=== PATIENT | female | born 1950 | race Caucasian/White ===

== ENCOUNTER 2023-01-29 15:03 | Emergency (ER) | payer MEDICARE, SELFPAY ==
[2023-01-29 15:11] VITALS: BP 134/84; PULSE 67; RESP 16; TEMP 36.7; O2SAT 96; BMI 31.2
--- NOTE | 2023-01-29 15:22 | CRLHL7_ITS ---
For Patients: As a result of the Cures Act, medical imaging exams and procedure reports are released immediately into your electronic medical record. You may view this report before your referring provider. If you have questions, please contact your health care provider. INDICATION: Status post fall with right rib pain. COMPARISON: None available. TECHNIQUE: The right ribs were examined with AP along with AP inferior spot and oblique inferior spot views along with a PA view of the chest for a total of 3 views. FINDINGS: The technologist has indicated the area of pain in the anterior inferior right lower chest, corresponding to the anterior 9th rib. There is no sign of any fracture or osseous destruction in this region to correspond to the clinical symptoms. There is no sign of abnormality of the ribs elsewhere, with no sign of fracture or destructive lesion. There is no sign of pneumothorax. The lungs are clear and the heart and mediastinum are normal in appearance. IMPRESSION: Normal right ribs and PA chest. Dictated by Jamari Freeman MD @ 01/29/2023 4:43:07 PM (Electronically Signed)
--- NOTE | 2023-01-29 17:06 | ED.GENADULT ---
HPI - General Adult General Chief complaint: Rib Pain Stated complaint: fell, pain right ribcage area Time Seen by Provider: 01/29/23 16:25 History of Present Illness HPI narrative: This 72-year-old female comes in with right lower anterior rib pain. She states that she fell a couple days ago and thinks that she landed on her right arm that caused injury to her right ribs. She did not hit her head or have loss of consciousness. She felt rather well initially but over these past couple days now has worsening pain especially when taking a deep breath or coughing. She also has some pain with certain movements and positions typical of a rib injury. She does not report any shortness of breath. Related Data Home Medications Medication Instructions Recorded Confirmed amlodipine PO 03/21/22 03/21/22 atorvastatin PO 03/21/22 03/21/22 dulaglutide [Trulicity] subcut 03/21/22 03/21/22 glyburide PO 03/21/22 03/21/22 metformin PO 03/21/22 03/21/22 cephalexin 500 mg capsule 500 mg PO 3XD 01/29/23 01/29/23 diclofenac sodium 1 % topical gel 2 g topical QID 01/29/23 01/29/23 dulaglutide 3 mg/0.5 mL 3 mg subcut 01/29/23 subcutaneous pen injector (Trulicity) glimepiride 4 mg tablet mg PO 01/29/23 hydrochlorothiazide 50 mg tablet 50 mg PO DAILY 01/29/23 01/29/23 levetiracetam 1,000 mg tablet 1,000 mg PO BID 01/29/23 01/29/23 levothyroxine 100 mcg tablet 100 mcg PO QAM 01/29/23 01/29/23 lisinopril 40 mg tablet 40 mg PO DAILY 01/29/23 01/29/23 metformin 500 mg tablet,extended 2,000 mg PO DAILY 01/29/23 01/29/23 release 24 hr Previous Rx's Medication Instructions Recorded ketorolac 10 mg tablet 10 mg PO Q8H 5 days #15 tabs 01/29/23 Allergies Allergy/AdvReac Type Severity Reaction Status Date / Time niacin AdvReac Mild Rash Verified 01/29/23 15:19 clindamycin AdvReac Unknown Verified 01/29/23 15:19 piroxicam AdvReac Unknown Verified 01/29/23 15:19 penicillin G AdvReac Hives Verified 01/29/23 15:19 nuts Allergy Severe swelling Uncoded 03/21/22 15:40 shellfish Allergy Severe swelling Uncoded 03/21/22 15:40 seafood Allergy Intermediate blood Uncoded 03/21/22 15:40 blisters Review of Systems Status of ROS: Reports: 10 or more systems reviewed and unremarkable except as noted in History and below Narrative: Constitutional: No fevers, no weight gain or loss. Eyes: No discharge. No vision changes. HENT: No congestion, no sore throat, no ear pain. Cardiovascular: No chest pain, no palpitations. Respiratory: No shortness of breath, no wheezes, no cough. Right anterior rib pain. Gastrointestinal: No abdominal pain, no vomiting, no diarrhea. Genitourinary: No dysuria, no hematuria. Musculoskeletal: Normal range of motion. Skin: No rashes, no pruritis. Neurological: No dizziness, weakness, sensory change, speech change. Endo/Heme/Allergies: No bruising or bleeding. No polydipsia. Pysch: no suicidality, no anxiety, no insomnia. All other systems reviewed and are negative. PFSH PFS Social History Smoking Status: Never smoker Exam Narrative: Exam Narrative: Constitutional: Well-developed, well-nourished, no acute distress. HEENT: Normocephalic, atraumatic. Neck: Normal range of motion. Nontender. Supple. Heart: Intact distal pulses. Lungs: No wheezes, rhonchi, or rales. Chest: Distinct pain in the right anterior lower ribs just below her right breast is reproduced when taking a deep breath and when palpating in this area. Abdomen: Nontender. Back: Normal range of motion. Extremities: Normal range of motion. No injury. Skin: Intact. No rash. Warm. No erythema or pallor. Neurologic: No altered sensation. No weakness. Alert and oriented. Psychiatric: No suicidality. No anxiety or depression. No insomnia. Nursing notes and vitals signs are reviewed. Const: Vital Signs, click to edit/add: Vital Signs - 24 hr 01/29/23 15:11 Temperature 98.1 F Pulse Rate [Pulse Oximeter] 67 Respiratory Rate 16 Blood Pressure [Le ft Upper Arm] 134/84 Pulse Oximetry 96 Oxygen Delivery Me thod Room Air Course Vital Signs Vital signs: Initial Vital Signs Temperature 98.1 F 01/29/23 15:11 Temperature Source Temporal Artery Scan 01/29/23 15:11 Pulse Rate 67 01/29/23 15:11 Pulse Rhythm Regular 01/29/23 15:11 Pulse Strength 3+ Normal 01/29/23 15:11 Respiratory Rate 16 01/29/23 15:11 Blood Pressure 134/84 01/29/23 15:11 Blood Pressure Mean 100 01/29/23 15:11 Blood Pressure Position Sitting 01/29/23 15:11 Pulse Oximetry 96 01/29/23 15:11 Oxygen Delivery Method Room Air 01/29/23 15:11 Vital Signs Temperature 98.1 F 01/29/23 15:11 Pulse Rate 67 01/29/23 15:11 Respiratory Rate 16 01/29/23 15:11 Blood Pressure 134/84 01/29/23 15:11 Pulse Oximetry 96 01/29/23 15:11 Oxygen Delivery Method Room Air 01/29/23 15:11 Temperature 98.1 F 01/29/23 15:11 Pulse Rate 67 01/29/23 15:11 Respiratory Rate 16 01/29/23 15:11 Blood Pressure 134/84 01/29/23 15:11 Pulse Oximetry 96 01/29/23 15:11 Oxygen Delivery Method Room Air 01/29/23 15:11 Medical Decision Making MDM Narrative Medical decision making narrative: This patient fell injuring her right anterior lower ribs. This occurred a couple days ago in our rib pain is worsening. Chest x-ray shows no sign of fracture or injury to her lungs. The patient did receive a rib belt which brought some relief to her symptoms. I also did provide a prescription for Toradol. Imaging Data Chest x-ray: Radiologist's impression: No acute findings. No rib fracture or pulmonary disease. Discharge Plan Discharge Clinical Impression: Rib injury Patient Disposition: Home, Self-Care Condition: Unchanged Additional Instructions: Wear rib belt as needed. Activity as tolerated. Use medication as needed and directed. Follow up with MD return if worsening. Prescriptions: New ketorolac 10 mg tablet 10 mg PO Q8H 5 Days Qty: 15 0RF No Action dulaglutide [Trulicity] subcut amlodipine PO glyburide PO metformin PO atorvastatin PO hydrochlorothiazide 50 mg tablet 50 mg PO DAILY levothyroxine 100 mcg tablet 100 mcg PO QAM cephalexin 500 mg capsule 500 mg PO 3XD glimepiride 4 mg tablet PO lisinopril 40 mg tablet 40 mg PO DAILY metformin 500 mg tablet extended release 24 hr 2,000 mg PO DAILY levetiracetam 1,000 mg tablet 1,000 mg PO BID diclofenac sodium 1 % gel 2 g topical QID Trulicity 3 mg/0.5 mL pen injector 3 mg subcut Follow Up/Referrals: Miles Deshpande MD [Primary Care Provider] - Stand Alone Forms: [facility] Info Instructions
== END 2023-01-29 17:24 | disposition home or self-care (01) ==
LOC: ED 17:16
PROVIDERS: Emergency Provider Emergency Medicine Emergency Medical Services; PCP Family Medicine
DX: S29.8XXA Other specified injuries of thorax, initial encounter (principal); W19.XXXA Unspecified fall, initial encounter
CPT/HCPCS: 71101; 99283; 99284

== ENCOUNTER 2023-12-03 00:39 | Outpatient (CLI) | payer MEDICARE, SELFPAY ==
--- OUTSIDE RECORDS SUMMARY | 2023-12-04 17:07 | XMS_ITS | Clinical Summary ---
Author Organization [facility] Address [place], [place] [address] Care Team Providers Care Protohistorian Name Role Phone Miles Deshpande MD Primary [...] Description 11/20/2023 1:00 PM CDT Orders Only [facility] [address] [place] [address] [place], [place] Lab 11/19/2023 2:55 PM CDT Office Visit [facility] [address] [facility] [address] Miles Deshpande MD Diabetes (3 month follow up); Follow Up (Ongoing joint pain) 11/19/2023 Travel 09/14/2023 Refill [facility] [address] [facility] [address] Miles Deshpande MD Refill Request (Glimepiride, Metformin) from Last 3 Months Immunizations Name Administration Dates Next Due Amb Influenza, Inactivated A IIV4 (Age 65+ Years) Preserv Free 04/02/2020 COVID-19 Vaccine Spikevax (M oderna 50mcg/0.5mL) 12YO+ 5530-9999 Formula PF 04/04/2023 COVID-19 vaccine (Bethany-J& J) PF, MDV 08/31/2020 COVID-19 vaccine (Moderna 100mcg/0.5mL) PF, MDV 10/22/2021,04/24/2021 COVID-19 vaccine (Pfizer-Bio NTech 30mcg/0.3mL) 12YO+ BIVALENT PF, MDV 11/11/2022 DTaP 10/13/2011 Influenza Virus, Unspecified 03/12/2009 Influenza, High-dose Inactivated 03/13/2017,1007/2015,03/26/2015 Influenza, High-dose Quadriv alent Inactivated 03/31/2022,03/27/2021 Influenza, [...] st Contact Info) Description 05/27/2024 10:40 AM ROCK CUTTER Ancillary Procedure [facility] [address] [place] [address] 05/31/2024 1:00 PM ROCK CUTTER Orders Only [facility] [address] [place] [address] [place] 05/31/2024 1:15 PM ROCK CUTTER Office Visit [facility] [address] [place] [address] Miles Deshpande MD [address] [place] [address] Health Maintenance Due Date Last Done Comments [...] 02/11/2024 02/10/2023, 04/23/2021, 06/08/2020 (Completed outside of [facility] [address] [facility]), Additional history exists Influenza for age 65+ [...] Post-menopausal ANTI HCV Routine 07/10/2017 4:23 PM ROCK CUTTER Need for hepatitis C screening test from Last 3 Months or Most Recently Relevant to Health Maintenance Results * URINE ALBUMIN TO CREATININE RATIO, RANDOM (11/20/2023 12:58 PM CDT) ALB RAND URINE <12.0 mg/L 11/21/2023 3:58 AM CDT [facility] CREATININE,URINE 0.88 g/L 11/21/19 3:58 AM CDT [facility] ALBUMIN TO CREATININE RATIO,RAND UR 11/21/2023 3:58 AM CDT [facility] Comment:Urine Albumin below measurement range, unable to calculate. Urine URINE SPECIMEN / Unknown Non-Blood / Unknown 11/20/2023 12:58 PM CDT 11/20/2023 12:58 PM CDT Narrative [facility] - 11/21/2023 3:58 AM CDT If Albumin to Creatinine Ratio is elevated, consider the following: ? Elevations seen with incipient nephropathy associated ?? with diabetes mellitus or hypertension. Stress, exercise,hematuria, ?? and urinary tract infection may also produce elevated results. If clinically indicated, confirm with ?24 Hour Albumin to Creatinine Ratio. ?? Miles Deshpande MD URINE [facility] [address] [place] [address], * TSH WITH REFLEX (11/19/2023 2:16 PM CDT) TSH 2.28 0.27 - 4.20 uIU/mL 11/19/2023 11:29 PM CDT [facility] Blood BLOOD SPECIMEN / Unknown Venipuncture / Unknown 11/19/2023 2:16 PM CDT 11/19/2023 2:17 PM CDT Narrative [facility] - 11/19/2023 11:29 PM CDT In Adults, TSH values between 5.00 and 10.00 uIU/ml do not necessarily indicate the presence of Hypothyroidism. Correlation with clinical findings such as presence of goiter and/or Thyroperoxidase (TPO) Antibody may be helpful. For more information please refer to NAUN 2004; 291: 228-238. Miles Deshpande MD CHEMISTRY Performing Organization Address City/[facility]/ZIP Co de Phone Number [facility] [address] [place] [id number], [place] * LIPID PANEL W REFLEX MEASURED LDL (11/19/2023 2:16 PM CDT) CHOLESTEROL,TOTAL 102 100 - 199 mg/dL 11/19/2023 11:29 PM CDT [facility] Comment: Cholesterol, Total Reference Ranges Desirable <200 mg/dL Borderline 200-239 mg/dL High >=240 mg/dL TRIGLYCERIDES 99 <150 mg/dL 11/19/2023 11:29 PM CDT [facility] HDL CHOLESTEROL 49 >40 mg/dL 11:29 PM CDT [facility] NON-HDL CHOLESTEROL 53 <145 mg/dl 11/19/2023 11:29 PM CDT [facility] CHOL/HDL RATIO 2.08 <4.50 11/19/2023 11:29 PM CDT [facility] LDL CHOLESTEROL 33 <=130 mg/dL 11/19/2023 11:29 PM CDT [facility] VLDL CHOLESTEROL 20 <=30 mg/dL 11/19/2023 11:29 PM CDT [facility] PROVIDER ORDERED STATUS RANDOM 11/19/2023 11:29 PM CDT [facility] Blood BLOOD SPECIMEN / Unknown Venipuncture / Unknown 11/19/2023 2:16 PM CDT 11/19/2023 2:17 PM CDT Miles Deshpande MD CHEMISTRY Performing Organization Address [facility]/ZIP Co de Phone Number [facility] [address] [address], [place] * (ABNORMAL) HEMOGLOBIN A1C MONITORING (POCT) (11/19/2023 2:16 PM CDT) [facility] HEMOGLOBIN A1C MONITORING (POCT) 7.5(H) <=6.4 % 11/19/2023 2:26 PM CDT [facility] Blood BLOOD SPECIMEN / Unknown Venipuncture / Unknown 11/19/2023 2:16 PM CDT 11/19/2023 2:17 PM CDT Narrative [facility] - 11/19/2023 2:26 PM CDT ? [...] Anemias, Splenectomy ? Miles Deshpande MD CHEMISTRY [facility] [address] [place] [address], * HEPATIC FUNCTION PANEL (11/19/2023 2:16 PM CDT) [facility] ALBUMIN 4.5 4.0 - 4.9 g/dL 11/19/2023 11:29 PM CDT [facility] PROTEIN,TOTAL 7.8 6.0 - 8.0 g/dL 11/19/2023 11:29 PM CDT [facility] BILIRUBIN,TOTAL 0.7 0.0 - 1.2 mg/dL 11/19/2023 11:29 PM CDT [facility] BILIRUBIN,DIRECT 0.2 0.0 - 0.3 mg/dL 11/19/2023 11:29 PM CDT [facility] BILIRUBIN,INDIRE CT 0.5 0.2 - 0.8 mg/dL 11/19/2023 11:29 PM CDT [facility] ALK PHOSPHATASE 70 35 - 104 IU/L 11/19/2023 11:29 PM CDT [facility] ALT (SGPT) 17 10 - 35 IU/L 11/19/2023 11:29 PM CDT [facility] AST (SGOT) 22 10 - 35 IU/L 11/19/2023 11:29 PM CDT [facility] Blood BLOOD SPECIMEN / Unknown Venipuncture / Unknown 11/19/2023 2:16 PM CDT 11/19/2023 2:17 PM CDT Miles Deshpande MD CHEMISTRY [facility] [address] [place] [address], * (ABNORMAL) BASIC METABOLIC PANEL (11/19/2023 2:16 PM CDT) SODIUM 139 136 - 145 mmol/L 11/19/2023 11:29 PM CDT [facility] POTASSIUM 4.3 3.5 - 5.1 mmol/L 11/19/2023 11:29 PM CDT [facility] CHLORIDE 100 98 - 107 mmol/L 11/19/2023 11:29 PM CDT [facility] CO2,TOTAL 26 22 - 29 mmol/L 11/19/2023 11:29 PM T [facility] ANION GAP 13 5 - 18 11/19/2023 11:29 PM CDT [facility] GLUCOSE 144(H) 70 - 99 mg/dL 11/19/2023 11:29 PM CDT [facility] CALCIUM 10.2 8.8 - 10.2 mg/dL 11/19/2023 11:29 PM CDT [facility] BUN 31(H) 8 - 23 mg/dL 11/19/2023 11:29 PM T [facility] CREATININE 1.11(H) 0.50 - 0.90 mg/dL 11/19/2023 11:29 PM CDT [facility] BUN/CREAT RATIO 28(H) 10 - 20 11:29 PM CDT [facility] eGFR 53(L) >90 mL/min/1.7 3m2 11/19/2023 11:29 PM CDT [facility] Comment:As of 2021, eG [...] 2:17 PM CDT Miles Deshpande MD CHEMISTRY [facility] [address] [place] [address], * XR MAMMO SHIVANI BILAT SCREEN (02/24/2023 [...] care provider. XR MAMMO SHIVANI BILAT SCREEN [[id number]] CLINICAL HISTORY: ??This is an asymptomatic 72 y.o. patient. INDICATION FOR EXAM: Mammogram Screening. TECHNIQUE: CC & MLO views were obtained. ??This study was evaluated with the assistance of Computer-Aided Detection. Breast Tomosynthesis was used in interpretation. COMPARISON FILM: Yes 12/30/21 [facility] 11/05/20 [facility] FINDINGS: ??The breasts have scattered areas of fibroglandular density. There are no dominant masses, suspicious micro calcifications or areas of architectural distortion. Miles Deshpande MD MAMMO * OCCULT BLOOD IFOBT STOOL (02/10/2023 11:49 AM CDT) STOOL BLOOD ,IFOBT Negative Negative 02/16/2023 12:31 PM CDT [facility] Stool STOOL SPECIMEN / Unknown Non-Blood / Unknown 02/10/2023 11:49 AM CDT 02/16/2023 11:49 AM CDT Miles Deshpande MD LABORATORY Performing Organization Address City/State/[facility] Co de Phone Number [facility] [address] [place] [address], * (ABNORMAL) XR DXA BONE DENSITY 2 [...] recommended in 3-5 years. Nicolasa Betancourt PA-C [facility] 11/06/2020 Narrative 11/06/2020 3:29 PM CDT XR DXA Bone Mineral Density (BMD) EXAM LOCATION: [address] [address] PATIENT NAME: Gracia Wyatt DATE OF : [...] two scanners are made by the same bundle tier. PROCEDURE: Dual-energy x-ray absorptiometry performed with routine [...] Miles Deshpande MD DEXA * ANTI HCV [[id number]] (07/10/2017 4:23 PM ROCK CUTTER) HEPATITIS C ANTIBODY Non-Reacti ve Non-Reacti ve 07/10/2017 10:34 PM ROCK CUTTER [facility] Blood BLOOD SPECIMEN / Unknown Venipuncture / Unknown 07/10/2017 4:23 PM ROCK CUTTER 07/10/2017 4:23 PM ROCK CUTTER Narrative [facility] - 07/10/2017 10:34 PM ROCK CUTTER Antibodies to HCV not detected; does not exclude the possibility of exposure to HCV. Miles Deshpande MD SEND OUTS [facility] [address] [place] [address], from Last 3 Months or Most Recently Relevant to Health Maintenance Care Teams Protohistorian Relationship Specialty Start Date End Date Miles Deshpande MD [address] [place] [address] PCP - General Family Practice 05/18/17
== END 2023-12-03 00:40 | disposition home or self-care (01) ==
LOC: AMB 12-04 17:05
PROVIDERS: PCP Family Medicine; Visit Provider Emergency Medicine
DX: R11.10 Vomiting, unspecified (principal); R53.1 Weakness; R42 Dizziness and giddiness
CPT/HCPCS: A0425; A0427

== ENCOUNTER 2023-12-03 01:18 | Emergency (ER) | payer MEDICARE, SELFPAY ==
[2023-12-03 01:25] VITALS: BP 125/60; PULSE 62; RESP 16; TEMP 36.7; O2SAT 97
[2023-12-03 01:41] VITALS: O2SAT 95
--- NOTE | 2023-12-03 01:41 | CRLHL7_ITS ---
For Patients: As a result of the Cures Act, medical imaging exams and procedure reports are released immediately into your electronic medical record. You may view this report before your referring provider. If you have questions, please contact your health care provider. INDICATION: VOMITTING, VERTIGO, LT NECK PAIN TECHNIQUE: Head CT without contrast. COMPARISON: None. FINDINGS: Left occipital craniotomy with underlying left cerebellar and occipital encephalomalacia. Mild nonspecific low attenuation white matter changes consistent with chronic microvascular disease. No sign of mass effect, hemorrhage, or midline shift. No midline shift. The visualized paranasal sinuses and mastoid air cells demonstrate no acute or significant findings. The visualized orbits are grossly unremarkable. No skull fractures. IMPRESSION: 1. No evidence of acute intracranial abnormality on this unenhanced CT. 2. Left occipital craniotomy with underlying left cerebellar and occipital encephalomalacia. 3. Mild nonspecific low attenuation white matter changes consistent with chronic microvascular disease. Please note that all CT scans at this facility use dose modulation, iterative reconstruction, and/or weight-based dosing when appropriate to reduce radiation dose to as low as reasonably achievable. Dictated by Boni Browning MD @ 12/03/2023 4:20:54 AM (Electronically Signed)
--- NOTE | 2023-12-03 01:41 | CRLHL7_ITS ---
For Patients: As a result of the Century Cures Act, medical imaging exams and procedure reports are released immediately into your electronic medical record. You may view this report before your referring provider. If you have questions, please contact your health care provider. CLINICAL HISTORY: Vomiting; vertigo and left neck pain. TECHNIQUE: Standard helical CT image acquisition through the head following the administration of intravenous contrast was performed. 3D and MIP reconstructions were performed at a separate workstation and permanently archived. COMPARISON: None available. FINDINGS: No intracranial proximal large vessel occlusion or flow-limiting luminal stenosis. No evidence of cerebral aneurysm. No findings to suggest an arterial-venous shunting lesion. IMPRESSION: No intracranial proximal large vessel occlusion, flow-limiting luminal stenosis, or cerebral aneurysm. Please note that all CT scans at this facility use dose modulation, iterative reconstruction, and/or weight-based dosing when appropriate to reduce radiation dose to as low as reasonably achievable. Dictated by Shon Marquez MD @ 12/03/2023 2:35:54 PM (Electronically Signed)
--- NOTE | 2023-12-03 01:41 | CRLHL7_ITS ---
For Patients: As a result of the Century Cures Act, medical imaging exams and procedure reports are released immediately into your electronic medical record. You may view this report before your referring provider. If you have questions, please contact your health care provider. CLINICAL HISTORY: Vomiting; vertigo and left neck pain. TECHNIQUE: Standard helical CT image acquisition through the neck was performed after intravenous contrast bolus enhancement. 3D and MIP reconstructions were performed at a separate workstation and permanently archived. COMPARISON: None available. FINDINGS: The origins of the great vessels from the aortic arch are patent. The common carotid arteries are patent. No significant luminal stenoses of the proximal ICAs by NASCET criteria. The more distal cervical segments of the ICAs are patent. The origins and cervical segments of the vertebral arteries are patent. IMPRESSION: Patent cervical arterial vasculature without hemodynamically significant luminal stenosis. Please note that all CT scans at this facility use dose modulation, iterative reconstruction, and/or weight-based dosing when appropriate to reduce radiation dose to as low as reasonably achievable. Dictated by Shon Marquez MD @ 12/03/2023 2:34:12 PM (Electronically Signed)
--- OUTSIDE RECORDS SUMMARY | 2023-12-03 01:49 | XMS_ITS | Clinical Summary ---
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 0 8 Active cholecalciferol (VITAMIN D-3) 2,000 unit capsule Take 1 capsule by mouth once daily. 0 8 Active multivitamin (MVI) tablet Take 1 tablet by mouth once daily. 0 8 Active medication order composer Biotin 400 mcg, once daily 0 8 Active medication order composer Flaxseed gel 1200 mg daily 0 8 Active blood-glucose meterIndications:Con trolled type 2 diabetes mellitus without complication, without long-term current use of insulin (HC) Dispense meter, test strips, lancets covered by pt ins. E11.9 NIDDM type II - Test 1 time/day 1 Device 9 Active lutein-zeaxanthin (Ocuvite Lutein 25) 25-5 mg cap Take 1 Capsule by mouth once daily. 0 2 Active melatonin 10 mg tab Take 1 Tablet (10 mg) by mouth at bedtime if needed (sleep). 0 2 Active lysine (L-Lysine) 500 mg tab Take 1 Tablet (500 mg) by mouth 2 times daily with meals. For three days. Uses for itching flare ups 0 2 Active lancetsIndications:C ontrolled type 2 diabetes mellitus with complication, without long-term current use of insulin (HC) Test 1 times per day. 100 Each 3 2 Active levETIRAcetam (KEPPRA) 1,000 mg tabletIndications:Se izure (HC) TAKE ONE TABLET (1000MG) BY MOUTH 2 TIMES DAILY 180 Tablet 2 Active diclofenac topical (Voltaren) 1 % gelIndications:Arthr itis of carpometacarpal (CMC) joint of left thumb Apply 2 g topically to affected area(s) four times daily. 200 g 3 Active blood sugar diagnostic (Contour Next Test Strips) stripIndications:Con trolled type 2 diabetes mellitus with complication, without long-term current use of insulin (HC) TEST 1 TIME DAILY 100 Each 3 3 Active amLODIPine (NORVASC) 5 mg tabletIndications:Es sential hypertension Take 1 Tablet (5 mg) by mouth once daily. 90 Tablet 3 4 Active atorvastatin (LIPITOR) 20 mg tabletIndications:Hy perlipidemia, unspecified hyperlipidemia type Take 1 Tablet (20 mg) by mouth once daily. 90 Tablet 3 4 Active dulaglutide (Trulicity) 3 mg/0.5 mL subcutaneous penIndications:Contr olled type 2 diabetes mellitus with complication, without long-term current use of insulin (HC) Inject 3 mg subcutaneous once weekly. 6 mL 1 4 Active glimepiride (AMARYL) 4 mg tabletIndications:Co ntrolled type 2 diabetes mellitus with complication, without long-term current use of insulin (HC) Take 2 Tablets (8 mg) by mouth once daily with a meal. 180 Tablet 1 4 Active hydroCHLOROthiazide 50 mg tabletIndications:Es sential hypertension Take 1 Tablet (50 mg) by mouth once daily. 90 Tablet 3 4 Active levothyroxine (SYNTHROID) 100 mcg tabletIndications:Hy pothyroidism (acquired) Take 1 Tablet (100 mcg) by mouth before breakfast. 90 Tablet 3 4 Active lisinopriL (PRINIVIL; ZESTRIL) 40 mg tabletIndications:Es sential hypertension Take 1 Tablet (40 mg) by mouth once daily. 90 Tablet 3 4 Active metFORMIN (GLUCOPHAGE XR) 500 mg Extended-Release tabletIndications:Co ntrolled type 2 diabetes mellitus with complication, without long-term current use of insulin (HC) Take 4 Tablets (2,000 mg) by mouth once daily. 360 Tablet 1 4 Active pioglitazone (ACTOS) 30 mg tabletIndications:Co ntrolled type 2 diabetes mellitus with complication, without long-term current use of insulin (HC) Take 1 Tablet (30 mg) by mouth once daily. 90 Tablet 1 4 Active amLODIPine (NORVASC) 5 mg tabletIndications:Es sential hypertension Take 1 Tablet (5 mg) by mouth once daily. 90 Tablet 3 3 11/19/19 24 Discontinu ed(Reorder (E-cancel not sent)) atorvastatin (LIPITOR) 20 mg tabletIndications:Hy perlipidemia, unspecified hyperlipidemia type Take 1 Tablet (20 mg) by mouth once daily. 90 Tablet 3 3 11/19/19 24 Discontinu ed(Reorder (E-cancel not sent)) hydroCHLOROthiazide 50 mg tabletIndications:Es sential hypertension Take 1 Tablet (50 mg) by mouth once daily. 90 Tablet 3 3 11/19/19 24 Discontinu ed(Reorder (E-cancel not sent)) levothyroxine (SYNTHROID) 100 mcg tabletIndications:Hy pothyroidism (acquired) Take 1 Tablet (100 mcg) by mouth before breakfast. 90 Tablet 3 3 11/19/19 24 Discontinu ed(Reorder (E-cancel not sent)) lisinopriL (PRINIVIL; ZESTRIL) 40 mg tabletIndications:Es sential hypertension Take 1 Tablet (40 mg) by mouth once daily. 90 Tablet 3 3 11/19/19 24 Discontinu ed(Reorder (E-cancel not sent)) pioglitazone (ACTOS) 15 mg tabletIndications:Co ntrolled type 2 diabetes mellitus with complication, without long-term current use of insulin (HC) One oral daily for two weeks, then two daily. 180 Tablet 1 4 11/19/19 24 Discontinu ed(Reorder (E-cancel not sent)) dulaglutide (Trulicity) 3 mg/0.5 mL subcutaneous penIndications:Contr olled type 2 diabetes mellitus with complication, without long-term current use of insulin (HC) INJECT 3 MG SUBCUTANEOUS ONCE WEEKLY. 6 mL 4 11/19/19 24 Discontinu ed(Reorder (E-cancel not sent)) glimepiride (AMARYL) 4 mg tabletIndications:Co ntrolled type 2 diabetes mellitus with complication, without long-term current use of insulin (HC) TAKE 2 TABLETS (8 MG) BY MOUTH ONCE DAILY WITH A MEAL. 180 Tablet 4 11/19/19 24 Discontinu ed(Reorder (E-cancel not sent)) metFORMIN (GLUCOPHAGE XR) 500 mg Extended-Release tabletIndications:Co ntrolled type 2 diabetes mellitus with complication, without long-term current use of insulin (HC) TAKE 4 TABLETS (2,000 MG) BY MOUTH ONCE DAILY. 360 Tablet 4 11/19/19 24 Discontinu ed(Reorder (E-cancel not sent)) Active Problems Problem Noted Date Diagnosed Date Arthritis of carpometacarpal (CMC) joint of left thumb 06/27/2022 Meningioma 11/08/2021 Bilateral lower extremity edema 11/17/2019 Ischemic stroke after crani for meningioma 201307/16/2017 Osteopenia 07/16/2017 Hypothyroidism (acquired) 07/10/2017 Controlled type 2 diabetes m ellitus with complication, without long-term current use of insulin 07/10/2017 Essential hypertension 07/10/2017 Hyperlipidemia 07/10/2017 obesity 07/10/2017 Seizure after crani for meningioma 201307/10/19 18 Resolved Problems Problem Noted Date Diagnosed Date Resolved Date Controlled type 2 diabetes with neuropathy 08/17/2023 11/19/2023 Encounters Date Type Department Care Team Description 11/20/2023 1:00 PM CDT Orders Only [facility] [address] [place] [address] [place], [place] Lab 11/19/2023 2:55 PM CDT Office Visit [facility] [address] [facility] [place] [address] Miles Deshpande MD Diabetes (3 month follow up); Follow Up (Ongoing joint pain) 11/19/2023 Travel 09/14/2023 Refill [facility] [address] [facility] [place] [address] Miles Deshpande MD Refill Request (Glimepiride, Metformin) 09/02/2023 Refill [facility] [address] [place] [address] Miles Deshpande MD Refill Request (Trulicity) from Last 3 Months Immunizations Name Administration Dates Next Due Amb Influenza, Inactivated A IIV4 (Age 65+ Years) Preserv Free 04/02/2020 COVID-19 Vaccine Spikevax (M oderna 50mcg/0.5mL) 12YO+ [id number] Formula PF 04/04/2023 COVID-19 vaccine (Bethany-J& J) PF, MDV 08/31/2020 COVID-19 vaccine (Moderna 100mcg/0.5mL) PF, MDV 10/22/2021,04/24/2021 COVID-19 vaccine (Pfizer-Bio NTech 30mcg/0.3mL) 12YO+ BIVALENT PF, MDV 11/11/2022 DTaP 10/13/2011 Influenza Virus, Unspecified 03/12/2009 Influenza, High-dose Inactivated 03/13/2017,10/0 07/2015,03/26/2015 Influenza, High-dose Quadriv alent Inactivated 03/31/2022,03/27/2021 Influenza, IIV3 (Age >=3 years) 04/25/20 14,03/30/2013,04/01/2012,2009,06/02/2008,04/23/2007,03/26/2006 Influenza, IIV4 03/13/2017 Influenza, Inactivated AIIV4 (Age 65+ Years) Preserv Free 04/04/2023 Influenza, Inactivated IIV3 (Age 65+ Years) Preserv Free 04/06/2019,04/19/2018 Pneumococcal Poly,23-Valent (Pneumovax) 05/24/2018 Pneumococcal conj 13-Valent (Prevnar 13) 03/26/2015,05/30/2014 Tdap 04/19/2018 Zoster (Shingrix-RZV, recombinant) 01/13/2019, Zoster (Zostavax-ZVL, live) 04/01/2012 Family History Medical History Relation Name Comments Diabetes Father Heart Disease Father Heart attack Father Cancer-breast Maternal Aunt x2 Cancer-ovarian Mother Diabetes Mother Relation Name Status Comments Father Maternal Aunt Mother Social History Tobacco Use Types Packs/Day Years Used Date Smoking Tobacco: Never Smokeless Tobacco: Never Tobacco Cessation:Counseling Given: No Alcohol Use Standard Drinks/Week Comments No 0 (1 standard drink = 0.6 oz pur e alcohol) PHQ-2 Answer Date Recorded PHQ-2 TOTAL SCORE 1 11/11/2022 Social Connections Answer Date Recorded Frequency of Communication with Friends and Fami ly 0 02/12/2023 Financial Resource Strain Answer Date R ecorded Difficulty of Paying Living Expenses 3 02/12/2023 Difficulty of Paying Living Expenses Not on file 02/12/2023 Food Insecurity Answer Date Recorded Worried About Running Out of Food in the Last Ye ar 1 02/12/2023 Transportation Needs Answer Date Record ed Lack of Transportation (Medical) 1 02/12/2023 Housing Stability Answer Date Recorded Unable to Pay for Housing in the Last Year 1 02/12/2023 Sex and Gender Information Value Date Recorded Sex Assigned at Not on file Gender Identity Not on file Sexual Orientation Not on file Obstetrics History Last Filed Vital Signs Vital Sign Reading Time Taken Comments Blood Pressure 119/75 11/19/2023 2:23 PM CDT Pulse 61 11/19/2023 2:23 PM CDT Temperature 36.9 ??C (98.4 ??F) 11/17/2019 8:56 AM CD T Respiratory Rate - - Oxygen Saturation 97% 11/19/2023 2:23 PM CDT Inhaled Oxygen Concentration - - Weight 96 kg (211 lb 9.6 oz) 11/19/2023 2:23 PM CDT Height 170.7 cm (5' 7.21) 11/11/2022 10:25 AM C DT Body Mass Index 32.94 11/11/2022 10:25 AM CDT Plan of Treatment Upcoming Encounters Date Type Department Care Team (Late st Contact Info) Description 05/27/2024 10:40 AM SURVEY CAD TECHNICIAN Ancillary Procedure [facility] [place] [address] [address] 05/31/2024 1:00 PM SURVEY CAD TECHNICIAN Orders Only [facility] [address] [place] [address] [place], [place] 05/31/2024 1:15 PM SURVEY CAD TECHNICIAN Office Visit [facility] [address] [place] [address] Miles Deshpande MD [address] [place] [address] Health Maintenance Due Date Last Done Comments COVID-19 vaccine series ( season) 2023 04/04/2023, 11/11/2022, 03/10/2022, Additional history exists BMI (ht and wt on same day) for age 18+ 11/12/2023 11/11/2022, 06/27/2022, 05/30/2022, Additional history exists Depression screening for age 12+ 11/12/2023 11/11/2022, 05/30/2022, 11/01/2020, Additional history exists Medicare Wellness for age 65+ 11/12/2023, 11/08/2021, 11/01/2020, Additional history exists Fecal testing non-DNA (FIT,FOBT,iFOBT) for age 45-75 02/11/2024 02/10/2023, 04/23/2021, 06/08/2020 (Completed outside of [facility]), Additional history exists Influenza for age 65+ 02/21/2024 04/04/2023 , 03/31/2022, 03/27/2021, Additional history exists Mammogram for age 45-75 02/25/2024 02/25/20, 12/30/2021, 11/05/2020, Additional history exists Tetanus booster 04/19/2028 04/19/2018 Lipids for age 45-75 11/18/2028 11/19/2023, 11/06/2022, 11/06/2021, Additional history exists Hepatitis C screening for ag e 18-79 Completed 07/10/2017 Tdap Completed 04/19/2018 Pneumococcal series for age 65+ Completed 05/24/2018, 03/26/2015, 05/30/2014 Zoster (shingles) series for age 50+ Completed 01/13/2019, 09/11/2018, 04/01/2012 DEXA/DXA scan for age 65+ Completed 11/05/2020, Procedures Procedure Name Priority Date/Time Associated Diagnosis Comments URINE ALBUMIN TO CREATININE RATIO, RANDOM Routine 11/20/2023 12:58 PM CDT Controlled type 2 diabetes mellitus with complication, without long-term current use of insulin (HC) HEPATIC FUNCTION PANEL Routine 11/19/2023 2:16 PM CDT Controlled type 2 diabetes mellitus with complication, without long-term current use of insulin (HC) HEMOGLOBIN A1C Routine 11/19/2023 2:16 PM CDT Controlled type 2 diabetes mellitus with complication, without long-term current use of insulin (HC) TSH WITH REFLEX Routine 11/19/2023 2:16 PM CDT Hypothyroidism (acquired) BASIC METABOLIC PANEL Routine 11/19/2023 2:16 PM CDT Controlled type 2 diabetes mellitus with complication, without long-term current use of insulin (HC) LIPID PANEL W REFLEX MEASURED LDL Routine 11/19/2023 2:16 PM CDT Controlled type 2 diabetes mellitus with complication, without long-term current use of insulin (HC) XR MAMMO SHIVANI BILAT SCREEN Routine 02/24/2023 1:44 PM CDT Visit for screening mammogram OCCULT BLOOD IFOBT STOOL Routine 02/10/2023 11:49 AM CDT Screening for colorectal cancer XR DXA BONE DENSITY 2 SITES AXIAL Routine 11/05/2020 11:00 AM CDT Post-menopausal ANTI HCV Routine 07/10/2017 4:23 PM SURVEY CAD TECHNICIAN Need for hepatitis C screening test from Last 3 Months or Most Recently Relevant to Health Maintenance Results * URINE ALBUMIN TO CREATININE RATIO, RANDOM (11/20/2023 12:58 PM CDT) ALB RAND URINE <12.0 mg/L 11/21/2023 3:58 AM CDT [facility] CREATININE,URINE 0.88 g/L 11/21/19 3:58 AM CDT [facility] ALBUMIN TO CREATININE RATIO,RAND UR 11/21/2023 3:58 AM CDT [facility] Comment:Urine Albumin below measurement range, unable to calculate. Urine URINE SPECIMEN / Unknown Non-Blood / Unknown 11/20/2023 12:58 PM CDT 11/20/2023 12:58 PM CDT Narrative [facility] - 11/21/2023 3:58 AM CDT If Albumin to Creatinine Ratio is elevated, consider the following: ? Elevations seen with incipient nephropathy associated ?? with diabetes mellitus or hypertension. Stress, exercise,hematuria, ?? and urinary tract infection may also produce elevated results. If clinically indicated, confirm with ?24 Hour Albumin to Creatinine Ratio. ?? Miles Deshpande MD URINE [facility] [address] [place] [address], * TSH WITH REFLEX (11/19/2023 2:16 PM CDT) TSH 2.28 0.27 - 4.20 uIU/mL 11/19/2023 11:29 PM CDT [facility] Blood BLOOD SPECIMEN / Unknown Venipuncture / Unknown 11/19/2023 2:16 PM CDT 11/19/2023 2:17 PM CDT Narrative [facility] - 11/19/2023 11:29 PM CDT In Adults, TSH values between 5.00 and 10.00 uIU/ml do not necessarily indicate the presence of Hypothyroidism. Correlation with clinical findings such as presence of goiter and/or Thyroperoxidase (TPO) Antibody may be helpful. For more information please refer to NAUN 2004; 291: 228-238. Miles Deshpande MD CHEMISTRY Performing Organization Address City/[facility]/ZIP Co de Phone Number [facility] [address] [place] [address], * LIPID PANEL W REFLEX MEASURED LDL (11/19/2023 2:16 PM CDT) [facility] CHOLESTEROL,TOTAL 102 100 - 199 mg/dL 11/19/2023 11:29 PM CDT [facility] Comment: Cholesterol, Total Reference Ranges Desirable <200 mg/dL Borderline 200-239 mg/dL High >=240 mg/dL TRIGLYCERIDES 99 <150 mg/dL 11/19/2023 11:29 PM CDT [facility] HDL CHOLESTEROL 49 >40 mg/dL 11:29 PM CDT [facility] NON-HDL CHOLESTEROL 53 <145 mg/dl 11/19/2023 11:29 PM CDT [facility] CHOL/HDL RATIO 2.08 <4.50 11/19/2023 11:29 PM CDT [facility] LDL CHOLESTEROL 33 <=130 mg/dL 11/19/2023 11:29 PM CDT [facility] VLDL CHOLESTEROL 20 <=30 mg/dL 11/19/2023 11:29 PM CDT [facility] PROVIDER ORDERED STATUS RANDOM 11/19/2023 11:29 PM CDT [facility] Blood BLOOD SPECIMEN / Unknown Venipuncture / Unknown 11/19/2023 2:16 PM CDT 11/19/2023 2:17 PM CDT Miles Deshpande MD CHEMISTRY [facility] [address] [place] [address], * (ABNORMAL) HEMOGLOBIN A1C MONITORING (POCT) (11/19/2023 2:16 PM CDT) [facility] HEMOGLOBIN A1C MONITORING (POCT) 7.5(H) <=6.4 % 11/19/2023 2:26 PM CDT [facility] Blood BLOOD SPECIMEN / Unknown Venipuncture / Unknown 11/19/2023 2:16 PM CDT 11/19/2023 2:17 PM CDT Narrative [facility] - 11/19/2023 2:26 PM CDT ? (<=6.9%) ? Indicates good control ? (7.0% to 7.9%) ? Indicates fair control ? (>=8.0%) ? Indicates poor control ?? NOTE: ??These thresholds are guidelines and ?individual targets may vary. Falsely low levels may be seen with: Recent Transfusion, Recent Significant Blood Loss, Hemolytic Diseases, or Falsely elevated levels may be seen with: Untreated Anemias, Splenectomy ? Miles Deshpande MD CHEMISTRY [facility] [address] [place] [address], [place] [phone] * HEPATIC FUNCTION PANEL (11/19/2023 2:16 PM CDT) [facility] ALBUMIN 4.5 4.0 - 4.9 g/dL 11/19/2023 11:29 PM CDT [facility] PROTEIN,TOTAL 7.8 6.0 - 8.0 g/dL 11/19/2023 11:29 PM CDT [facility] BILIRUBIN,TOTAL 0.7 0.0 - 1.2 mg/dL 11/19/2023 11:29 PM CDT [facility] BILIRUBIN,DIRECT 0.2 0.0 - 0.3 mg/dL 11/19/2023 11:29 PM CDT [facility] BILIRUBIN,INDIRE CT 0.5 0.2 - 0.8 mg/dL 11/19/2023 11:29 PM CDT [facility] ALK PHOSPHATASE 70 35 - 104 IU/L 11/19/2023 11:29 PM CDT [facility] ALT (SGPT) 17 10 - 35 IU/L 11/19/2023 11:29 PM CDT [facility] AST (SGOT) 22 10 - 35 IU/L 11/19/2023 11:29 PM CDT [facility] Blood BLOOD SPECIMEN / Unknown Venipuncture / Unknown 11/19/2023 2:16 PM CDT 11/19/2023 2:17 PM CDT Miles Deshpande MD CHEMISTRY [facility] [address] [place] [address], * (ABNORMAL) BASIC METABOLIC PANEL (11/19/2023 2:16 PM CDT) SODIUM 139 136 - 145 mmol/L 11/19/2023 11:29 PM CDT [facility] POTASSIUM 4.3 3.5 - 5.1 mmol/L 11/19/2023 11:29 PM CDT [facility] CHLORIDE 100 98 - 107 mmol/L 11/19/2023 11:29 PM CDT [facility] CO2,TOTAL 26 22 - 29 mmol/L 11/19/2023 11:29 PM CDT [facility] ANION GAP 13 5 - 18 11/19/2023 11:29 PM CDT [facility] GLUCOSE 144(H) 70 - 99 mg/dL 11/19/2023 11:29 PM CDT [facility] CALCIUM 10.2 8.8 - 10.2 mg/dL 11/19/2023 11:29 PM CDT [facility] BUN 31(H) 8 - 23 mg/dL 11/19/2023 11:29 PM CDT [facility] CREATININE 1.11(H) 0.50 - 0.90 mg/dL 11/19/2023 11:29 PM CDT [facility] BUN/CREAT RATIO 28(H) 10 - 20 11:29 PM CDT [facility] eGFR 53(L) >90 mL/min/1.7 3m2 11/19/2023 11:29 PM CDT [facility] Comment:As of 2021, eG FR is calculated by the CKD-EPI creatinine equation without race adjustment. ??eGFR can be influenced by muscle mass, exercise, and diet. ??The reported eGFR is an estimation only and is only applicable if the renal function is stable. Blood BLOOD SPECIMEN / Unknown Venipuncture / Unknown 11/19/2023 2:16 PM CDT 11/19/2023 2:17 PM CDT Miles Deshpande MD [facility] [address] [place] [address], * XR MAMMO SHIVANI BILAT SCREEN (02/24/2023 1:44 PM CDT) Anatomical Region Laterality Modality BREASTS, Breast Left, Breast Right Bilateral Mammography Impressions 02/24/2023 3:47 PM CDT ??There is no radiographic evidence for malignancy. ??Recommend annual mammograms. MAMMOGRAM ASSESSMENT: ??ACR 1 Negative PATIENTS: You will also receive a letter with your examination results in an easy to read format. ??If you have questions about your results, please contact your referring provider. Narrative 02/24/2023 3:47 PM CDT For Patients: As a result of the 21st Century Cures Act, medical imaging exams and procedure reports are released immediately into your electronic medical record. You may view this report before your referring provider. If you have questions, please contact your health care provider. XR MAMMO SHIVANI BILAT SCREEN [[id number]] CLINICAL HISTORY: ??This is an asymptomatic 72 y.o. patient. INDICATION FOR EXAM: Mammogram Screening. TECHNIQUE: CC & MLO views were obtained. ??This study was evaluated with the assistance of Computer-Aided Detection. Breast Tomosynthesis was used in interpretation. COMPARISON FILM: Yes 12/30/21 [facility] 11/05/20 [facility] FINDINGS: ??The breasts have scattered areas of fibroglandular density. There are no dominant masses, suspicious micro calcifications or areas of architectural distortion. Miles Deshpande MD MAMMO * OCCULT BLOOD IFOBT STOOL (02/10/2023 11:49 AM CDT) STOOL BLOOD ,IFOBT Negative Negative 02/16/2023 12:31 PM CDT [facility] Stool STOOL SPECIMEN / Unknown Non-Blood / Unknown 02/10/2023 11:49 AM CDT 02/16/2023 11:49 AM CDT Miles Deshpande MD LABORATORY [facility] [address] [place] [address], * (ABNORMAL) XR DXA BONE DENSITY 2 SITES AXIAL (11/05/2020 11:00 AM CDT) Anatomical Region Laterality Modality Spine, HIPS, HIPL, HIPR Other Impressions 11/06/2020 3:29 PM CDT Osteopenia. RECOMMENDATIONS: The National Osteoporosis Foundation recommends pharmacologic treatment for patients with T-scores of -2.5 or less, patients with prior history of fragility fractures, or patients with 10-year probability of greater than 3% at hips or greater than 20% of suffering major osteoporotic fractures. Recommend continued optimization of calcium and vitamin D intake through dietary means and/or supplementation and regular exercise. Repeat scan recommended in 3-5 years. Nicolasa Betancourt PA-C [facility] 11/06/2020 Narrative 11/06/2020 3:29 PM CDT XR DXA Bone Mineral Density (BMD) EXAM [facility] [address] [facility] [address] PATIENT NAME: Gracia Wyatt DATE OF : 1950 EXAM DATE: 11/05/2020 REQUESTING PROVIDER: Miles Deshpande MD GENDER AT : female HEIGHT: 5' 7.24 (11/01/2020) WEIGHT: ??218 lb 12.8 oz (11/01/2020) MENOPAUSAL STATUS: Postmenopausal RACE/ETHNICITY: White RISK FACTORS: No Risk Factors CURRENT MEDICATION FOR BONE LOSS: NONE INDICATION: Follow-up of existing osteopenia COMPARISON DATE(S): 2017 DXA scans are compared to prior studies for a patient only when the two (or more) studies were performed on the same scanner. It is not possible to compare data generated on one scanner to data from another because there are not standards in DXA equipment. This applies even if the two scanners are made by the same tyre retreader. PROCEDURE: Dual-energy x-ray absorptiometry performed with routine technique. Reporting is completed in the form of a T-score. The T-score represents the standard deviation from peak bone mass based on young healthy adult. A Z-score is used for diagnosis in premenopausal women, and for men under the age of 50. FINDINGS: RESULT LUMBAR SPINE L1 - L4 BMD: 1.299 g/cm2 T-Score: + 0.8 Z-Score: + 1.4 Comparison to most recent scan ??in 2018: ??Decrease -1.2%. RESULT FEMORAL NECK Left Total Femoral Neck BMD: 0.833 g/cm2 T-Score: - 1.5 Z-Score: - 0.5 RESULT TOTAL HIP Bilateral Total Hip BMD: 0.861 g/cm2 T-Score: - 1.2 Z-Score: - 0.5 Comparison to most recent scan ??in 2018: ??Decrease -1.5%. ?? WHO criteria: Normal: T-score at or above -1 SD Osteopenia: T-score between -1.1 and -2.4 SD Osteoporosis: T-score at or below -2.5 SD FRAX RISK CALCULATION (USED FOR OSTEOPENIA ONLY): 10-year probability of major osteoporotic fracture: 9.4%. 10-year probability of hip fracture: 1.3%. Miles Deshpande MD DEXA * ANTI HCV [57005.2] (07/10/2017 4:23 PM SURVEY CAD TECHNICIAN) HEPATITIS C ANTIBODY Non-Reacti ve Non-Reacti ve 07/10/2017 10:34 PM SURVEY CAD TECHNICIAN [facility] Blood BLOOD SPECIMEN / Unknown Venipuncture / Unknown 07/10/2017 4:23 PM SURVEY CAD TECHNICIAN 07/10/2017 4:23 PM SURVEY CAD TECHNICIAN Narrative [facility] - 07/10/2017 10:34 PM SURVEY CAD TECHNICIAN Antibodies to HCV not detected; does not exclude the possibility of exposure to HCV. Miles Deshpande MD SEND OUTS [facility] [address] [place] [address], from Last 3 Months or Most Recently Relevant to Health Maintenance Care Teams Bass Viol Repairer Relationship Specialty Start Date End Date Miles Deshpande MD [address] [place] [address] PCP - General Family Practice 05/18/17
--- NOTE | 2023-12-03 01:53 | ED.GENADULT ---
HPI - General Adult General Date Seen: 12/03/23 Chief complaint: Nausea/Vomiting Stated complaint: vomiting neck pain, weakness Time Seen by Provider: 12/03/23 01:20 Source: patient, EMS and RN notes reviewed Mode of arrival: EMS Limitations: no limitations History of Present Illness HPI narrative: Patient is a 72-year-old woman with past medical history notable for benign brain mass status post resection, stroke, seizure disorder at the time of that surgery, not anticoagulated. She notes over the past couple of weeks she has had some brief episodes of what she calls ?lightheadedness, though when I clarify, she means dizziness or spinning. She has had vertigo in the past and so did not think a lot of this. She notes that she has been under significant stress and has not been sleeping very well due to her 's health issues. He had surgery on Thursday and she was at the hospital all day with him then. She says that she did get a good night's sleep on Thursday, felt okay yesterday, but tonight started to feel like her blood sugar might be low, checked it and it was 100. She thought she should probably get something to eat so she went upstairs and 8 something felt improved. She went to bed, and then says she became nauseated, dizzy, and broke out in a sweat. She denies any chest pain. She has had some pain in the posterior left neck and head which she says she tends to notice when she gets stressed or fatigued, this is where her brain surgery was per her report. She denies any dizziness right now, but still was vomiting. Received Zofran in the ambulance. Continues to deny chest pain or difficulty breathing, has no abdominal pain or back pain. No recent fevers or other illness aside from what is described above. She does not smoke or drink, lives at home with her . Her daughter is with her tonight. Related Data Home Medications ?Medication ?Instructions ?Recorded ?Confirmed amlodipine PO 03/21/22 03/21/22 atorvastatin PO 03/21/22 03/21/22 dulaglutide [Trulicity] subcut 03/21/22 03/21/22 glyburide PO 03/21/22 03/21/22 metformin PO 03/21/22 03/21/22 cephalexin 500 mg capsule 500 mg PO 3XD 01/29/23 01/29/23 diclofenac sodium 1 % topical gel 2 g topical QID 01/29/23 01/29/23 dulaglutide 3 mg/0.5 mL 3 mg subcut 01/29/23 subcutaneous [facility] glimepiride 4 mg tablet mg PO 01/29/23 hydrochlorothiazide 50 mg tablet 50 mg PO DAILY 01/29/23 01/29/23 levetiracetam 1,000 mg tablet 1,000 mg PO BID 01/29/23 01/29/23 levothyroxine 100 mcg tablet 100 mcg PO QAM 01/29/23 01/29/23 lisinopril 40 mg tablet 40 mg PO DAILY 01/29/23 01/29/23 metformin 500 mg tablet,extended 2,000 mg PO DAILY 01/29/23 01/29/23 release 24 hr Previous Rx's ?Medication ?Instructions ?Recorded ketorolac 10 mg tablet 10 mg PO Q8H 5 days #15 tabs 01/29/23 Allergies Allergy/AdvReac Type Severity Reaction Status Date / Time niacin AdvReac Mild Rash Verified 01/29/23 15:19 clindamycin AdvReac Unknown Verified 01/29/23 15:19 piroxicam AdvReac Unknown Verified 01/29/23 15:19 penicillin G AdvReac Hives Verified 01/29/23 15:19 nuts Allergy Severe swelling Uncoded 03/21/22 15:40 shellfish Allergy Severe swelling Uncoded 03/21/22 15:40 seafood Allergy Intermediate blood Uncoded 03/21/22 15:40 blisters Review of Systems Status of ROS: Reports: 10 or more systems reviewed and unremarkable except as noted in History and below [facility] Medical History Health care directive on file ?Z78.9 - Other specified health status (ICD-10) Social History Smoking Status: Never smoker Do you use any of these nicotine containing products: None Second hand tobacco smoke exposure: No How often do you have a drink containing alcohol: monthly or less How often do you have six or more drinks on one occasion: Never AUDIT-C Alcohol total score: 1 Non-prescribed substance use: denies use service: No Exam Narrative: Exam Narrative: Vital signs as noted above. In general, an alert, nontoxic woman. Head: Normocephalic, atraumatic. Eyes: Pupils are equal reactive. Extraocular movements are full. Conjunctivae are normal. No nystagmus. ENT: Mucous membranes are moist. Throat is normal. Tongue is midline. Neck: Supple without lymphadenopathy. Heart: Regular rate and rhythm. No murmur or rub. Lungs: Clear bilaterally. No increased work of breathing, crackles or wheezes. Abdomen: Soft and nontender. No organomegaly. Extremities: Well perfused. No edema. No calf tenderness. Pulses intact. Neurologic: Patient is alert and oriented to person and place. Speech is fluent. Face is symmetric. Moves all extremities equally. No ataxia. Affect: Normal. Skin: Warm and dry. Well perfused. Const: Vital Signs, click to edit/add: Vital Signs - 24 hr 12/03/23 01:25 12/03/23 01:41 12/03/23 02:41 Temperature 98.1 F Pulse Rate 69 Pulse Rate [Right Pulse Oximeter] 62 Respiratory Rate 16 Blood Pressure Blood Pressure [Le ft Upper Arm] 125/60 Pulse Oximetry 97 95 98 Oxygen Delivery Me thod Room Air 12/03/23 02:43 Temperature Pulse Rate 67 Pulse Rate [Right Pulse Oximeter] Respiratory Rate Blood Pressure 134/76 Blood Pressure [Le ft Upper Arm] Pulse Oximetry 98 Oxygen Delivery Me thod Documenting provider has reviewed patient's vital signs: yes Course Course ED Course: Diagnostic considerations are broad at this time and include intracranial hemorrhage or stroke, vertebral artery dissection, peripheral vertigo, acute coronary syndrome, aortic pathology, gastrointestinal causes such as gastritis, viral syndrome, bowel obstruction seems less likely in the absence of any history of bowel surgeries or abdominal pain, metabolic derangement. CT CT angiogram of the head and neck ordered along with EKG, which by my review shows sinus rhythm, ventricular rate of 60, first-degree AV block with a GA of [address] segments changes. Unremarkable T-waves. Imaging pending as are labs. Will try some Reglan, L of normal saline ordered. Patient's nausea and vomiting improved with Reglan, she has felt well at this time. No problems with balance or dizziness, other neurologic complaints. She has not had pain aside from the head and neck pain that she mentioned at the time for initial conversation. Again, this is not an uncommon symptom for her. I did do imaging of the head with CT and CT angiogram. These are read by Radiology as showing no acute findings, microvascular changes in the brain. No evidence of dissection or significant stenosis in the vasculature. Her labs are reassuring, white blood cell count is normal at 6 with a normal diff, hemoglobin is 12. D-dimer is normal corrected for age at 0.59, metabolic panel is normal with the exception of a BUN of 35 and a blood sugar which is elevated at 159. She does have a history of diabetes. Lactate is normal at 1.8, LFTs are normal and CRP is less than 0.5. Urinalysis is negative. Point of care troponin was 0.01. At this time she is feeling well, no evidence of an acute intracranial process and no findings on neurologic exam at any time to suggest stroke. She feels comfortable with discharge home and I think that is reasonable. Return any time for acute worsening. I prescribed some Zofran for home use if needed. Primary care follow-up in the next week for recheck. Vital Signs Vital signs: Initial Vital Signs Temperature 98.1 F 12/03/23 01:25 Temperature Source Temporal Artery Scan 12/03/23 01:25 Pulse Rate 62 12/03/23 01:25 Pulse Rhythm Regular 12/03/23 01:25 Respiratory Rate 16 12/03/23 01:25 Blood Pressure 125/60 12/03/23 01:25 Blood Pressure Mean 81 12/03/23 01:25 Pulse Oximetry 97 12/03/23 01:25 Oxygen Delivery Method Room Air 12/03/23 01:25 Vital Signs Temperature 98.1 F 12/03/23 01:25 Pulse Rate 62 12/03/23 01:25 Respiratory Rate 16 12/03/23 01:25 Blood Pressure 125/60 12/03/23 01:25 Pulse Oximetry 97 12/03/23 01:25 Oxygen Delivery Method Room Air 12/03/23 01:25 Temperature 98.1 F 12/03/23 01:25 Pulse Rate 67 12/03/23 02:43 Respiratory Rate 16 12/03/23 01:25 Blood Pressure 134/76 12/03/23 02:43 Pulse Oximetry 98 12/03/23 02:43 Oxygen Delivery Method Room Air 12/03/23 01:25 Medications Administered Medications: Discontinued Medications Generic Name Dose Route Start Last Admin Trade Name Freq PRN Reason Stop Dose Admin Sodium Chloride 1,000 mls @ 1,000 mls/hr 12/03/23 01:45 12/03/23 02:10 0.9 % Sodium Chloride 1000 Ml IV 12/03/23 02:44 1,000 mls/hr .Q1H SHRADDHA Administration Metoclopramide HCl 10 mg/ 102 mls @ 306 mls/hr 12/03/23 01:41 12/03/23 02:26 Sodium Chloride IVPB 12/03/23 01:42 Infused ONCE ONE Infusion Medical Decision Making Lab Data Labs: Lab Results 12/03/23 12/03/23 12/03/23 Range/Units 01:42 02:25 03:15 WBC 5.97 (4.50-11.00) K/uL RBC 4.10 (4.00-5.20) m/uL Hgb 12.2 (12.0-16.0) gm/dL Hct 37.6 (33.0-51.0) % MCV 92 (80-100) fL MCH 30 (26-34) pg MCHC 32 (32-36) gm/dL RDW Coeff of Rossi 13.7 (11.5-15.5) % Plt Count 227 (140-440) K/uL Neut % (Auto) 71.1 (42.0-72.0) % Lymph % (Auto) 20.1 (20-44) % [place] % (Auto) 7.2 (0.0-11.0) % Eos % (Auto) 1.2 (0.0-7.0) % Baso % (Auto) 0.2 (0.0-3.0) % Neut # (Auto) 4.25 (1.7-7.0) K/uL Lymph # (Auto) 1.20 (0.90-2.90) K/uL [place] # (Auto) 0.40 (0.00-0.90) K/UL Eos # (Auto) 0.07 (0.00-0.50) K/uL Baso # (Auto) 0.01 (0.00-0.30) K/uL Abs Immat Gran (auto) 0.01 (0.00-0.30) K/uL Imm/Tot Granulo (auto) 0.2 % D-Dimer Quant (PE/DVT) 0.59 H (0.00-0.50) ug/ml Sodium 139 (135-149) mmol/L Potassium 3.9 (3.6-5.1) mmol/L Chloride 106 (96-114) mmol/L Carbon Dioxide 26 (20-32) mmol/L Anion Gap 7 (7-15) mEq/L BUN 35 H (7-30) mg/dL Creatinine 1.0 (0.5-1.5) mg/dL Estimated GFR 59 ml/min Glucose 159 H (60-115) mg/dL Lactate 1.8 (0.5-1.9) mmol/L Calcium 9.1 (8.4-10.6) mg/dL Total Bilirubin 0.6 (0.1-1.5) mg/dL Direct Bilirubin 0.3 (0.0-0.5) mg/dL AST 23 (12-35) U/L ALT 18 (4-35) U/L Alkaline Phosphatase 66 (40-150) U/L C-Reactive Protein < 0.5 L (0.5-1.0) mg/dL Total Protein 7.6 (6.0-8.3) g/dL Albumin 4.3 (3.3-5.0) g/dL Urine Color Yellow (Yellow) Urine Appearance Clear (Clear) Urine pH 7.0 (5.0-8.5) Ur Specific Hydes 1.020 (1.000-1.030) Urine Protein Negative (Negative) Urine Glucose (UA) Negative (Negative) Urine Ketones Negative (Negative) Urine Blood Negative (Negative) Urine Nitrite Negative (Negative) Urine Bilirubin Negative (Negative) Urine Urobilinogen 0.2 (0.2-1.0) Ur Leukocyte Esterase Negative (Negative) Urine RBC 0-2 (0-2) Urine WBC 0-2 (0-5) Ur Squamous Epith Cells Few (None-Few) Amorphous Sediment Few A (None) Urine Bacteria Few A (None) POC Troponin I 0.01 (0.01-0.04) ng/ml Discharge Plan Discharge Clinical Impression: Vomiting Patient Disposition: Home, Self-Care Condition: Improved Instructions: Acute Nausea and Vomiting (DC) Additional Instructions: Zofran if needed. Clear liquids, advance as her stomach allows. Return any time for recurrent or worsening symptoms, see primary doctor in the next week for recheck. Prescriptions: No Action dulaglutide [Trulicity] subcut amlodipine PO glyburide PO metformin PO atorvastatin PO hydrochlorothiazide 50 mg tablet 50 mg PO DAILY levothyroxine 100 mcg tablet 100 mcg PO QAM cephalexin 500 mg capsule 500 mg PO 3XD glimepiride 4 mg tablet PO lisinopril 40 mg tablet 40 mg PO DAILY metformin 500 mg tablet extended release 24 hr 2,000 mg PO DAILY levetiracetam 1,000 mg tablet 1,000 mg PO BID diclofenac sodium 1 % gel 2 g topical QID Trulicity 3 mg/0.5 mL pen injector 3 mg subcut ketorolac 10 mg tablet 10 mg PO Q8H 5 Days Qty: 15 0RF Follow Up/Referrals: Miles Deshpande MD [Primary Care Provider] - Stand Alone Forms: MyHealth Info Instructions
[2023-12-03] MEDS: METOCLOPRAMIDE HCL 10 MG in 0.9 % SODIUM CHLORIDE 100 ml 100 ML 306 MG IVPB (02:06)
[2023-12-03] MEDS: 0.9 % SODIUM CHLORIDE 1000 ml 1,000 ML IV (02:10)
[2023-12-03 02:25] LABS: Troponin, Point-of-Care* 0.01 ng/ml (0.01-0.04)
[2023-12-03 02:31] LABS: Basophils Absolute Auto 0.01 K/uL (0.00-0.30); Basophils Percent Auto 0.2 % (0.0-3.0); Eosinophils Absolute Auto 0.07 K/uL (0.00-0.50); Eosinophils Percent Auto 1.2 % (0.0-7.0); Hematocrit 37.6 % (33.0-51.0); Hemoglobin* 12.2 gm/dL (12.0-16.0); Immature Granulocytes Abs Auto 0.01 K/uL (0.00-0.30); Immature Granulocytes Pct Auto 0.2 %; Lymphocytes Percent Auto 20.1 % (20-44); Mean Corpuscular HGB Conc 32 gm/dL (32-36); Mean Corpuscular Hemoglobin 30 pg (26-34); Mean Corpuscular Volume 92 fL (80-100); Monocytes Percent Auto 7.2 % (0.0-11.0); Neutrophils Absolute Auto 4.25 K/uL (1.7-7.0); Neutrophils Percent Auto 71.1 % (42.0-72.0); Platelet Count* 227 K/uL (140-440); RDW Coefficient of Variation % 13.7 % (11.5-15.5); White Blood Count* 5.97 K/uL (4.50-11.00)
[2023-12-03 02:33] LABS: Lactate Sepsis w/Reflex* 1.8 mmol/L (0.5-1.9); Slide Review Reflex No
[2023-12-03 02:41] VITALS: PULSE 69; O2SAT 98
[2023-12-03 02:43] VITALS: BP 134/76; PULSE 67; O2SAT 98
[2023-12-03 02:50] LABS: Albumin* 4.3 g/dL (3.3-5.0); Chloride* 106 mmol/L (96-114); Sodium* 139 mmol/L (135-149)
[2023-12-03 02:51] LABS: Potassium* 3.9 mmol/L (3.6-5.1)
[2023-12-03 02:52] LABS: Estimated Glomerular Filt Rate 59 ml/min
[2023-12-03 02:53] LABS: Alanine Aminotransferase* 18 U/L (4-35); Alkaline Phosphatase* 66 U/L (40-150); Anion Gap 7 mEq/L (7-15); Aspartate Amino Transferase* 23 U/L (12-35); Bilirubin Direct* 0.3 mg/dL (0.0-0.5); Bilirubin Total* 0.6 mg/dL (0.1-1.5); Blood Urea Nitrogen* 35 mg/dL (7-30); Carbon Dioxide* 26 mmol/L (20-32); Total Protein* 7.6 g/dL (6.0-8.3)
[2023-12-03 02:54] LABS: Calcium* 9.1 mg/dL (8.4-10.6); Glucose* 159 mg/dL (60-115)
[2023-12-03 02:59] LABS: C Reactive Protein* < 0.5 mg/dL (0.5-1.0)
[2023-12-03 03:02] LABS: D Dimer Quantitative* 0.59 ug/ml (0.00-0.50)
[2023-12-03 03:23] LABS: Appearance Urine Clear (Clear); Bilirubin Urine Negative (Negative); Blood Urine Negative (Negative); Color Urine Yellow (Yellow); Glucose Urine Negative (Negative); Ketones Urine Negative (Negative); Leukocyte Esterase Urine Negative (Negative); Nitrite Urine Negative (Negative); Protein Urine Negative (Negative); Urobilinogen Urine 0.2 (0.2-1.0)
[2023-12-03 03:34] LABS: Amorphous Sediment Urine Few; Bacteria Urine Few; RBC Urine 0-2 (0-2); Squamous Epithelial Cell Urine Few (None-Few); WBC Urine 0-2 (0-5)
== END 2023-12-03 04:57 | disposition home or self-care (01) ==
PROVIDERS: Emergency Provider Emergency Medicine; PCP Family Medicine
DX: R11.10 Vomiting, unspecified (principal); R82.90 Unspecified abnormal findings in urine
CPT/HCPCS: 36415; 70450; 70496; 70498; 80048; 80076; 81001; 83605; 84484; 85025; 85379; 86140; 87086; 93005; 94761; 99284; 99285; J2765; J7030; Q9967

== ENCOUNTER 2024-02-12 11:26 | Emergency (ER) | payer MEDICARE, SELFPAY ==
[2024-02-12 11:57] VITALS: BP 139/84; PULSE 69; RESP 28; TEMP 37; O2SAT 100; BMI 28.7
--- NOTE | 2024-02-12 13:58 | ED_ITS ---
HPI - General Adult General Chief complaint: Fall/Minor Trauma Stated complaint: fall, chin/back/arm Time Seen by Provider: 02/12/24 13:44 Source: patient Mode of arrival: ambulatory Limitations: no limitations History of Present Illness HPI narrative: Patient is a 73-year-old female coming in today with concerns of back pain after a fall. Patient states that she was at home today when she lost her footing and fell forward onto her hands and knees on to carpeted tayler at home. Patient states that she felt acute low back pain that radiated across the entire lower back and into the left buttocks. She was able to stand up. However she states that she was so uncomfortable that she drove herself to the emergency room. She states that her pain is much better, she denies any loss of bowel or bladder function. She states that she is able to ambulate without significant difficulty. She states that she did hit her chin on if he suffered sure of her chin, neck, upper back all feel fine. She has chronic wrist and ankle pain which is unchanged today. Related Data Home Medications ?Medication ?Instructions ?Recorded ?Confirmed amlodipine PO 03/21/22 03/21/22 atorvastatin PO 03/21/22 03/21/22 dulaglutide [Trulicity] subcut 03/21/22 03/21/22 glyburide PO 03/21/22 03/21/22 metformin PO 03/21/22 03/21/22 cephalexin 500 mg capsule 500 mg PO 3XD 01/29/23 01/29/23 diclofenac sodium 1 % topical gel 2 g topical QID 01/29/23 01/29/23 dulaglutide 3 mg/0.5 mL 3 mg subcut 01/29/23 subcutaneous pen injector (Trulicity) glimepiride 4 mg tablet mg PO 01/29/23 hydrochlorothiazide 50 mg tablet 50 mg PO DAILY 01/29/23 02/12/24 levetiracetam 1,000 mg tablet 1,000 mg PO BID 01/29/23 02/12/24 levothyroxine 100 mcg tablet 100 mcg PO QAM 01/29/23 02/12/24 lisinopril 40 mg tablet 40 mg PO DAILY 01/29/23 02/12/24 metformin 500 mg tablet,extended 2,000 mg PO DAILY 01/29/23 02/12/24 release 24 hr amlodipine 5 mg tablet 5 mg PO DAILY 02/12/24 02/12/24 pioglitazone 30 mg tablet 30 mg PO DAILY 02/12/24 02/12/24 Previous Rx's ?Medication ?Instructions ?Recorded ketorolac 10 mg tablet 10 mg PO Q8H 5 days #15 tabs 01/29/23 Allergies Allergy/AdvReac Type Severity Reaction Status Date / Time niacin AdvReac Mild Rash Verified 12/03/23 06:06 clindamycin AdvReac Unknown Verified 12/03/23 06:06 piroxicam AdvReac Unknown Verified 12/03/23 06:06 penicillin G AdvReac Hives Verified 12/03/23 06:06 nuts Allergy Severe swelling Uncoded 12/03/23 06:06 shellfish Allergy Severe swelling Uncoded 12/03/23 06:06 seafood Allergy Intermediate blood Uncoded 12/03/23 06:06 blisters Review of Systems Status of ROS: Reports: 10 or more systems reviewed and unremarkable except as noted in History and below [facility] Medical History Health care directive on file ?Z78.9 - Other specified health status (ICD-10) Social History Smoking Status: Never smoker Do you use any of these nicotine containing products: None Second hand tobacco smoke exposure: No How often do you have a drink containing alcohol: monthly or less How often do you have six or more drinks on one occasion: Never AUDIT-C Alcohol total score: 1 Non-prescribed substance use: denies use service: No Exam Narrative: Exam Narrative: The emergency department was very busy today, so patient was here for approximately 2.5 hours before she was seen. From the nursing note patient was hyperventilating when she arrived. By the time I saw her she was calm and in no distress. Her respiratory rate was 18. Well-nourished well-developed patient in no acute distress. Alert and oriented x3. Answers questions appropriately. Mood and affect are appropriate. Thoughts are goal oriented and rational. No tangential or magical thinking noted. Patient speaks in full sentences without needing to catch her breath. HEENT: Normocephalic . Pupils are equally round reactive to light. Extraocular muscles are intact. Conjunctivae are moist without any icterus noted. Moist mucous membranes. Patient has a very small abrasion on the lower right chin. No trauma noted to the inside of the mouth. Cardiovascular: Heart is regular rate and rhythm. Lungs: Clear to auscultation bilaterally. Patient takes deep breaths without any discomfort. Back: Normal appearance. She has no tenderness to palpation over the cervical, thoracic or lumbar spine. She has no tenderness to manipulation of the pelvis. She has a normal gait. There is no bruising noted. No skin changes. She has full range of motion at the neck including flexion, extension, sideways bending and rotation without pain. Const: Vital Signs, click to edit/add: Vital Signs - 24 hr 02/12/24 11:57 Temperature 98.6 F Pulse Rate [Pulse Oximeter] 69 Respiratory Rate 28 H Blood Pressure [Ri ght Upper Arm] 139/84 Pulse Oximetry 100 Oxygen Delivery Me thod Room Air Course Vital Signs Vital signs: Initial Vital Signs Temperature 98.6 F 02/12/24 11:57 Temperature Source Temporal Artery Scan 02/12/24 11:57 Pulse Rate 69 02/12/24 11:57 Respiratory Rate 28 H 02/12/24 11:57 Blood Pressure 139/84 02/12/24 11:57 Blood Pressure Mean 102 02/12/24 11:57 Pulse Oximetry 100 02/12/24 11:57 Oxygen Delivery Method Room Air 02/12/24 11:57 Vital Signs Temperature 98.6 F 02/12/24 11:57 Pulse Rate 69 02/12/24 11:57 Respiratory Rate 28 H 02/12/24 11:57 Blood Pressure 139/84 02/12/24 11:57 Pulse Oximetry 100 02/12/24 11:57 Oxygen Delivery Method Room Air 02/12/24 11:57 Temperature 98.6 F 02/12/24 11:57 Pulse Rate 69 02/12/24 11:57 Respiratory Rate 28 H 02/12/24 11:57 Blood Pressure 139/84 02/12/24 11:57 Pulse Oximetry 100 02/12/24 11:57 Oxygen Delivery Method Room Air 02/12/24 11:57 Medical Decision Making MDM Narrative Medical decision making narrative: 73-year-old female status post fall with resulting low back pain likely musculoskeletal in nature. Given the fact that the patient has no point tenderness anywhere on palpation of the spine or pelvis, and she walks without difficulty, I do not think that we need to be concerned about a fracture at this time. And since the patient has no headache, altered mental status, confusion and is not anticoagulated- I do not think that imaging of the head or neck is necessary. We discussed symptomatic treatment reasons for follow-up. Discharge Plan Discharge Clinical Impression: Fall, Low back pain, Abrasion of face Patient Disposition: Home, Self-Care Condition: Stable Additional Instructions: Okay to alternate ice and heat to low back as needed, do not apply either ice or heat directly to the skin. Recommend daily gentle stretching. Prescriptions: No Action dulaglutide [Trulicity] subcut amlodipine PO glyburide PO metformin PO atorvastatin PO hydrochlorothiazide 50 mg tablet 50 mg PO DAILY levothyroxine 100 mcg tablet 100 mcg PO QAM cephalexin 500 mg capsule 500 mg PO 3XD glimepiride 4 mg tablet PO lisinopril 40 mg tablet 40 mg PO DAILY metformin 500 mg tablet extended release 24 hr 2,000 mg PO DAILY levetiracetam 1,000 mg tablet 1,000 mg PO BID diclofenac sodium 1 % gel 2 g topical QID Trulicity 3 mg/0.5 mL pen injector 3 mg subcut ketorolac 10 mg tablet 10 mg PO Q8H 5 Days Qty: 15 0RF amlodipine 5 mg tablet 5 mg PO DAILY pioglitazone 30 mg tablet 30 mg PO DAILY Follow Up/Referrals: Miles Deshpande MD [Primary Care Provider] - Stand Alone Forms: TaskEasy Info Instructions
--- OUTSIDE RECORDS SUMMARY | 2024-02-12 14:07 | XMS_ITS | Clinical Summary ---
Author Organization [facility] Address [place], [place] [address] Care Team Providers Care Medical Van Driver Name Role Phone Miles Deshpande MD Primary [...] per day. 100 Each 3 2 Active diclofenac topical (Voltaren) 1 % gelIndications:Arthr itis of carpometacarpal (CMC) joint of left thumb Apply 2 g topically to affected area(s) four times daily. 200 g 3 Active amLODIPine (NORVASC) 5 mg tabletIndications:Es [...] once daily. 90 Tablet 1 4 Active blood sugar diagnostic (Contour Next Test Strips) stripIndications:Con trolled type 2 diabetes mellitus with complication, without long-term current use of insulin (HC) TEST 1 TIME DAILY 100 Each 3 4 Active levETIRAcetam (KEPPRA) 1,000 mg tabletIndications:Se izure (HC) Take 1 Tablet (1,000 mg) by mouth two times daily. 180 Tablet 4 Active levETIRAcetam (KEPPRA) 1,000 mg tabletIndications:Se izure (HC) TAKE ONE TABLET (1000MG) BY MOUTH 2 TIMES DAILY 180 Tablet 2 01/26/20 24 Discontinu ed(Reorder (E-cancel not sent)) Active [...] Encounters Date Type Department Care Team Description 12/22/2023 Refill [facility] [address] [place] [address] Miles Deshpande MD Refill Request (Contour Next Test Strips) 12/03/[address] [facility] Scanner 1 scan: (1-Ord) [facility], ANGIO NECK, 12/03/2023 12/03/[address] [facility] Scanner 1 scan: (1-Ord) [facility], HEAD/BRAIN WO CON, 12/03/2023 11/20/2023 1:00 PM CDT Orders Only [facility] [address] [place] [address] [place], [place] 11/19/2023 2:55 PM CDT Office Visit [facility] [address] [place] [address] Miles Deshpande MD Diabetes (3 month follow up); Follow Up (Ongoing joint pain) 11/19/2023 Travel from Last 3 Months Immunizations Name Administration Dates Next Due Amb Influenza, Inactivated A IIV4 (Age 65+ Years) Preserv Free 04/02/2020 COVID-19 Vaccine Spikevax (M oderna 50mcg/0.5mL) 12YO+ [id number] Formula PF 04/04/2023 COVID-19 vaccine (Bethany-J& J) PF, MDV 08/31/2020 COVID-19 vaccine (Moderna 100mcg/0.5mL) PF, MDV 10/22/2021,04/24/2021 COVID-19 vaccine (Pfizer-Bio NTech 30mcg/0.3mL) 12YO+ BIVALENT PF, MDV 11/11/2022 DTaP 10/13/2011 Influenza Virus, Unspecified 03/12/2009 Influenza, High-dose Inactivated 03/13/2017,100 07/2015,03/26/2015 Influenza, High-dose Quadriv alent Inactivated 03/31/2022,03/27/2021 [...] st Contact Info) Description 05/27/2024 10:40 AM RADIO REPAIR TEACHER Ancillary Procedure [facility] [address] [facility] [address] 05/31/2024 1:00 PM RADIO REPAIR TEACHER Orders Only [facility] [address] [place] [address] [place] 05/31/2024 1:15 PM RADIO REPAIR TEACHER Office Visit [facility] [address] [facility] [address] Miles Deshpande MD [address] [facility] [address] Health Maintenance Due Date Last Done Comments COVID-19 vaccine series (2022- season) 2023 04/04/2023, 11/11/2022, 03/10/2022, Additional history exists BMI (ht and wt on same day) for age 18+ 11/12/2023 11/11/2022, 06/27/2022, 05/30/2022, Additional history exists Depression screening for age 12+ 11/12/2023 11/11/2022, 05/30/2022, 11/01/2020, Additional history exists Medicare Wellness for age 65+ 11/12/2023, 11/08/2021, 11/01/2020, Additional history exists Fecal testing non-DNA (FIT,FOBT,iFOBT) for age 45-75 02/11/2024 02/10/2023, 04/23/2021, 06/08/2020 (Completed outside of [facility]), Additional history exists Influenza for age 65+ [...] Procedure Name Priority Date/Time Associated Diagnosis Comments SCAN-ANGIOGRAM 12/03/2023 12:00 AM CDT SCAN-CT INTERPRETATION 4 12:00 AM CDT URINE ALBUMIN TO CREATININE RATIO, RANDOM Routine 11/20/2023 12:58 PM CDT Controlled type 2 diabetes mellitus with complication, without long-term current use of insulin (HC) HEPATIC FUNCTION PANEL Routine 2:16 PM CDT Controlled type 2 diabetes [...] Post-menopausal ANTI HCV Routine 07/10/2017 4:23 PM RADIO REPAIR TEACHER Need for hepatitis C screening test from Last 3 Months or Most Recently Relevant to Health Maintenance Results * SCAN-ANGIOGRAM (12/03/2023 12:00 AM CDT) Anatomical Region Laterality Modality Other Scanner OTHER * SCAN-CT INTERPRETATION (12/03/2023 12:00 AM CDT) Anatomical Region Laterality Modality Other Scanner OTHER * URINE ALBUMIN TO CREATININE RATIO, RANDOM (11/20/2023 12:58 PM CDT) ALB RAND URINE <12.0 mg/L 11/21/2023 3:58 AM CDT [facility] CREATININE,URINE 0.88 g/L 11/21/19 24 3:58 AM CDT [facility] ALBUMIN TO CREATININE RATIO,RAND UR 11/21/2023 3:58 AM CDT [facility] Comment:Urine Albumin below measurement range, unable to calculate. Urine URINE SPECIMEN / Unknown Non-Blood / Unknown 11/20/2023 12:58 PM CDT 11/20/2023 12:58 PM CDT Narrative [facility] - 11/21/2023 3:58 AM CDT If Albumin to Creatinine Ratio is elevated, consider the following: ? Elevations seen with incipient nephropathy associated ?? with diabetes mellitus or hypertension. Stress, exercise,hematuria, ?? and urinary tract infection may also produce elevated results. If clinically indicated, confirm with ?24 Hour Albumin to Creatinine Ratio. ?? Miles Deshpande MD URINE [facility] [address] [place] [address], [place] * TSH WITH REFLEX (11/19/2023 2:16 PM CDT) TSH 2.28 0.27 - 4.20 uIU/mL 11/19/2023 11:29 PM CDT [facility] Blood BLOOD SPECIMEN / Unknown Venipuncture / Unknown 11/19/2023 2:16 PM CDT 11/19/2023 2:17 PM CDT [facility] - 11/19/2023 11:29 PM CDT In Adults, TSH values between 5.00 and 10.00 uIU/ml do not necessarily indicate the presence of Hypothyroidism. Correlation with clinical findings such as presence of goiter and/or Thyroperoxidase (TPO) Antibody may be helpful. For more information please refer to NAUN 2004; 291: 228-238. Miles Deshpande MD CHEMISTRY [facility] [address] [place] [address], * LIPID PANEL W REFLEX MEASURED LDL (11/19/2023 2:16 PM CDT) CHOLESTEROL,TOTAL 102 100 - 199 mg/dL 11/19/2023 11:29 PM CDT [facility] Comment: Cholesterol, Total Reference Ranges Desirable <200 mg/dL Borderline 200-239 mg/dL High >=240 mg/dL TRIGLYCERIDES 99 <150 mg/dL 11/19/2023 11:29 PM CDT [facility] HDL CHOLESTEROL 49 >40 mg/dL 11:29 PM CDT [facility] NON-HDL CHOLESTEROL 53 <145 mg/dl 11/19/2023 11:29 PM CDT [facility] CHOL/HDL RATIO 2.08 <4.50 11/19/2023 11:29 PM CDT [facility] LDL CHOLESTEROL 33 <=130 mg/dL 11/19/2023 11:29 PM CDT [facility] VLDL CHOLESTEROL 20 <=30 mg/dL 11/19/2023 11:29 PM CDT [facility] PROVIDER ORDERED STATUS RANDOM 11/19/2023 11:29 PM CDT [facility] Blood BLOOD SPECIMEN / Unknown Venipuncture / Unknown 11/19/2023 2:16 PM CDT 11/19/2023 2:17 PM CDT Miles Deshpande MD CHEMISTRY Performing Organization Address [facility] Co de Phone Number [facility] [address] [place] [id number], * (ABNORMAL) HEMOGLOBIN A1C MONITORING (POCT) (11/19/2023 2:16 PM CDT) HEMOGLOBIN A1C MONITORING (POCT) 7.5(H) <=6.4 % 11/19/2023 2:26 PM CDT [facility] Blood BLOOD SPECIMEN / Unknown Venipuncture / Unknown 11/19/2023 2:16 PM CDT 11/19/2023 2:17 PM CDT Narrative [facility] - 11/19/2023 2:26 PM CDT ? (<=6.9%) [...] Anemias, Splenectomy ? Miles Deshpande MD CHEMISTRY Performing Organization Address [facility] Co de Phone Number [facility] [address] [place] [address], [place] [phone] * HEPATIC FUNCTION PANEL (11/19/2023 2:16 PM CDT) ALBUMIN 4.5 4.0 - 4.9 g/dL 11/19/2023 11:29 PM CDT [facility] PROTEIN,TOTAL 7.8 6.0 - 8.0 g/dL 11/19/2023 11:29 PM CDT [facility] BILIRUBIN,TOTAL 0.7 0.0 - 1.2 mg/dL 11/19/2023 11:29 PM CDT [facility] BILIRUBIN,DIRECT 0.2 0.0 - 0.3 mg/dL 11/19/2023 11:29 PM CDT [facility] BILIRUBIN,INDIRE CT 0.5 0.2 - 0.8 mg/dL 11/19/2023 11:29 PM CDT [facility] ALK PHOSPHATASE 70 35 - 104 IU/L 11/19/2023 11:29 PM CDT [facility] ALT (SGPT) 17 10 - 35 IU/L 11/19/2023 11:29 PM CDT [facility] AST (SGOT) 22 10 - 35 IU/L 11/19/2023 11:29 PM CDT [facility] Blood BLOOD SPECIMEN / Unknown Venipuncture / Unknown 11/19/2023 2:16 PM CDT 11/19/2023 2:17 PM CDT Miles Deshpande MD CHEMISTRY [facility] [address] [place] [address], * (ABNORMAL) BASIC METABOLIC PANEL (11/19/2023 2:16 PM CDT) SODIUM 139 136 - 145 mmol/L 11/19/2023 11:29 PM CDT [facility] POTASSIUM 4.3 3.5 - 5.1 mmol/L 11/19/2023 11:29 PM CDT [facility] CHLORIDE 100 98 - 107 mmol/L 11/19/2023 11:29 PM CDT [facility] CO2,TOTAL 26 22 - 29 mmol/L 11/19/2023 11:29 PM CDT [facility] ANION GAP 13 5 - 18 11/19/2023 11:29 PM CDT [facility] GLUCOSE 144(H) 70 - 99 mg/dL 11/19/2023 11:29 PM CDT [facility] CALCIUM 10.2 8.8 - 10.2 mg/dL 11/19/2023 11:29 PM CDT [facility] BUN 31(H) 8 - 23 mg/dL 11/19/2023 11:29 PM CDT [facility] CREATININE 1.11(H) 0.50 - 0.90 mg/dL 11/19/2023 11:29 PM CDT [facility] BUN/CREAT RATIO 28(H) 10 - 20 11:29 PM CDT [facility] eGFR 53(L) >90 mL/min/1.7 3m2 11/19/2023 11:29 PM CDT [facility] Comment:As of 2021, eG FR [...] 2:17 PM CDT Miles Deshpande MD [facility]STRY [facility] [address] [place] [address], [place] * XR MAMMO SHIVANI BILAT SCREEN (02/24/2023 [...] For Patients: As a result of the Cures Act, medical imaging exams and procedure reports are released immediately into your electronic medical record. You may view this report before your referring provider. If you have questions, please contact your health care provider. XR MAMMO SHIVANI BILAT SCREEN [[id number]] CLINICAL HISTORY: ??This is an asymptomatic 72 y.o. patient. INDICATION FOR EXAM: Mammogram Screening. TECHNIQUE: CC & MLO views were obtained. ??This study was evaluated with the assistance of Computer-Aided Detection. Breast Tomosynthesis was used in interpretation. COMPARISON FILM: Yes 12/30/21 [facility] [employer] 11/05/20 [facility] FINDINGS: ??The breasts have scattered areas of fibroglandular density. There are no dominant masses, suspicious micro calcifications or areas of architectural distortion. Miles Deshpande MD MAMMO * OCCULT BLOOD IFOBT STOOL (02/10/2023 11:49 AM CDT) STOOL BLOOD ,IFOBT Negative Negative 02/16/2023 12:31 PM CDT [facility] Stool STOOL SPECIMEN / Unknown Non-Blood / Unknown 02/10/2023 11:49 AM CDT 02/16/2023 11:49 AM CDT Miles Deshpande MD LABORATORY [facility] [address] [place] [address], * (ABNORMAL) XR DXA BONE DENSITY 2 [...] recommended in 3-5 years. Nicolasa Betancourt PA-C [facility] 11/06/2020 Narrative 11/06/2020 3:29 PM CDT XR DXA Bone Mineral Density (BMD) EXAM LOCATION: [facility] [address] [facility] [address] PATIENT NAME: Gracia Wyatt DATE OF : 1950 EXAM DATE: 11/05/2020 REQUESTING PROVIDER: Miles Deshpande MD GENDER AT : female HEIGHT: 5' 7.24 (11/01/2020) WEIGHT: ??218 lb 12.8 oz (11/01/2020) MENOPAUSAL STATUS: Postmenopausal RACE/ETHNICITY: White RISK FACTORS: No Risk Factors CURRENT MEDICATION FOR BONE LOSS: NONE INDICATION: Follow-up of existing osteopenia COMPARISON DATE(S): 2018 DXA scans are compared to prior studies for a patient only when the two (or more) studies were performed on the same scanner. It is not possible to compare data generated on one scanner to data from another because there are not standards in DXA equipment. This applies even if the two scanners are made by the same unix systems administrator. PROCEDURE: Dual-energy x-ray absorptiometry performed with routine [...] Miles Deshpande MD DEXA * ANTI HCV [[id number]] (07/10/2017 4:23 PM RADIO REPAIR TEACHER) HEPATITIS C ANTIBODY Non-Reacti ve Non-Reacti ve 07/10/2017 10:34 PM RADIO REPAIR TEACHER [facility] Blood BLOOD SPECIMEN / Unknown Venipuncture / Unknown 07/10/2017 4:23 PM RADIO REPAIR TEACHER 07/10/2017 4:23 PM RADIO REPAIR TEACHER Narrative [facility] - 07/10/2017 10:34 PM RADIO REPAIR TEACHER Antibodies to HCV not detected; does not exclude the possibility of exposure to HCV. Miles Deshpande MD SEND OUTS [facility] [address] [place] [address], from Last 3 Months or Most Recently Relevant to Health Maintenance Care Teams Medical Van Driver Relationship Specialty Start Date End Date Miles Deshpande MD [address] [place] [address] PCP - General Family Practice 11/27/17
== END 2024-02-12 14:20 | disposition home or self-care (01) ==
LOC: ED 14:06
PROVIDERS: Emergency Provider Family Medicine; PCP Family Medicine
DX: M54.9 Dorsalgia, unspecified (principal); S00.81XA Abrasion of other part of head, initial encounter; W19.XXXA Unspecified fall, initial encounter
CPT/HCPCS: 99283

== ENCOUNTER 2024-09-14 10:45 | Outpatient (RCR) | payer MEDICARE, SELFPAY | END 2025-01-12 23:59 | disposition home or self-care (01) | PROVIDERS: PCP Family Medicine; Visit Provider Orthopaedic Surgery | DX: M18.11 Unilateral primary osteoarthritis of first carpometacarpal joint, right hand (principal); R60.9 Edema, unspecified; Z51.89 Encounter for other specified aftercare | CPT/HCPCS: 97035; 97110; 97140; 97165; 97530; 97535; X5282 ==

== ENCOUNTER 2025-02-05 18:06 | Outpatient (CLI) | payer MEDICARE, SELFPAY | END 2025-02-05 18:07 | disposition home or self-care (01) | LOC: AMB 02-06 15:25 | PROVIDERS: PCP Family Medicine; Visit Provider Emergency Medicine | DX: S89.92XA Unspecified injury of left lower leg, initial encounter (principal); W01.0XXA Fall on same level from slipping, tripping and stumbling without subsequent striking against object, initial encounter; Y92.009 Unspecified place in unspecified non-institutional (private) residence as the place of occurrence of the external cause | CPT/HCPCS: A0425; A0433 ==

== ENCOUNTER 2025-02-05 19:05 | Inpatient (IN) | payer MEDICARE, SELFPAY ==
[2025-02-05] VITALS (10 sets, daily range): BP systolic 115–152; BP diastolic 61–75; PULSE 72–86; RESP 20; TEMP 36.2–37.1; O2SAT 74–100; BMI 32.9; BMI 34.4
--- OUTSIDE RECORDS SUMMARY | 2025-02-05 19:09 | XMS_ITS | Clinical Summary ---
Author Organization [employer] [employer] Address [address] [place] [address] Care Team Providers Care Rotor Winder Name Role Phone Miles Deshpande MD Primary Care Provider Carrie Jorge PharmD Unavailable [phone] Allergies Active Allergy Reactions Criticality Noted Date Comments Clindamycin *Unknown 07/10/2017 Niacin Rash 07/10/2017 Peanut *Unknown 07/10/2017 Patient reports nut allergy Penicillin G Hives 07/10/2017 Piroxicam *Unknown 07/10/2017 Shellfish Derived Rash 07/10/2017 Medications cetirizine (ZYRTEC) 10 mg tablet Take 1 tablet by mouth once daily. 0 018 Active cholecalciferol (VITAMIN D-3) 2,000 unit capsule Take 1 capsule by mouth once daily. 0 018 Active lancetsIndication s:Controlled type 2 diabetes mellitus with complication, without long-term current use of insulin (HC) Test 1 times per day. 100 Each 3 022 Active levETIRAcetam (KEPPRA) 1,000 mg tabletIndications :Seizure (HC) Take 1 Tablet (1,000 mg) by mouth two times daily. 60 Tablet 024 Active diclofenac topical (VOLTAREN) 1 % gelIndications:Ri ght wrist pain Apply 2 g topically to affected area(s) four times daily. 100 g 3 024 Active amLODIPine 5 mg tabletIndications :Essential hypertension Take 1 Tablet (5 mg) by mouth once daily. 90 Tablet 3 Active atorvastatin 20 mg tabletIndications :Hyperlipidemia, unspecified hyperlipidemia type Take 1 Tablet (20 mg) by mouth once daily. 90 Tablet Active dulaglutide (Trulicity) 3 mg/0.5 mL subcutaneous penIndications:Co ntrolled type 2 diabetes mellitus with complication, without long-term current use of insulin (HC) Inject 3 mg subcutaneous once weekly. 2 mL 5 Active glimepiride 4 mg tabletIndications :Controlled type 2 diabetes mellitus with complication, without long-term current use of insulin (HC) Take 2 Tablets (8 mg) by mouth once daily with a meal. 180 Tablet Active hydroCHLOROthiazi de 50 mg tabletIndications :Essential hypertension Take 1 Tablet (50 mg) by mouth once daily. 90 Tablet Active levothyroxine 100 mcg tabletIndications :Hypothyroidism (acquired) Take 1 Tablet (100 mcg) by mouth before breakfast. 90 Tablet Active lisinopriL 40 mg tabletIndications :Essential hypertension Take 1 Tablet (40 mg) by mouth once daily. 90 Tablet Active metFORMIN 500 mg Extended-Release tabletIndications :Controlled type 2 diabetes mellitus with complication, without long-term current use of insulin (HC) Take 4 Tablets (2,000 mg) by mouth once daily. 360 Tablet Active pioglitazone 30 mg tabletIndications :Controlled type 2 diabetes mellitus with complication, without long-term current use of insulin (HC) Take 1 Tablet (30 mg) by mouth once daily. 90 Tablet Active medication order Paul ns:Health care maintenance Vitamin C 500 mg once daily Calcium 1200 mg once daily Magnesium 400 mg once daily Cinnamon 1000 mg once daily Biotin 500 mcg once daily B12 500 mcg once daily Lutein-zeaxanti n 20-3.5 mg once daily MVI (Centrum silver 50+ Women's) once daily Flaxseed 1200 mg once daily Nervala once daily for neuropathy L-lysine 500 mg as needed for itching Melatonin 10 mg as needed for sleep Active triamcinolone 0.1% TOPICAL 0.1 % lotion Apply 0.1 g topically to affected area(s) one time if needed (As needed). 025 Active blood sugar diagnostic (Contour Next Test Strips) stripIndications: Controlled type 2 diabetes mellitus with complication, without long-term current use of insulin (HC) USE TO TEST ONCE DAILY. 100 Each 3 025 Active blood sugar diagnostic (Contour Next Test Strips) stripIndications: Controlled type 2 diabetes mellitus with complication, without long-term current use of insulin (HC) TEST 1 TIME DAILY 100 Each 3 024 2024 Discontinued Active Problems Problem Noted Date Diagnosed Date Malignant melanoma upper back 07/2024. 11/01/2024 Arthritis of carpometacarpal (CMC) joint of left [...] Encounters Date Type Department Care Team Description 01/09/2025 Refill [facility] [address] [place] [address] Miles Deshpande MD Refill Request (Contour Next Test Strips) 2024 3:15 PM CDT Office Visit [facility] [address] [place] [address] Flip Ontiveros DPM Follow Up (Right foot calluses) 2024 Travel 11/29/2024 2:30 PM CDT Pharmacist Medication Management [facility] [address] [place] [address] Carrie Jorge PharmD Pharmacist Medication Management (CMR initial - insurance referral - in-clinic visit) 11/29/2024 Travel from Last 3 Months Immunizations Immunization Administration Dates Next Due Amb Influenza, Inactivated A IIV4 (Age 65+ Years) Preserv Free 04/02/2020 COVID-19 VACCINE SPIKEVAX (M ODERNA 50MCG/0.5ML) 12YO+ PFS 04/04/2023 COVID-19 vaccine (Bethany-J&J) PF, MDV COVID-19 vaccine (Moderna 100mcg/0.5mL) PF, MDV 10/22/2021,04/24/2021 COVID-19 vaccine (Pfizer-Bio NTech 30mcg/0.3mL) 12YO+ BIVALENT PF, MDV 11/11/2022 DTaP 10/13/2011 Influenza Virus, Unspecified 03/12/2009 Influenza, High-dose Inactivated 024,03/13/2017,03/23/2016,03/26 Influenza, High-dose Quadriv alent Inactivated 03/31/2022,03/27/2021 Influenza, IIV3 (Age >=3 years) 04/25/20 14,03/30/2013,04/01/2012,04/22,06/02/2008,04/23/2007,03/26/2006 Influenza, IIV4 03/13/2017 Influenza, Inactivated AIIV4 (Age 65+ Years) Preserv Free 04/04/2023 Influenza, Inactivated IIV3 (Age 65+ Years) Preserv Free 04/06/2019,04/19/2018 Pneumococcal Conj 20-valent (Prevnar 20) 05/31/2024 Pneumococcal Poly,23-Valent (Pneumovax) 05/24/2018 Pneumococcal conj 13-Valent (Prevnar 13) 03/26/2015,05/30/2014 RSV, Recombinant ADJ Reconst ituted (Arexvy 120MCG/0.5mL) 03/01/2024 Tdap 04/19/2018 Zoster (Shingrix-RZV, recombinant) 01/13/2019, Zoster [...] PHQ-2 Answer Date Recorded PHQ-2 TOTAL SCORE 2 11/01/2024 Social Connections Answer Date Recorded Do you often feel lonely or isolated from those around you? 0 05/31/2024 Financial Resource Strain Answer Date R ecorded Difficulty of Paying Living Expenses 3 05/31/2024 Difficulty of Paying Living Expenses Not on file 05/31/2024 Food Insecurity Answer Date Recorded Do you worry your food will run out before you are able to buy more? 1 05/31/2024 Transportation Needs Answer Date Record ed Does lack of transportation keep you from medica l appointments? 1 05/31/2024 Does lack of transportation keep you from work, meetings or getting things that you need? 1 05/31/2024 Housing Stability Answer Date Recorded What is your housing situation today? 1 05/31/2024 Utilities Answer Date Recorded Do you have trouble paying f or utilities (for example, heat, electricity, water, phone)? 1 05/31/2024 Comments No Sex and Gender Information Value Date Recorded Sex Assigned at Not on file Legal Sex Female 11:00 AM HEALTH SCIENCE SPECIALIST Gender Identity Not on file Sexual Orientation Not on file Obstetrics History Last Filed Vital Signs Vital Sign Reading Time Taken Comments Blood Pressure 127/77 2024 3:18 PM CDT Pulse 62 2024 3:18 PM CDT Temperature 36.9 C (98.4 F) 11/17/2019 8:56 AM CDT Respiratory Rate - - Oxygen Saturation 99% 2024 3:18 PM CDT Inhaled Oxygen Concentration - - Weight 93.9 kg (207 lb) 2024 3:18 PM CDT Height 167.6 cm (5' 6) 11/01/2024 1:10 PM CDT Body Mass Index 33.41 11/01/2024 1:10 PM CDT Plan of Treatment Health Maintenance Due Date Last Done Comments COVID-19 vaccine series ( season) 2024 03/01/2024, 04/04/2023, 11/11/2022, Additional history exists Influenza Vaccine (#1) 2025 4, 04/04/2023, 04/02/2020, Additional history exists Fecal testing non-DNA (FIT,FOBT,iFOBT) for age 45-75 10/20/2025 10/20/2024, 02/10/2023, 04/23/2021, Additional history exists BMI (ht and wt on same day) for age 18+ 11/01/2025 11/01/2024, 11/11/2022, 06/27/2022, Additional history exists Depression screening for age 12+ 11/01/2025 11/01/2024, 11/11/2022, 05/30/2022, Additional history exists Medicare Wellness for age 65+ 11/02/2025 11/01/2024, 11/11/2022, 11/08/2021, Additional history exists Tetanus booster 04/19/2028 04/19/2018 Lipids for age 45-75 10/27/2029 10/27/2024, 11/19/2023, 11/06/2022, Additional history exists Hepatitis C screening for age 18-79 Completed 07/10/2017 Zoster (shingles) series for age 50+ Completed 01/13/2019, 09/11/2018, 04/01/2012 DEXA/DXA scan for age 65+ Completed 11/05/2020, RSV vaccine for adults or Completed 03/01/2024 Pneumococcal series for age 50+ Completed 05/31/2024, 05/24/2018, 03/26/2015, Additional history exists Hepatitis B series for 19+ Aged Out N o longer eligible based on patient's age to complete this topic Procedures Procedure Name Priority Date/Time Associated Diagnosis Comments LIPID PANEL W REFLEX MEASURED LDL Routine 10/27/2024 11:37 AM CDT Controlled type 2 diabetes mellitus with complication, without long-term current use of insulin (HC) OCCULT BLOOD IFOBT STOOL Routine 10/20/2024 3:58 PM CDT Screening for colorectal cancer XR DXA BONE DENSITY 2 SITES AXIAL Routine 11/05/2020 11:00 AM CDT Post-menopausal ANTI HCV Routine 07/10/2017 4:23 PM HEALTH SCIENCE SPECIALIST Need for hepatitis C screening test from Last 3 Months or Most Recently Relevant to Health Maintenance Results * (ABNORMAL) LIPID PANEL W REFLEX MEASURED LDL (10/27/2024 11:37 AM CDT) CHOLESTEROL, TOTAL 89 <200 mg/dL [facility] HDL CHOLESTEROL 43(L) > OR = 50 mg/dL [facility] TRIGLYCERIDES 71 <150 mg/dL [facility] LDL-CHOLESTEROL 31 mg/dL (calc) [facility] Comment: Reference range: <100 Desirable range <100 mg/dL for primary prevention; <70 mg/dL for patients with CHD or diabetic patients with > or = 2 CHD risk factors. LDL-C is now calculated using the Kevin calculation, which is a validated novel method providing better accuracy than the Friedewald equation in the estimation of LDL-C. Willian SS et al. NAUN. 2013;310(19): 2571-9025 (http://education.MOD Systems/faq/YEA684) CHOL/HDLC RATIO 2.1 <5.0 (calc) [facility] NON HDL CHOLESTEROL 46 <130 mg/dL (calc) [facility] Comment: For patients with diabetes plus 1 major ASCVD risk factor, treating to a non-HDL-C goal of <100 mg/dL (LDL-C of <70 mg/dL) is considered a therapeutic option. Blood BLOOD SPECIMEN / Unknown 10/27/2024 11:37 AM CDT 10/27/2024 11:37 AM CDT us Miles Deshpande MD CHEMISTRY Final Result [facility] [address] [place] [address], [facility] [address] [place] [address] * OCCULT BLOOD IFOBT STOOL (10/20/2024 3:58 PM CDT) STOOL BLOOD ,IFOBT Negative Negative 10/28/2024 7:51 PM CDT [facility] Stool STOOL SPECIMEN / Unknown Non-Blood / Unknown 10/20/2024 3:58 PM CDT 10/28/2024 3:58 PM CDT Miles Deshpande MD LABORATORY Final Result [facility] [address] [place] [address], * (ABNORMAL) XR DXA BONE DENSITY 2 [...] recommended in 3-5 years. Nicolasa Betancourt PA-C [facility] 11/06/2020 Narrative 11/06/2020 3:29 PM CDT XR DXA Bone Mineral Density (BMD) EXAM LOCATION: [address] [address] PATIENT NAME: Gracia Wyatt DATE OF : 1950 EXAM DATE: 11/05/2020 REQUESTING PROVIDER: Miles Deshpande MD GENDER AT : female HEIGHT: 5' 7.24 (11/01/2020) WEIGHT: 218 lb 12.8 oz (11/01/2020) MENOPAUSAL STATUS: Postmenopausal [...] two scanners are made by the same dental service technician. PROCEDURE: Dual-energy x-ray absorptiometry performed with routine [...] + 1.4 Comparison to most recent scan in 2018: Decrease -1.2%. RESULT FEMORAL NECK Left Total Femoral Neck BMD: 0.833 g/cm2 T-Score: - 1.5 Z-Score: - 0.5 RESULT TOTAL HIP Bilateral Total Hip BMD: 0.861 g/cm2 T-Score: - 1.2 Z-Score: - 0.5 Comparison to most recent scan in 2018: Decrease -1.5%. WHO criteria: Normal: T-score at or above -1 SD Osteopenia: T-score between -1.1 and -2.4 SD Osteoporosis: T-score at or below -2.5 SD FRAX RISK CALCULATION (USED FOR OSTEOPENIA ONLY): 10-year probability of major osteoporotic fracture: 9.4%. 10-year probability of hip fracture: 1.3%. Miles Deshpande MD DEXA Final Result * ANTI HCV [81128.2] (07/10/2017 4:23 PM HEALTH SCIENCE SPECIALIST) HEPATITIS C ANTIBODY Non-Reacti ve Non-Reacti ve 07/10/2017 10:34 PM HEALTH SCIENCE SPECIALIST [facility] Blood BLOOD SPECIMEN / Unknown Venipuncture / Unknown 07/10/2017 4:23 PM HEALTH SCIENCE SPECIALIST 07/10/2017 4:23 PM HEALTH SCIENCE SPECIALIST Narrative [facility] - 07/10/2017 10:34 PM HEALTH SCIENCE SPECIALIST Antibodies to HCV not detected; does not exclude the possibility of exposure to HCV. us Miles Deshpande MD SEND OUTS Final Result [facility] [address] [place] [address], [place] from Last 3 Months or Most Recently Relevant to Health Maintenance Insurance [employer]AGE MR Care Teams Rotor Winder Relationship Specialty Start Date End Date Miles Deshpande MD [address] [place] [address] PCP - General Family Practice 05/18/17 Carrie Jorge, [address] [place] [address] Pharmacist Medication Management Pharmacology 11/29/24 11/30/27
--- NOTE | 2025-02-05 19:15 | CRLHL7_ITS ---
For Patients: As a result of the Cures Act, medical imaging exams and procedure reports are released immediately into your electronic medical record. You may view this report before your referring provider. If you have questions, please contact your health care provider. INDICATION: Fall, injury today, knee pain, crepitus TECHNIQUE: Knee radiograph 2 views left COMPARISON: None FINDINGS: Bone: No acute fractures or aggressive bone lesions are identified. Moderate diffuse osteopenia is noted. Joint: Mild osteoarthritis noted in the medial, lateral, and patellofemoral compartments. No significant knee effusion is seen. Soft tissue: Unremarkable. No radiopaque foreign bodies are seen. IMPRESSION: 1. No acute osseous injuries or abnormalities are noted. Dictated by: Chester Rice MD @ 02/05/2025 20:24:28 (Electronically Signed)
--- NOTE | 2025-02-05 19:16 | CRLHL7_ITS ---
For Patients: As a result of the Century Cures Act, medical imaging exams and procedure reports are released immediately into your electronic medical record. You may view this report before your referring provider. If you have questions, please contact your health care provider. INDICATION: Fall, injury today, ankle pain TECHNIQUE: Ankle radiograph 3 views right COMPARISON: None FINDINGS: Bone: There is a 3.5 mm ossific density along the medial hindfoot. Pes planus is suspected and can be confirmed by weightbearing views. There is a small plantar calcaneal spur and a small posterosuperior enthesophyte present. Moderate diffuse osteopenia is present. Joint: The ankle mortise joint and the visualized hindfoot joints are unremarkable in appearance. No significant ankle effusion is seen. Soft tissue: Diffuse swelling and subcutaneous edema is noted. No radiopaque foreign bodies are seen. IMPRESSION: 1. There is a 3.5 mm ossific density along the medial hindfoot. Correlation with physical exam for focal tenderness in this region is recommended to exclude an avulsion fracture fragment. Dictated by Chester Rice MD @ 02/05/2025 8:26:10 PM Dictated by: Chester Rice MD @ 02/05/2025 20:26:13 (Electronically Signed)
--- NOTE | 2025-02-05 19:16 | CRLHL7_ITS ---
For Patients: As a result of the Century Cures Act, medical imaging exams and procedure reports are released immediately into your electronic medical record. You may view this report before your referring provider. If you have questions, please contact your health care provider. INDICATION: Fall, injury today, ankle pain TECHNIQUE: Ankle radiograph 3 views left COMPARISON: None FINDINGS: Bone: No acute fractures or aggressive bone lesions are identified. There is a small plantar calcaneal spur and a moderate posterosuperior enthesophyte present. Joint: The ankle mortise joint and the visualized hindfoot joints are unremarkable in appearance. No significant ankle effusion is seen. Soft tissue: Swelling and diffuse subcutaneous edema is present. No radiopaque foreign bodies are seen. IMPRESSION: 1. No acute osseous injuries or abnormalities are noted. Dictated by Chester Rice MD @ 02/05/2025 8:24:59 PM Dictated by: Chester Rice MD @ 02/05/2025 20:25:03 (Electronically Signed)
--- NOTE | 2025-02-05 19:17 | CRLHL7_ITS ---
For Patients: As a result of the 21st Century Cures Act, medical imaging exams and procedure reports are released immediately into your electronic medical record. You may view this report before your referring provider. If you have questions, please contact your health care provider. INDICATION: fall, rib, back, pelvic, L hip pain. TECHNIQUE: CT chest, abdomen and pelvis acquired with 100 cc of Omnipaque 350 IV contrast. COMPARISON: None. FINDINGS: CHEST: Cardiovascular structures: Heart size is normal. Thoracic aorta and main pulmonary artery are normal in caliber. Mediastinum and lily: No mass or adenopathy. Lungs and pleura: Lungs and pleural spaces are clear. No suspicious nodules, infiltrates, or effusions. Chest wall and axilla: No mass or adenopathy. Bones: Mild chronic-appearing T12 compression fracture. ABDOMEN AND PELVIS: Liver: 1.7 cm macroscopic fat-containing mass within the inferior right hepatic lobe, likely a angiomyolipoma. No sign of acute injury. Gallbladder and bile ducts: Unremarkable. Pancreas: Unremarkable. Spleen: Calcified granuloma. No sign of acute injury. Adrenal glands: Unremarkable. Kidneys: Heterogeneous 5.1 x 5.5 x 4.6 cm soft tissue mass within the right kidney. No hydronephrosis or stone identified. GI tract: Small hiatal hernia. Few scattered colonic diverticula. No pericolonic inflammation. No bowel obstruction. No evidence for appendicitis. Vascular structures: Normal caliber abdominal aorta with mild atherosclerotic calcification. Mesenteric arteries are patent. Lymph nodes: Unremarkable. Miscellaneous: Unremarkable. No free air or significant free fluid. Pelvic Organs: Unremarkable. Bones: Acute, nondisplaced, mildly impacted left femoral neck fracture. Multilevel degenerative changes of the spine. IMPRESSION: 1. Acute, nondisplaced mildly impacted left femoral neck fracture. 2. 5.5 cm heterogeneous soft tissue mass within the right kidney, suspicious for renal cell carcinoma. 3. 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 3. No acute findings within the chest. Please note that all CT scans at this facility use dose modulation, iterative reconstruction, and/or weight-based dosing when appropriate to reduce radiation dose to as low as reasonably achievable. Dictated by Aaron eLe MD @ 02/05/2025 8:59:47 PM (Electronically Signed)
[2025-02-05] MEDS: ONDANSETRON 2 MG/ML inj 4 MG IVP (19:25)
[2025-02-05 19:39] LABS: Hematocrit 32.2 % (33.0-51.0); Hemoglobin* 10.6 gm/dL (12.0-16.0); Immature Granulocytes Abs Auto 0.02 K/uL (0.00-0.30); Immature Granulocytes Pct Auto 0.3 %; Lymphocytes Absolute Auto 1.57 K/uL (0.90-2.90); Mean Corpuscular HGB Conc 33 gm/dL (32-36); Mean Corpuscular Hemoglobin 30 pg (26-34); Mean Corpuscular Volume 91 fL (80-100); RDW Coefficient of Variation % 13.9 % (11.5-15.5); Red Blood Count 3.54 m/uL (4.00-5.20); White Blood Count* 6.51 K/uL (4.50-11.00)
[2025-02-05 19:40] LABS: Slide Review Reflex No
[2025-02-05 19:41] LABS: Creatinine, Point-of-Care* 1.3 mg/dl (0.6-1.3)
[2025-02-05 19:56] LABS: Chloride* 105 mmol/L (96-114); Potassium* 3.8 mmol/L (3.6-5.1); Sodium* 137 mmol/L (135-149)
[2025-02-05 19:58] LABS: INR 0.98 (0.91-1.10); Prothrombin Time 13.8 Seconds
[2025-02-05 19:59] LABS: Anion Gap 8 mEq/L (7-15); Blood Urea Nitrogen* 40 mg/dL (7-30); Calcium* 9.5 mg/dL (8.4-10.6); Carbon Dioxide* 24 mmol/L (20-32); Creatinine* 1.1 mg/dL (0.5-1.5); Est. Creatinine Clearance* 41.37; Estimated Glomerular Filt Rate 52 ml/min; Glucose* 136 mg/dL (60-115)
[2025-02-05] MEDS: 0.9 % SODIUM CHLORIDE 500 ML 500 ML IV (20:08)
[2025-02-05] MEDS: METOCLOPRAMIDE HCL 5 MG/ML INJ 10 MG IVP (20:08)
--- NOTE | 2025-02-05 20:23 | ED.GENADULT ---
HPI - General Adult General Date Seen: 02/05/25 Chief complaint: Fall/Minor Trauma Stated complaint: Fall Time Seen by Provider: 02/05/25 19:08 History of Present Illness HPI narrative: 74-year-old female brought to the ER today from her home by EMS for evaluation of injuries after a ground level fall. History from the patient is that she was busy helping her today who I saw has suffered from a stroke and requires a lot of care. She was in the kitchen today and had brought up his dirty dishes after lunch and was getting out some moles from the kitchen. She describes turning in the kitchen and then feeling her left knee twist and then falling to the floor. She fell to the floor and landed somewhat on her right side and does have pain in her right ankle. However she has fairly severe pain in her left knee, less severe pain in her left hip, and some pain in her left ankle. She is pretty confident she did not hit her head. She does not have a headache. She denies any neck pain. No injury to her arms other than perhaps mild pain in her left wrist. She does have trouble with chronic low back pain dating back to a fall last January. Her chronic back pain is flaring up today. No new back pain. No numbness or weakness in her legs. EMS reports that she was in exquisite pain at home. They administered a total of to 150 mg of fentanyl and 2 mg of Versed for pain control. They did a wrap and pillow padding on her low left knee because it was painful. They were concerned for possible knee fracture because they were feeling crepitus with any movement of her left knee. They report she did not hit her head. She is not in C-spine precautions. Related Data Home Medications ?Medication ?Instructions ?Recorded ?Confirmed amlodipine PO 03/21/22 03/21/22 atorvastatin PO 03/21/22 03/21/22 dulaglutide [Trulicity] subcut 03/21/22 03/21/22 glyburide PO 03/21/22 03/21/22 metformin PO 03/21/22 03/21/22 cephalexin 500 mg capsule 500 mg PO 3XD 01/29/23 01/29/23 diclofenac sodium 1 % topical gel 2 g topical QID 01/29/23 01/29/23 dulaglutide 3 mg/0.5 mL 3 mg subcut 01/29/23 subcutaneous pen injector (Trulicity) glimepiride 4 mg tablet mg PO 01/29/23 hydrochlorothiazide 50 mg tablet 50 mg PO DAILY 01/29/23 02/12/24 levetiracetam 1,000 mg tablet 1,000 mg PO BID 01/29/23 02/12/24 levothyroxine 100 mcg tablet 100 mcg PO QAM 01/29/23 02/12/24 lisinopril 40 mg tablet 40 mg PO DAILY 01/29/23 02/12/24 metformin 500 mg tablet,extended 2,000 mg PO DAILY 01/29/23 02/12/24 release 24 hr amlodipine 5 mg tablet 5 mg PO DAILY 02/12/24 02/12/24 pioglitazone 30 mg tablet 30 mg PO DAILY 02/12/24 02/12/24 Previous Rx's ?Medication ?Instructions ?Recorded ketorolac 10 mg tablet 10 mg PO Q8H 5 days #15 tabs 01/29/23 Allergies Allergy/AdvReac Type Severity Reaction Status Date / Time niacin AdvReac Mild Rash Verified 12/03/23 06:06 clindamycin AdvReac Unknown Verified 12/03/23 06:06 piroxicam AdvReac Unknown Verified 12/03/23 06:06 penicillin G AdvReac Hives Verified 12/03/23 06:06 nuts Allergy Severe swelling Uncoded 12/03/23 06:06 shellfish Allergy Severe swelling Uncoded 12/03/23 06:06 seafood Allergy Intermediate blood Uncoded 12/03/23 06:06 blisters PFSH PFSH Medical History Health care directive on file ?Z78.9 - Other specified health status (ICD-10) Social History Smoking Status: Never smoker Do you use any of these nicotine containing products: None Second hand tobacco smoke exposure: No How often do you have a drink containing alcohol: monthly or less How often do you have six or more drinks on one occasion: Never AUDIT-C Alcohol total score: 1 Non-prescribed substance use: denies use service: No Exam Narrative: Exam Narrative: Primary Survey: A- patent. Speaking clearly. Phonation normal. No stridor. B- breathing easily. Lung sounds clear and equal. Oxygen saturation normal on room air C- no active bleeding. Blood pressure stable. Symmetric pulses and cap refill in 4 extremities. D- alert and oriented x3. GCS 15. No focal deficits. Nauseous shortly after arrival and had a nonbloody emesis. Constitutional: Appears well-developed and well-nourished. Alert. Conversant. Non toxic. HENT: Head: Atraumatic. No depressed skull fracture, Raccoon Eyes, Saini's sign. Face normal. Nose: Nose normal. Mouth/Throat: Oral mucosa is clear and moist. no trismus. Pharynx normal. Tonsils symmetric. No tonsillar enlargement, erythema, or exudate. Eyes: Conjunctivae normal. EOM normal. Pupils equal, round, and reactive to light. No scleral icterus. Neck: Normal range of motion. Neck supple. No tracheal deviation present. No posterior midline tenderness. Cardiovascular: Normal rate, regular rhythm. No gallop. No friction rub. No murmur heard. Symmetric DP artery pulses Pulmonary/Chest: Effort normal. No stridor. No respiratory distress. No wheezes. No rales. No rhonchi . No tenderness. Abdominal: Soft. Bowel sounds normal. No distension. No mass. No tenderness. No rebound. No guarding. Musculoskeletal: No tenderness over this C or T-spine. She does have tenderness across the posterior lumbar spine including the midline. No definite step-off. Pelvis is stable. She does have left anterior superior iliac spine and left groin tenderness. No crepitus in the pelvis. RUE: Normal range of motion. No tenderness. No deformity LUE: Normal range of motion. No tenderness. No deformity. Mild tenderness without deformity or crepitus in her left wrist. normal range of motion in her left wrist She is lying in the right lateral decubitus position because she is having too much pain in her left leg in particular her left knee and left hip to move flat onto the bed. RLE: Normal range of motion. No edema. No hip, femur, knee, or tibia tenderness. No deformity tenderness over the lateral malleolus. LLE: Range of motion testing is limited by pain in her left leg. Pain seems to be predominantly in the lateral left knee but also some pain in the hip and pelvis. No femoral shaft tenderness or deformity. She does have marked tenderness on the lateral left knee including the distal femur, proximal fibula, and anterolateral tibia. No definite bruising. EMS reported crepitus. I am only able to move her knee a few degrees from from full extension to about 20? of flexion. No obvious crepitus during that short range of motion. Ligamentous exam limited by pain. She does have mild tenderness over the proximal fibula. Proximal tibia nontender. Mild tenderness over the lateral malleolus. Neurological: Alert and oriented to person, place, and time. Normal strength. CN II-VII intact. No sensory deficit. GCS eye subscore is 4. GCS verbal subscore is 5. GCS motor subscore is 6. Normal coordination Skin: Skin is warm and dry. No rash noted. No pallor. Normal capillary refill. Psychiatric: Normal mood. Polite. Uncomfortable and nauseous. Const: Vital Signs, click to edit/add: Vital Signs - 24 hr 02/05/25 19:23 02/05/25 20:10 02/05/25 20:16 Temperature 97.2 F L Pulse Rate [Left P ulse Oximeter] 72 Respiratory Rate 20 Blood Pressure [Le ft Upper Arm] 116/73 Pulse Oximetry 98 74 L 100 Oxygen Delivery Me thod Room Air Room Air Nasal Cannula Oxygen Flow Rate 4 Course Course ED Course: Recheck-having more nausea. Zofran ordered. Recheck-still nauseous. Reglan ordered. Recheck now developing hypoxia likely from the opiates and benzos given for her. Placed on oxygen. Recheck-from imaging. I reviewed her x-rays and CTs. I am concerned about a left femoral neck fracture. X-rays of her knee showed no obvious fracture. X-rays of her ankle show no obvious fractures. Laboratory workup shows normal CBC safe for anemia with hemoglobin at 10.6. This is down by about 2 g compared to her baseline from summer 2023. No recent baselines for comparison. Metabolic profile showed elevated BUN and creatinine of 1.1. Likely due to pre renal. INR is normal at 0.98. She denies any recent black or bloody stools. Recheck-repeat exam. Much more comfortable now. Daughter at bedside. I am able to review at her left leg. She is moving her ankle normally on both the left and right leg. No tenderness over the lower leg or tibia or fibula. Minimal tenderness over the knee. Range of motion the knee is limited but she says really when she tries to range her knee the pain localizes all to her left hip. She does have left hip tenderness. This would correlate with CT demonstrated left femoral neck fracture Discussed with on-call orthopedic PA, Gurpreet riley. He requests that we get dedicated plain film AP and lateral so the patient's left hip. He will call back after this images are done. Discussed with my partner Dr. Reyes at 9:00 p.m.. He will follow-up for conversation with the orthopedic PA and help determine ultimate disposition. I have confirmed with greenhouse manager that we do have an open medical bed for this patient. We anticipate she will require admission for pain control and orthopedic evaluation of a impacted left femoral neck fracture. Please see Dr. Patino' note for full details. Vital Signs Vital signs: Initial Vital Signs Temperature 97.2 F L 02/05/25 19:23 Temperature Source Temporal Artery Scan 02/05/25 19:23 Pulse Rate 72 02/05/25 19:23 Respiratory Rate 20 02/05/25 19:23 Blood Pressure 116/73 02/05/25 19:23 Blood Pressure Mean 87 02/05/25 19:23 Blood Pressure Position Right Lateral 02/05/25 19:23 Pulse Oximetry 98 02/05/25 19:23 Oxygen Delivery Method Room Air 02/05/25 19:23 Vital Signs Temperature 97.2 F L 02/05/25 19:23 Pulse Rate 72 02/05/25 19:23 Respiratory Rate 20 02/05/25 19:23 Blood Pressure 116/73 02/05/25 19:23 Pulse Oximetry 98 02/05/25 19:23 Oxygen Delivery Method Room Air 02/05/25 19:23 Temperature 97.2 F L 02/05/25 19:23 Pulse Rate 72 02/05/25 19:23 Respiratory Rate 20 02/05/25 19:23 Blood Pressure 116/73 02/05/25 19:23 Pulse Oximetry 100 02/05/25 20:16 Oxygen Delivery Method Nasal Cannula 02/05/25 20:16 Oxygen Flow Rate 4 02/05/25 20:16 Medications Administered Medications: Discontinued Medications Generic Name Dose Route Start Last Admin Trade Name Freq PRN Reason Stop Dose Admin Sodium Chloride 500 mls @ 500 mls/hr 02/05/25 19:27 02/05/25 20:08 0.9 % Sodium Chloride 500 Ml IV 02/05/25 20:26 500 mls/hr .Q1H SHRADDHA Administration Metoclopramide HCl 10 mg 02/05/25 19:59 02/05/25 20:08 Metoclopramide Hcl 5 Mg/Ml Inj IVP 02/05/25 20:00 10 mg ONCE ONE Administration Ondansetron HCl 4 mg 02/05/25 19:15 02/05/25 19:25 Ondansetron 2 Mg/Ml Inj IVP 02/05/25 19:16 4 mg ONCE ONE Administration Medical Decision Making Lab Data Labs: Lab Results 02/05/25 02/05/25 Range/Units 19:34 19:39 WBC 6.51 (4.50-11.00) K/uL RBC 3.54 L (4.00-5.20) m/uL Hgb 10.6 L (12.0-16.0) gm/dL Hct 32.2 L (33.0-51.0) % MCV 91 (80-100) fL MCH 30 (26-34) pg MCHC 33 (32-36) gm/dL RDW Coeff of Rossi 13.9 (11.5-15.5) % Plt Count 234 (140-440) K/uL Neut % (Auto) 67.2 (42.0-72.0) % Lymph % (Auto) 24.1 (20-44) % [place] % (Auto) 6.5 (0.0-11.0) % Eos % (Auto) 1.7 (0.0-7.0) % Baso % (Auto) 0.2 (0.0-3.0) % Neut # (Auto) 4.38 (1.7-7.0) K/uL Lymph # (Auto) 1.57 (0.90-2.90) K/uL [place] # (Auto) 0.40 (0.00-0.90) K/UL Eos # (Auto) 0.11 (0.00-0.50) K/uL Baso # (Auto) 0.01 (0.00-0.30) K/uL Abs Immat Gran (auto) 0.02 (0.00-0.30) K/uL Imm/Tot Granulo (auto) 0.3 % INR 0.98 (0.91-1.10) Sodium 137 (135-149) mmol/L Potassium 3.8 (3.6-5.1) mmol/L Chloride 105 (96-114) mmol/L Carbon Dioxide 24 (20-32) mmol/L Anion Gap 8 (7-15) mEq/L BUN 40 H (7-30) mg/dL Creatinine 1.1 (0.5-1.5) mg/dL Estimated Creat Clear 41.37 Estimated GFR 52 ml/min Glucose 136 H (60-115) mg/dL Calcium 9.5 (8.4-10.6) mg/dL POC Creatinine 1.3 (0.6-1.3) mg/dl Imaging Data XR knee left: Attestation: I have reviewed the pertinent imaging results. My impression: No acute fracture Radiologist's impression: IMPRESSION: 1. No acute osseous injuries or abnormalities are noted. XR ankle right: Attestation: I have reviewed the pertinent imaging results. My impression: No acute fracture Radiologist's impression: IMPRESSION: 1. There is a 3.5 mm ossific density along the medial hindfoot. Correlation with physical exam for focal tenderness in this region is recommended to exclude an avulsion fracture fragment. XR ankle left: Attestation: I have reviewed the pertinent imaging results. My impression: No acute fracture Radiologist's impression: IMPRESSION: 1. No acute osseous injuries or abnormalities are noted. CT scan - pelvis: My impression: Probable left femoral neck fracture Discharge Plan Discharge Clinical Impression: Closed fracture of neck of left femur Prescriptions: No Action dulaglutide [Trulicity] subcut amlodipine PO glyburide PO metformin PO atorvastatin PO hydrochlorothiazide 50 mg tablet 50 mg PO DAILY levothyroxine 100 mcg tablet 100 mcg PO QAM cephalexin 500 mg capsule 500 mg PO 3XD glimepiride 4 mg tablet PO lisinopril 40 mg tablet 40 mg PO DAILY metformin 500 mg tablet extended release 24 hr 2,000 mg PO DAILY levetiracetam 1,000 mg tablet 1,000 mg PO BID diclofenac sodium 1 % gel 2 g topical QID Trulicity 3 mg/0.5 mL pen injector 3 mg subcut ketorolac 10 mg tablet 10 mg PO Q8H 5 Days Qty: 15 0RF amlodipine 5 mg tablet 5 mg PO DAILY pioglitazone 30 mg tablet 30 mg PO DAILY Follow Up/Referrals: Miles Deshpande MD [Primary Care Provider, Family Practice]
--- NOTE | 2025-02-05 20:54 | CRLHL7_ITS ---
For Patients: As a result of the Cures Act, medical imaging exams and procedure reports are released immediately into your electronic medical record. You may view this report before your referring provider. If you have questions, please contact your health care provider. Indication: Fall, left hip fracture Technique: Frontal view of the pelvis and two views of the left hip Comparison: Same day CT Findings/Impression: Acute, minimally displaced fracture through the left femoral neck. Dictated by Naren Raygoza MD @ 02/05/2025 9:31:55 PM (Electronically Signed)
[2025-02-06] VITALS (27 sets, daily range): BP systolic 97–149; BP diastolic 46–72; PULSE 63–78; RESP 11–20; TEMP 35.7–37.3; O2SAT 90–99
--- NOTE | 2025-02-06 00:11 | PM.IMHP1 ---
Assessment and Plan Assessment and plan (1) Closed fracture of neck of left femur: Problem comment: - Ortho is aware and is planning surgery in the morning. NPO until then. Hydromorphone or oxycodone prn pain. - Imaging, EKG, labs reviewed. No further w/u needed prior to surgery. Continue Keppra and levothyroxine. Hold antihypertensives. - Will need PT and OT post op to also address stability and strengthening of ankles. Status: Acute (2) Right ankle injury: Problem comment: 02/05/25 XR R ankle There is a 3.5 mm ossific density along the medial hindfoot. Correlation with physical exam for focal tenderness in this region is recommended to exclude an avulsion fracture fragment. Not painful at present. Ask ortho to address this as well. Status: Acute (3) Type 2 diabetes mellitus: Problem comment: 10/27/24 HgbA1C 6.6% - Restart pioglitazone tomorrow night. Continue Trulicity (due Thursday). Hold metformin and glimipiride until after surgery. Use ISS for now. Status: Chronic (4) Renal mass: Problem comment: 02/05/25 CT abd/pelvis: 5.5 cm heterogeneous soft tissue mass within the right kidney, suspicious for renal cell carcinoma. Will need outpatient imaging and f/u. Discussed with patient and her daughter. Status: Acute (5) Seizure: Problem comment: after crani for meningioma 2013 Continue Keppra Status: Chronic (6) Essential hypertension: Problem comment: Hold antihypertensive medication until after surgery Status: Chronic (7) Hypothyroidism (acquired): Problem comment: Continue levothyroxine Status: Chronic Total Time Spent Total Time Spent: Time spent: Today I spent 75 minutes seeing the patient, discussing the patient with ER staff, reviewing Expanse and EPIC notes/diagnostics, discussing the care plan with our care team that includes social work, PT/OT, pharmacy, RT, halfway and documenting my impressions and plan in the medical record. Hospitalist- H&P: HPI History of Present Illness Time Seen by Provider: 00:11 Date Seen: 02/06/25 Chief complaint: Fall Narrative: Gracia Wyatt is a 74 year old female with a history of surgery for meningioma, seizure, stroke, malignant melanoma, hypertension, hypothyroidism, hyperlipidemia, and type 2 diabetes mellitus who cares for her with dementia in their home. She was plugging in a phone and then reach behind her to fruit picker some dirty dishes when she felt her left ankle give out and twist and fell to the ground. She denies hitting her head or losing consciousness. On the ground her right leg was trapped under her left leg and her left leg hurt and she was unable to get up. She screamed for help and eventually her came to the bottom of the stairs. She had a meningioma in 2013 for which she had surgery and then had a seizure and stroke as complications of that surgery. She has not had any seizures or stroke since then. She remains on Keppra. She denies any focal numbness, weakness, or tingling. She and her daughter note that when she is tired she still has some speech difficulty with word finding and some weakness of her left side, which were the original symptoms of her stroke. She has arthritis for which she took Tylenol today. She notes the hydromorphone that she got in the emergency room worked well for her pain, but it is just starting to wear off. She did feel nauseous with that, but ondansetron and metoclopramide worked for that. She has chronic edema of her lower extremities which gets worse in the hot summer or if she eats something salty. She notes that both of her legs feel swollen and tight today. Review of Systems Status of ROS: Reports: 10 or more systems reviewed and unremarkable except as noted in History and below Medical Decision Making Medical Decision Making Code Status: Full code Has patient completed a Health Care Directive: No During This Stay, Who Would You Like To Make Decisions For You In The Event You Are Unable To Make Them For Yourself?: All three childrenShirlene is listed as contact [facility] Medical History Encounter for FIT (fecal immunochemical test) screening ?Z12.11 - Encounter for screening for malignant neoplasm of colon (ICD-10) Malignant melanoma ?C43.9 - Malignant melanoma of skin, unspecified (ICD-10) Bilateral lower extremity edema ?R60.0 - Localized edema (ICD-10) Osteopenia ?M85.80 - Other specified disorders of bone density and structure, unspecified site (ICD-10) Ischemic stroke ?I63.9 - Cerebral infarction, unspecified (ICD-10) Obesity ?E66.9 - Obesity, unspecified (ICD-10) Meningioma ?D32.9 - Benign neoplasm of meninges, unspecified (ICD-10) Seizure ?R56.9 - Unspecified convulsions (ICD-10) Essential hypertension ?I10 - Essential (primary) hypertension (ICD-10) Hyperlipidemia ?E78.5 - Hyperlipidemia, unspecified (ICD-10) Type 2 diabetes mellitus ?E11.9 - Type 2 diabetes mellitus without complications (ICD-10) Hypothyroidism (acquired) ?E03.9 - Hypothyroidism, unspecified (ICD-10) Health care directive on file ?Z78.9 - Other specified health status (ICD-10) Surgical History (Updated 02/06/25 @ 00:15 by Keli Whitehead MD) H/O brain surgery ?Z98.890 - Other specified postprocedural states (ICD-10) Family History (Updated 02/06/25 @ 00:16 by Keli Whitehead MD) Mother Ovarian cancer Diabetes Aunt Breast cancer Father Myocardial infarction Diabetes Social History (Updated 02/06/25 @ 01:14 by Keli Whitehead MD) Narrative: Lives independently with her , whom she cares for - he has dementia. They are currently living on the lower level, but are planning on moving to the upper level to be all on one level and not have to do the stairs. What is your current living situation?: I presently have a place to live Problems where you live: no known problems Problems where you live details: N/A In the past 12 months, utilities in danger of being shut off: no In past 12 months, lack of transportation kept you from medical appts, meetings, work, or getting things needed for daily living: no In the past 12 mos, have been you worried that your food would run out before you had money to buy more?: never true In the past 12 mos, the food you bought just didn't last and you didn't have money to buy more?: never true Smoking Status: Never smoker Do you use any of these nicotine containing products: None Second hand tobacco smoke exposure: No How often do you have a drink containing alcohol: monthly or less How often do you have six or more drinks on one occasion: Never AUDIT-C Alcohol total score: 1 Non-prescribed substance use: denies use How often does anyone, including family, friends and others, physically hurt you: never How often does anyone, including family, friends and others, insult or talk down to you: never How often does anyone, including family, friends and others, threaten you with harm: never How often does anyone, including family, friends and others, scream or curse at you: never service: No Meds Home Medications and Allergies Home Medications ?Medication ?Instructions ?Recorded ?Confirmed ?Type amlodipine PO 03/21/22 03/21/22 History atorvastatin 20 mg PO HS 03/21/22 02/06/25 History dulaglutide [Trulicity] subcut 03/21/22 03/21/22 History glyburide PO 03/21/22 03/21/22 History metformin PO 03/21/22 03/21/22 History diclofenac sodium 1 % topical gel 2 g topical QID PRN 01/29/23 02/06/25 History dulaglutide 3 mg/0.5 mL 3 mg subcut Q7D 01/29/23 02/06/25 History subcutaneous pen injector (Trulicity) glimepiride 4 mg tablet 8 mg PO DAILY 01/29/23 02/06/25 History hydrochlorothiazide 50 mg tablet 50 mg PO DAILY 01/29/23 02/06/25 History levetiracetam 1,000 mg tablet 1,000 mg PO BID 01/29/23 02/06/25 History levothyroxine 100 mcg tablet 100 mcg PO QAM 01/29/23 02/06/25 History lisinopril 40 mg tablet 40 mg PO DAILY 01/29/23 02/06/25 History metformin 500 mg tablet,extended 2,000 mg PO DAILY 01/29/23 02/06/25 History release 24 hr amlodipine 5 mg tablet 5 mg PO DAILY 02/12/24 02/06/25 History pioglitazone 30 mg tablet 30 mg PO HS 02/12/24 02/06/25 History cetirizine 10 mg tablet 10 mg PO DAILY PRN 02/06/25 02/06/25 History Allergies Allergy/AdvReac Type Severity Reaction Status Date / Time niacin AdvReac Mild Rash Verified 12/03/23 06:06 clindamycin AdvReac Unknown Verified 12/03/23 06:06 piroxicam AdvReac Unknown Verified 12/03/23 06:06 penicillin G AdvReac Hives Verified 12/03/23 06:06 nuts Allergy Severe swelling Uncoded 12/03/23 06:06 shellfish Allergy Severe swelling Uncoded 12/03/23 06:06 seafood Allergy Intermediate blood Uncoded 12/03/23 06:06 blisters Exam Narrative: Exam Narrative: General: No acute distress. Awake alert oriented x3. HEENT: Normocephalic atraumatic, pupils equally round and reactive to light and accommodation. Oropharynx clear. Mucous membranes are moist. No cervical lymphadenopathy, thyromegaly or carotid bruits. No JVD. Cardiovascular: Regular rate and rhythm. No murmurs, gallops, or rubs. Chest: No increased work of breathing. Clear to auscultation bilaterally. No crackles or wheezes. Abdomen: Bowel sounds present. Soft, nondistended, nontender. No hepatosplenomegaly or masses. Extremities: No ecchymosis. Left leg is shortened and externally rotated. 1+ pitting edema bilaterally at the ankles, no cyanosis or clubbing. Skin: No jaundice, no pallor, no rashes on visible skin. Neuro: Grossly intact. No focal deficits. Const: Vital Signs, click to edit/add: Vital Signs - 24 hr 02/05/25 19:23 02/05/25 20:10 02/05/25 20:16 Temperature 97.2 F L Pulse Rate Pulse Rate [Left P ulse Oximeter] 72 Pulse Rate [Right Pulse Oximeter] Respiratory Rate 20 Blood Pressure Blood Pressure [Le ft Arm] Blood Pressure [Le ft Upper Arm] 116/73 Pulse Oximetry 98 74 L 100 Oxygen Delivery Ny thod Room Air Room Air Nasal Cannula Oxygen Flow Rate 4 02/05/25 22:03 02/05/25 22:05 02/05/25 22:06 Temperature Pulse Rate 78 Pulse Rate [Left P ulse Oximeter] Pulse Rate [Right Pulse Oximeter] Respiratory Rate Blood Pressure 122/61 Blood Pressure [Le ft Arm] Blood Pressure [Le ft Upper Arm] Pulse Oximetry 98 96 98 Oxygen Delivery Me thod Room Air Oxygen Flow Rate 02/05/25 22:06 02/05/25 22:15 02/05/25 22:30 Temperature Pulse Rate 78 75 82 Pulse Rate [Left P ulse Oximeter] Pulse Rate [Right Pulse Oximeter] Respiratory Rate Blood Pressure Blood Pressure [Le ft Arm] Blood Pressure [Le ft Upper Arm] Pulse Oximetry 96 98 97 Oxygen Delivery Me thod Oxygen Flow Rate 02/05/25 22:31 02/05/25 23:52 Temperature 98.8 F Pulse Rate 86 Pulse Rate [Left P ulse Oximeter] Pulse Rate [Right Pulse Oximeter] 75 Respiratory Rate 20 Blood Pressure 115/75 Blood Pressure [Le ft Arm] 152/75 H Blood Pressure [Le ft Upper Arm] Pulse Oximetry 95 99 Oxygen Delivery Me thod Room Air Oxygen Flow Rate Hospitalist - H&P: Result Labs Labs: Short CBC 02/05/25 Range/Units 19:34 WBC 6.51 (4.50-11.00) K/uL Hgb 10.6 L (12.0-16.0) gm/dL Hct 32.2 L (33.0-51.0) % Plt Count 234 (140-440) K/uL BMP 02/05/25 19:34 Sodium 137 Potassium 3.8 Chloride 105 Carbon Dioxide 24 BUN 40 H Creatinine 1.1 Glucose 136 H Calcium 9.5 02/05/2025 EKG: Sinus rhythm with first-degree AV block, 74 beats per minute, left axis deviation, nonspecific ST abnormality. EKG is similar to 1 done 12/03/2023. Ordering Physician: Aaron Ybarra M.D. Date of Service: 02/05/25 Procedure(s): XR knee LT 2V Accession Number(s): [id number] cc: Miles Deshpande M.D.; Aaron Ybarra M.D.~ For Patients: As a result of the Cures Act, medical imaging exams and procedure reports are released immediately into your electronic medical record. You may view this report before your referring provider. If you have questions, please contact your health care provider. INDICATION: Fall, injury today, knee pain, crepitus TECHNIQUE: Knee radiograph 2 views left COMPARISON: None FINDINGS: Bone: No acute fractures or aggressive bone lesions are identified. Moderate diffuse osteopenia is noted. Joint: Mild osteoarthritis noted in the medial, lateral, and patellofemoral compartments. No significant knee effusion is seen. Soft tissue: Unremarkable. No radiopaque foreign bodies are seen. IMPRESSION: 1. No acute osseous injuries or abnormalities are noted. Dictated by: Chester Rice MD @ 02/05/2025 20:24:28 (Electronically Signed) Ordering Physician: Aaron Ybarra M.D. Date of Service: 02/05/25 Procedure(s): XR ankle LT min 3V Accession Number(s): [id number] cc: Miles Deshpande M.D.; Aaron Ybarra M.D.~ For Patients: As a result of the Cures Act, medical imaging exams and procedure reports are released immediately into your electronic medical record. You may view this report before your referring provider. If you have questions, please contact your health care provider. INDICATION: Fall, injury today, ankle pain TECHNIQUE: Ankle radiograph 3 views left COMPARISON: None FINDINGS: Bone: No acute fractures or aggressive bone lesions are identified. There is a small plantar calcaneal spur and a moderate posterosuperior enthesophyte present. Joint: The ankle mortise joint and the visualized hindfoot joints are unremarkable in appearance. No significant ankle effusion is seen. Soft tissue: Swelling and diffuse subcutaneous edema is present. No radiopaque foreign bodies are seen. IMPRESSION: 1. No acute osseous injuries or abnormalities are noted. Dictated by Chester Rice MD @ 02/05/2025 8:24:59 PM Dictated by: Chester Rice MD @ 02/05/2025 20:25:03 (Electronically Signed) Ordering Physician: Aaron Ybarra M.D. Date of Service: 02/05/25 Procedure(s): XR ankle RT min 3V Accession Number(s): [id number] cc: Miles Deshpande M.D.; Aaron Ybarra M.D.~ For Patients: As a result of the Cures Act, medical imaging exams and procedure reports are released immediately into your electronic medical record. You may view this report before your referring provider. If you have questions, please contact your health care provider. INDICATION: Fall, injury today, ankle pain TECHNIQUE: Ankle radiograph 3 views right COMPARISON: None FINDINGS: Bone: There is a 3.5 mm ossific density along the medial hindfoot. Pes planus is suspected and can be confirmed by weightbearing views. There is a small plantar calcaneal spur and a small posterosuperior enthesophyte present. Moderate diffuse osteopenia is present. Joint: The ankle mortise joint and the visualized hindfoot joints are unremarkable in appearance. No significant ankle effusion is seen. Soft tissue: Diffuse swelling and subcutaneous edema is noted. No radiopaque foreign bodies are seen. IMPRESSION: 1. There is a 3.5 mm ossific density along the medial hindfoot. Correlation with physical exam for focal tenderness in this region is recommended to exclude an avulsion fracture fragment. Dictated by Chester Rice MD @ 02/05/2025 8:26:10 PM Dictated by: Chester Rice MD @ 02/05/2025 20:26:13 (Electronically Signed) Ordering Physician: Aaron Ybarra M.D. Date of Service: 02/05/25 Procedure(s): CT chest abdomen pelv w con Accession Number(s): [id number] cc: Miles Deshpande M.D.; Aaron Ybarra M.D.~ For Patients: As a result of the Cures Act, medical imaging exams and procedure reports are released immediately into your electronic medical record. You may view this report before your referring provider. If you have questions, please contact your health care provider. INDICATION: fall, rib, back, pelvic, L hip pain. TECHNIQUE: CT chest, abdomen and pelvis acquired with 100 cc of Omnipaque 350 IV contrast. COMPARISON: None. FINDINGS: CHEST: Cardiovascular structures: Heart size is normal. Thoracic aorta and main pulmonary artery are normal in caliber. Mediastinum and lily: No mass or adenopathy. Lungs and pleura: Lungs and pleural spaces are clear. No suspicious nodules, infiltrates, or effusions. Chest wall and axilla: No mass or adenopathy. Bones: Mild chronic-appearing T12 compression fracture. ABDOMEN AND PELVIS: Liver: 1.7 cm macroscopic fat-containing mass within the inferior right hepatic lobe, likely a angiomyolipoma. No sign of acute injury. Gallbladder and bile ducts: Unremarkable. Pancreas: Unremarkable. Spleen: Calcified granuloma. No sign of acute injury. Adrenal glands: Unremarkable. Kidneys: Heterogeneous 5.1 x 5.5 x 4.6 cm soft tissue mass within the right kidney. No hydronephrosis or stone identified. GI tract: Small hiatal hernia. Few scattered colonic diverticula. No pericolonic inflammation. No bowel obstruction. No evidence for appendicitis. Vascular structures: Normal caliber abdominal aorta with mild atherosclerotic calcification. Mesenteric arteries are patent. Lymph nodes: Unremarkable. Miscellaneous: Unremarkable. No free air or significant free fluid. Pelvic Organs: Unremarkable. Bones: Acute, nondisplaced, mildly impacted left femoral neck fracture. Multilevel degenerative changes of the spine. IMPRESSION: 1. Acute, nondisplaced mildly impacted left femoral neck fracture. 2. 5.5 cm heterogeneous soft tissue mass within the right kidney, suspicious for renal cell carcinoma. 3. 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 3. No acute findings within the chest. Please note that all CT scans at this facility use dose modulation, iterative reconstruction, and/or weight-based dosing when appropriate to reduce radiation dose to as low as reasonably achievable. Dictated by Aaron Lee MD @ 02/05/2025 8:59:47 PM (Electronically Signed) Ordering Physician: Aaron Ybarra M.D. Date of Service: 02/05/25 Procedure(s): XR hip LT min 2V Accession Number(s): [id number] cc: Miles Deshpande M.D.; Aaron Ybarra M.D.~ For Patients: As a result of the Cures Act, medical imaging exams and procedure reports are released immediately into your electronic medical record. You may view this report before your referring provider. If you have questions, please contact your health care provider. Indication: Fall, left hip fracture Technique: Frontal view of the pelvis and two views of the left hip Comparison: Same day CT Findings/Impression: Acute, minimally displaced fracture through the left femoral neck. Dictated by Naren Raygoza MD @ 02/05/2025 9:31:55 PM (Electronically Signed)
[2025-02-06] MEDS: LACTATED RINGERS 1000 ML 1,000 ML 100 ML IV ×2 (01:13→11:24)
--- NOTE | 2025-02-06 04:13 | PC.NURSE ---
Shift note: Patient is alert and oriented. Brought to the floor from ED after sustained hip fracture from a fall. She arrived to the floor at 2330 on stretcher accompanied by her daughter. She rates pain at 6/10 on arrival but mentioned that the pain medication given at the ED has been helpful. No physical injury noted. Systolic Bp was elevated on arrival, a repeat at 0215 was within normal. Lungs sounds clear, no SOB noted. Blood sugar monitored on arrival was 152. At 0300, O2 desaturated to 86%. This is prominent when patient was sleeping. Continuous Pulse monitoring set up and oxygen 1L set up. She denied SOB and chest pain at the time. 1X Deluded was given upon request for pain level of 8/10. Patient confirmed having good sleep. NPO maintained for surgical consult this morning.
[2025-02-06] MEDS: OMEPRAZOLE 20 MG CAPSULE DR PO (06:33)
--- NOTE | 2025-02-06 09:03 | P.ORCN_ITS ---
History of Present Illness HPI Date Seen: 02/06/25 Consult date: 02/06/25 Chief complaint: Fall Narrative: Gracia is a pleasant 74 year old female with numerous comorbidities (surgery for meningioma with subsequent postop seizure & stroke now managed on Keppra; julianne gnant melanoma; hypertension; hypothyroidism; hyperlipidemia; and type 2 diabetes mellitus) who was plugging in a phone and then reach behind her to cone picker some dirty dishes when she felt her left ankle give out and twist and fell to the ground. She denies hitting her head or losing consciousness. On the ground her right leg was trapped under her left leg and her left leg hurt and she was unable to get up. She normally cares for her due to his dementia in their home. She was able to get his attention. They presented [facility] 02/05/2025 via EMS. X-rays were obtained along with CT scan. Ultimately, she was found have a left femoral neck fracture. She was admitted to the hospitalist team and Orthopedics was consulted for management of this fracture. She has chronic edema of her lower extremities which gets worse in the hot summer or if she eats something salty. She notes that both of her legs feel swollen and tight today. [facility] Medical History Encounter for FIT (fecal immunochemical test) screening ?Z12.11 - Encounter for screening for malignant neoplasm of colon (ICD-10) Malignant melanoma ?C43.9 - Malignant melanoma of skin, unspecified (ICD-10) Bilateral lower extremity edema ?R60.0 - Localized edema (ICD-10) Osteopenia ?M85.80 - Other specified disorders of bone density and structure, unspecified site (ICD-10) Ischemic stroke ?I63.9 - Cerebral infarction, unspecified (ICD-10) Obesity ?E66.9 - Obesity, unspecified (ICD-10) Meningioma ?D32.9 - Benign neoplasm of meninges, unspecified (ICD-10) Seizure ?R56.9 - Unspecified convulsions (ICD-10) Essential hypertension ?I10 - Essential (primary) hypertension (ICD-10) Hyperlipidemia ?E78.5 - Hyperlipidemia, unspecified (ICD-10) Type 2 diabetes mellitus ?E11.9 - Type 2 diabetes mellitus without complications (ICD-10) Hypothyroidism (acquired) ?E03.9 - Hypothyroidism, unspecified (ICD-10) Health care directive on file ?Z78.9 - Other specified health status (ICD-10) Surgical History H/O brain surgery ?Z98.890 - Other specified postprocedural states (ICD-10) Family History Mother Ovarian cancer Diabetes Aunt Breast cancer Father Myocardial infarction Diabetes Social History Narrative: Lives independently with her , whom she cares for - he has dementia. They are currently living on the lower level, but are planning on moving to the upper level to be all on one level and not have to do the stairs. What is your current living situation?: I presently have a place to live Problems where you live: no known problems Problems where you live details: N/A In the past 12 months, utilities in danger of being shut off: no In past 12 months, lack of transportation kept you from medical appts, meetings, work, or getting things needed for daily living: no In the past 12 mos, have been you worried that your food would run out before you had money to buy more?: never true In the past 12 mos, the food you bought just didn't last and you didn't have money to buy more?: never true Smoking Status: Never smoker Do you use any of these nicotine containing products: None Second hand tobacco smoke exposure: No How often do you have a drink containing alcohol: monthly or less How often do you have six or more drinks on one occasion: Never AUDIT-C Alcohol total score: 1 Non-prescribed substance use: denies use How often does anyone, including family, friends and others, physically hurt you : never How often does anyone, including family, friends and others, insult or talk down to you: never How often does anyone, including family, friends and others, threaten you with harm: never How often does anyone, including family, friends and others, scream or curse at you: never service: No Meds Home Medications and Allergies Home Medications ?Medication ?Instructions ?Recorded ?Confirmed ?Type atorvastatin 20 mg PO HS 03/21/22 5 History diclofenac sodium 1 % topical gel 2 g topical QID PRN 01/29/23 02/06/25 History dulaglutide 3 mg/0.5 mL 3 mg subcut Q7D 01/29/23 History subcutaneous pen injector (Trulicity) glimepiride 4 mg tablet 8 mg PO DAILY 01/29/2302/06 History hydrochlorothiazide 50 mg tablet 50 mg PO DAILY 02/06/25 History levetiracetam 1,000 mg tablet 1,000 mg PO BID 01/29/23 02/06/25 History levothyroxine 100 mcg tablet 100 mcg PO QAM 01/29/23 0 02/06/25 History lisinopril 40 mg tablet 40 mg PO DAILY 01/29/2301/20 History metformin 500 mg tablet,extended 2,000 mg PO DAILY 04/1302/06/25 History release 24 hr amlodipine 5 mg tablet 5 mg PO DAILY 02/12/2402/06 History pioglitazone 30 mg tablet 30 mg PO HS 02/12/24 5 History atorvastatin 20 mg tablet 20 mg PO DAILY 02/06/2501/20 History cetirizine 10 mg tablet 10 mg PO DAILY PRN 02/06/25 02/06/25 History Allergies Allergy/AdvReac Type Severity Reaction Status Date / Time niacin AdvReac Mild Rash Verified 12/03/23 06:06 clindamycin AdvReac Unknown Verified 12/03/23 06:06 piroxicam AdvReac Unknown Verified 12/03/23 06:06 penicillin G AdvReac Hives Verified 12/03/23 06:06 nuts Allergy Severe swelling Uncoded 12/03/23 06:06 shellfish Allergy Severe swelling Uncoded 12/03/23 06:06 seafood Allergy Intermediate blood Uncoded 12/03/23 06:06 blisters Ortho Exam Narrative Exam Narrative: Alert and orient x3. Provides the history. Cooperative with the exam. Lying supine in hospital bed. Left hip exam shows no erythema, induration, or other cutaneous changes. No lacerations or abrasions or ecchymosis. Tender to palpation around the left hip. Left hip is painful with any hip or knee range of motion. Neurologic intact in superficial and deep peroneal as well as plantar distribution to sensory light touch and motor function. 2+ DP and PT pulse. Left wrist also shows tenderness to palpation over the distal radius dorsally and along the radial styloid. This is more tender than the radiocarpal articulation. Mild swelling about the wrist. No ecchymosis. Neurologic intact left upper extremity all 5 dermatomes and myotomes. Const Vital Signs, click to edit/add: Vital Signs - 24 hr 02/05/25 19:23 02/05/25 20:10 02/05/25 20:16 Temperature 97.2 F L Pulse Rate Pulse Rate [Left Pulse Oximeter] 72 Pulse Rate [Right Pulse Oximeter] Respiratory Rate 20 Blood Pressure Blood Pressure [Left Arm] Blood Pressure [Left Upper Arm] 116/73 Pulse Oximetry 98 74 L 100 Oxygen Delivery Method Room Air Room Air Nasal Cannula Oxygen Flow Rate 4 02/05/25 22:03 02/05/25 22:05 02/05/25 22:06 Temperature Pulse Rate 78 Pulse Rate [Left Pulse Oximeter] Pulse Rate [Right Pulse Oximeter] Respiratory Rate Blood Pressure 122/61 Blood Pressure [Left Arm] Blood Pressure [Left Upper Arm] Pulse Oximetry 98 96 98 Oxygen Delivery Method Room Air Oxygen Flow Rate 02/05/25 22:06 02/05/25 22:15 02/05/25 22:30 Temperature Pulse Rate 78 75 82 Pulse Rate [Left Pulse Oximeter] Pulse Rate [Right Pulse Oximeter] Respiratory Rate Blood Pressure Blood Pressure [Left Arm] Blood Pressure [Left Upper Arm] Pulse Oximetry 96 98 97 Oxygen Delivery Method Oxygen Flow Rate 02/05/25 22:31 02/05/25 23:52 02/06/25 00:19 Temperature 98.8 F Pulse Rate 86 Pulse Rate [Left Pulse Oximeter] Pulse Rate [Right Pulse Oximeter] 75 Respiratory Rate 20 20 Blood Pressure 115/75 Blood Pressure [Left Arm] 152/75 H Blood Pressure [Left Upper Arm] Pulse Oximetry 95 99 99 Oxygen Delivery Method Room Air Room Air Oxygen Flow Rate 02/06/25 01:05 02/06/25 02:37 02/06/25 07:00 Temperature 97.7 F Pulse Rate Pulse Rate [Left Pulse Oximeter] Pulse Rate [Right Pulse Oximeter] 75 Respiratory Rate 20 20 Blood Pressure Blood Pressure [Left Arm] 134/66 Blood Pressure [Left Upper Arm] Pulse Oximetry 93 93 96 Oxygen Delivery Method Room Air Nasal Cannula Oxygen Flow Rate 1 02/06/25 07:45 Temperature 99.1 F Pulse Rate Pulse Rate [Left Pulse Oximeter] Pulse Rate [Right Pulse Oximeter] 77 Respiratory Rate 20 Blood Pressure Blood Pressure [Left Arm] 141/72 H Blood Pressure [Left Upper Arm] Pulse Oximetry 96 Oxygen Delivery Method Nasal Cannula Oxygen Flow Rate 1 Results Labs Labs: Laboratory Results - last 48 hr 02/05/25 02/05/25 19:34 19:39 WBC 6.51 RBC 3.54 L Hgb 10.6 L Hct 32.2 L MCV 91 MCH 30 MCHC 33 RDW Coeff of Rossi 13.9 Plt Count 234 Neut % (Auto) 67.2 Lymph % (Auto) 24.1 [place] % (Auto) 6.5 Eos % (Auto) 1.7 Baso % (Auto) 0.2 Neut # (Auto) 4.38 Lymph # (Auto) 1.57 [place] # (Auto) 0.40 Eos # (Auto) 0.11 Baso # (Auto) 0.01 Abs Immat Gran (auto) 0.02 Imm/Tot Granulo (auto) 0.3 INR 0.98 Sodium 137 Potassium 3.8 Chloride 105 Carbon Dioxide 24 Anion Gap 8 BUN 40 H Creatinine 1.1 Estimated Creat Clear 41.37 Estimated GFR 52 Glucose 136 H Calcium 9.5 POC Creatinine 1.3 Diagnostic results Additional Comments: CT scan of the chest abdomen and pelvis from [facility] dated 02/05/2025 was ordered by a different provider and reviewed by me. From an orthopedic standpoint this demonstrates an acute, nondisplaced mildly valgus impacted femoral neck fracture on the left side. Incidentally, multilevel thoracolumbar spondylosis seen with osteophyte formation, subchondral/endplate sclerosis, and disc height narrowing. This is most notable at L5-S1 and L3-4. There is also a compression fracture seen of T12 that appears chronic. 3 radiographic views of the right ankle from [facility] dated 02/05/2025 were ordered by different provider and reviewed by me. This shows no clear acute fractures or avulsions. A generalized valgus ankle position is noted. Soft tissue swelling is seen with the lateral ankle in particular. 3.5 mm ossific density along the medial hindfoot. 3 radiographic views of the left ankle from [facility] dated 02/05/2025 were ordered by a different provider and reviewed by me. This demonstrates no acute fractures or avulsions or other osseous injuries. 2 radiographic views of the left knee from 02/05/2025 [facility] images were ordered by different provider and reviewed by me. This shows no acute fractures or avulsions. Moderate patellofemoral osteoarthrosis incidentally not ed. Difficult to assess tibial femoral joint space narrowing is these are nonweightbearing views. Assessment and Plan Assessment and plan (1) Closed fracture of neck of left femur: Problem comment: - Ortho is aware and is planning surgery in the morning. NPO until then. Hydromorphone or oxycodone prn pain. - Imaging, EKG, labs reviewed. No further w/u needed prior to surgery. Continue Keppra and levothyroxine. Hold antihypertensives. - Will need PT and OT post op to also address stability and strengthening of ankles. Status: Acute Total time spent: Total time spent is greater than 50% in coordination of care (as documented) at patient's floor/unit and/or counseling patient: (2) Right ankle injury: Problem comment: 02/05/25 XR R ankle There is a 3.5 mm ossific density along the medial hindfoot. Correlation with physical exam for focal tenderness in this region is recommended to exclude an avulsion fracture fragment. Not painful at present. Ask ortho to address this as well. Status: Acute Total time spent: Total time spent is greater than 50% in coordination of care (as documented) at patient's floor/unit and/or counseling patient: (3) Type 2 diabetes mellitus: Problem comment: 10/27/24 HgbA1C 6.6% - Restart pioglitazone tomorrow night. Continue Trulicity (due Thursday). Hold metformin and glimipiride until after surgery. Use ISS for now. Status: Chronic Total time spent: Total time spent is greater than 50% in coordination of care (as documented) at patient's floor/unit and/or counseling patient: (4) Renal mass: Problem comment: 02/05/25 CT abd/pelvis: 5.5 cm heterogeneous soft tissue mass within the right kidney, suspicious for renal cell carcinoma. Will need outpatient imaging and f/u. Discussed with patient and her daughter. Status: Acute Total time spent: Total time spent is greater than 50% in coordination of care (as documented) at patient's floor/unit and/or counseling patient: (5) Seizure: Problem comment: after crani for meningioma 2014 Continue Keppra Status: Chronic Total time spent: Total time spent is greater than 50% in coordination of care (as documented) at patient's floor/unit and/or counseling patient: (6) Essential hypertension: Problem comment: Hold antihypertensive medication until after surgery Status: Chronic Total time spent: Total time spent is greater than 50% in coordination of care (as documented) at patient's floor/unit and/or counseling patient: (7) Hypothyroidism (acquired): Problem comment: Continue levothyroxine Status: Chronic Total time spent: Total time spent is greater than 50% in coordination of care (as documented) at patient's floor/unit and/or counseling patient: Plan It was helpful to speak with Gracia and correlate her clinical picture with her imaging findings. The CT scan of the pelvis is very helpful to better detail the extent of the fracture. The fracture indeed is a complete femoral neck fracture but essentially a valgus impacted type of fracture. The medial calcar is still well positioned/well aligned and I think, therefore, reasonable to stabilize the fracture via ORIF rather than doing a bipolar hemiarthroplasty. However, I did talk with her about both surgical options as it is possible in the bed transfer state that the fracture could displace. I described the pros and cons of the both surgical options as well as the nonoperative route option. However, as she previously was a community ambulator I do think surgery is indicated and prudent. After hearing the pros and cons/risks and benefits including local risks (e.g. Infection, wound healing issues, fracture malunion, limb length inequality, femoral head avascular necrosis development, need for future procedure) as well as systemic risks (e.g. VTE, IL, stroke), she states understanding and indeed would like to proceed with surgery. She is NPO. We will plan for surgery today on 02/06/2025. Following the surgery, I would anticipate she would be able to weight bear as tolerated. Walker ambulation assistance. She may benefit from rehab facility transition, but we will see how she is progressing via physical therapy postop. I have been able speak with the hospitalist team and anesthesia team regarding the care of Gracia.
--- NOTE | 2025-02-06 09:28 | PM.IMPN1 ---
Assessment and Plan Assessment and plan (1) Closed fracture of neck of left femur: Problem comment: - Dr Zurita of Orthopedic surgery consulted; plan for surgical repair today - no history of previous surgical or anesthetic complications - Imaging, EKG, labs reviewed on admission. No further w/u needed prior to surgery - postoperative Hgb and therapies Status: Acute (2) Right ankle injury: Problem comment: - 02/05/25 XR R ankle There is a 3.5 mm ossific density along the medial hindfoot. Correlation with physical exam for focal tenderness in this region is recommended to exclude an avulsion fracture fragment, Ortho to address as patient not currently symptomatic Status: Acute (3) Injury of left hand: Problem comment: - mild edema L hand, mild discomfort with ROM, Ortho following Status: Acute (4) Renal mass: Problem comment: - 02/05/25 CT abd/pelvis: 5.5 cm heterogeneous soft tissue mass within the right kidney, suspicious for renal cell carcinoma. - Will need outpatient imaging and f/u. Discussed with patient and her daughter on admission Status: Acute (5) Normocytic anemia: Problem comment: - Hgb 10.6 on 02/05/25; last Hgb was 12/13 and wnl, no recent CBC in [facility] - no melena or GERD, has never had a colonoscopy but previous FOBT negative - source unclear; possibly related to fracture, continue to follow Hgb during stay Status: Acute (6) Type 2 diabetes mellitus: Problem comment: - 10/27/24 HgbA1C 6.6% - Restart pioglitazone tomorrow night. Continue Trulicity (due Thursday). Hold metformin and glimipiride until after surgery. Use ISS for now. Status: Chronic (7) Seizure: Problem comment: - after meningioma resection in 2013 - continue Keppra Status: Chronic (8) Essential hypertension: Problem comment: - holding BP meds, will restart postop when BP appropriate Status: Chronic (9) Hypothyroidism (acquired): Problem comment: Continue levothyroxine Status: Chronic Plan - per above (Surgery today, postoperative lab monitoring, therapies) Subjective Date Seen: 02/06/25 Interval history: Gracia was admitted to the hospital last night after a ground level mechanical fall at home; in the emergency room was diagnosed with and left femoral neck fracture. She is having surgical intervention with Orthopedic surgery today (Dr. Zurita). No previous history of anesthetic or surgical complications; reassuring EKG in the emergency room. Incidentally noted to have a renal mass on admission imaging; this was discussed with patient and daughter on admission and she will have outpatient follow-up with PCP (Dr. Deshpande). Also noted to have mild normocytic anemia, will follow hemoglobin. BG 103-152 Gracia has no concerns for hospitalist team this morning. Exam Narrative: Exam Narrative: GEN: Alert and oriented, laying comfortably in bed and answering questions appropriately HEENT: EOMIs bilaterally, no scleral icterus CV: RRR, No concerning murmurs R: LCTA bilaterally without concerning wheezing Ext: Mild edema of left hand with out bruising. Mild discomfort with flexion and extension at wrist, able to move all fingers Skin: No concerning skin lesions or rashes on exposed skin Neuro: No focal deficits on limited exam, no resting tremor Psych: Appropriate Const: Vital Signs, click to edit/add: Vital Signs - 24 hr 02/05/25 19:23 02/05/25 20:10 02/05/25 20:16 Temperature 97.2 F L Pulse Rate Pulse Rate [Left P ulse Oximeter] 72 Pulse Rate [Right Pulse Oximeter] Respiratory Rate 20 Blood Pressure Blood Pressure [Le ft Arm] Blood Pressure [Le ft Upper Arm] 116/73 Pulse Oximetry 98 74 L 100 Oxygen Delivery Me thod Room Air Room Air Nasal Cannula Oxygen Flow Rate 4 02/05/25 22:03 02/05/25 22:05 02/05/25 22:06 Temperature Pulse Rate 78 Pulse Rate [Left P ulse Oximeter] Pulse Rate [Right Pulse Oximeter] Respiratory Rate Blood Pressure 122/61 Blood Pressure [Le ft Arm] Blood Pressure [Le ft Upper Arm] Pulse Oximetry 98 96 98 Oxygen Delivery Me thod Room Air Oxygen Flow Rate 02/05/25 22:06 02/05/25 22:15 02/05/25 22:30 Temperature Pulse Rate 78 75 82 Pulse Rate [Left P ulse Oximeter] Pulse Rate [Right Pulse Oximeter] Respiratory Rate Blood Pressure Blood Pressure [Le ft Arm] Blood Pressure [Le ft Upper Arm] Pulse Oximetry 96 98 97 Oxygen Delivery Me thod Oxygen Flow Rate 02/05/25 22:31 02/05/25 23:52 02/06/25 00:19 Temperature 98.8 F Pulse Rate 86 Pulse Rate [Left P ulse Oximeter] Pulse Rate [Right Pulse Oximeter] 75 Respiratory Rate 20 20 Blood Pressure 115/75 Blood Pressure [Le ft Arm] 152/75 H Blood Pressure [Le ft Upper Arm] Pulse Oximetry 95 99 99 Oxygen Delivery Me thod Room Air Room Air Oxygen Flow Rate 02/06/25 01:05 02/06/25 02:37 02/06/25 07:00 Temperature 97.7 F Pulse Rate Pulse Rate [Left P ulse Oximeter] Pulse Rate [Right Pulse Oximeter] 75 Respiratory Rate 20 20 Blood Pressure Blood Pressure [Le ft Arm] 134/66 Blood Pressure [Le ft Upper Arm] Pulse Oximetry 93 93 96 Oxygen Delivery Me thod Room Air Nasal Cannula Oxygen Flow Rate 1 02/06/25 07:45 Temperature 99.1 F Pulse Rate Pulse Rate [Left P ulse Oximeter] Pulse Rate [Right Pulse Oximeter] 77 Respiratory Rate 20 Blood Pressure Blood Pressure [Le ft Arm] 141/72 H Blood Pressure [Le ft Upper Arm] Pulse Oximetry 96 Oxygen Delivery Me thod Nasal Cannula Oxygen Flow Rate 1 Labs Labs: Laboratory Results - last 24 hr 02/05/25 02/05/25 19:34 19:39 WBC 6.51 RBC 3.54 L Hgb 10.6 L Hct 32.2 L MCV 91 MCH 30 MCHC 33 RDW Coeff of [place] 13.9 Plt Count 234 Neut % (Auto) 67.2 Lymph % (Auto) 24.1 [place] % (Auto) 6.5 Eos % (Auto) 1.7 Baso % (Auto) 0.2 Neut # (Auto) 4.38 Lymph # (Auto) 1.57 [place] # (Auto) 0.40 Eos # (Auto) 0.11 Baso # (Auto) 0.01 Abs Immat Gran (auto) 0.02 Imm/Tot Granulo (auto) 0.3 INR 0.98 Sodium 137 Potassium 3.8 Chloride 105 Carbon Dioxide 24 Anion Gap 8 BUN 40 H Creatinine 1.1 Estimated Creat Clear 41.37 Estimated GFR 52 Glucose 136 H Calcium 9.5 POC Creatinine 1.3
--- NOTE | 2025-02-06 10:00 | CRLHL7_ITS ---
For Patients: As a result of the Cures Act, medical imaging exams and procedure reports are released immediately into your electronic medical record. You may view this report before your referring provider. If you have questions, please contact your health care provider. INDICATION: Left hip intra op ORIF. TECHNIQUE: Two spot images of the left hip. 32.1 seconds fluoro time. FINDINGS: ORIF of left femoral neck fracture. Dictated by Marv Cali MD @ 02/08/2025 8:10:12 AM (Electronically Signed)
[2025-02-06] MEDS: TRANEXAMIC ACID 100 MG/ML INJ 1000 MG IV (10:15)
--- NOTE | 2025-02-06 10:54 | SUR.OPER ---
PATIENT QUESTIONS ANSWERED SATISFACTORILY PREOPERATIVELY. PATIENT BROUGHT TO OR #2 PER MED/SURG BED. Patient positioned supine on OR #2 bed. The perioperative team supported arms bilaterally on arm boards. Final approval of positioning by surgeon.
--- NOTE | 2025-02-06 11:25 | P.ORPRC_ITS ---
Procedure Note Date of procedure: 02/06/25 Procedure: PREOPERATIVE DIAGNOSES: 1. Left femoral neck fracture, mildly valgus angulated, nondisplaced, extra- articular POSTOPERATIVE DIAGNOSES: 1. Left femoral neck fracture, mildly valgus angulated, nondisplaced, extra- articular NAME OF OPERATION: 1. Left femur open reduction and internal fixation 2. 95705 - intraoperative fluoroscopy up to 1 hour. SURGEON: Louis Zurita MD SECURITIES AND REAL ESTATE DIRECTOR: Judit Austin PA-C. Of note, an assistant manager airside operations was critical for this case to aide in patient positioning, extremity positioning, tissue retraction, instrument manipulation, and closure. ANESTHESIA: Spinal IMPLANTS: Synthes femoral neck system (FNS) with 1 hole side plate with associated screw, a lag screw, and divergent femoral head screw EBL: 150 mL COMPLICATIONS: None evident INDICATIONS: The patient is a pleasant, 74-year-old female who unfortunately sustained a fall within the last 24 hours. They landed on their left hip and were unable to bear weight. They experienced significant pain which prompted a visit to [facility]. X-rays were obtained and revealed a proximal femur fracture consistent with that described above. Given these findings, along with the desire to help with pain control and improve mobi lity/mobilization, surgery was recommended to stabilize the fracture and prevent it from displacing. PROCEDURE: Following a thorough discussion of risks, benefits, and alternatives, consent was obtained and the left hip was marked. After obtaining proper medical evaluation determining the patient was optimized prior to surgery, they were brought to the operating room and placed supine on the ope rating table. Induction of anesthesia undertaken. 2 g IV Ancef was administered within 1 hr of incision preoperatively. Proper time-out was performed identifying proper patient, site, and procedure. The operative extremity was prepped & draped in the appropriate sterile fashion using ChloraPrep after the patient was positioned on the fracture table with the head in neutral alignment and all bone prominences well padded. C-arm fluoroscopic imaging was utilized to obtain AP and lateral views of the operative hip. This indeed confirmed proper position of the proximal femur fracture. 10 blade skin incision was made distal to the greater trochanteric tip. Sharp incision through skin and ITB band allowed palpation of the proximal femur distal to the greater trochanteric tip. A partially threaded guidewire was initially placed near the center of the femoral neck position on both AP and lateral planes. Following this the associated steps for placement of the FNS device were completed sequentially including the bolt, crossing screw for 1 hole plate, and anti-rotation screw, which showed excellent alignment/reduction with impaction of the bolt. C-arm fluoroscopic imaging confirmed fracture to remain stable, screws to be extra-articular, and the femur to now be moving as a single unit. Irrigation normal saline was performed followed by closure with # 0 Vicryl for the ITB band, 2-O Vicryl and 4-0 Monocryl for subcutaneous and subcuticular closure, respectively. The patient was awoken from anesthesia and transferred to the PACU in stable condition. PLAN: 1. Weight bear as tolerated operative lower extremity. 2. Encouraged ice. 3. Oxycodone for pain as needed. 4. 23 hr perioperative antibiotics. 5. Chemoprophylaxis for DVT prophylaxis along with Clark carranza and SCDs.
--- NOTE | 2025-02-06 11:46 | P.ANES_ITS ---
Anesthesia Charges Start Date/Time Anesthesia Start Date: 02/06/25 Anesthesia Start Time: 10:06 Stop Date/Time Anesthesia Stop Date: 02/06/25 Anesthesia Stop Time: 11:44 Coding CPT Codes CPT Codes: ANESTH HIP JOINT SURGERY - 47285 ([id number]) P3 - PATIENT W/SEVERE SYS DISEASE, QK - FIXTURE DESIGNER 2-4 CNCRNT ANES PROC, QX - EXPRESSIVE MUSIC THERAPIST SVC W/ MD MED DIRECTION
--- NOTE | 2025-02-06 11:46 | W.ANESCHARGE ---
Anesthesia Charges Start Date/Time Anesthesia Start Date: 02/06/25 Anesthesia Start Time: 10:06 Stop Date/Time Anesthesia Stop Date: 02/06/25 Anesthesia Stop Time: 11:44 Coding CPT Codes CPT Codes: ANESTH HIP JOINT SURGERY - 64884 ([id number]) P3 - PATIENT W/SEVERE SYS DISEASE, QK - SOLUTIONS DELIVERY CONSULTANT 2-4 CNCRNT ANES PROC, QX - OFFICE ADMINISTRATOR SVC W/ MD MED DIRECTION
--- NOTE | 2025-02-06 12:05 | P.ANES_ITS ---
Anesthesia Charges Start Date/Time Anesthesia Start Date: 02/06/25 Anesthesia Start Time: 10:06 Stop Date/Time Anesthesia Stop Date: 02/06/25 Anesthesia Stop Time: 11:44 Summary Extremes of Age - Over 70 or under 1: MDA Coding CPT Codes CPT Codes: ANESTH SURGERY OF FEMUR - 35874 ([id number]) QK - ADJUNCT HISTORY INSTRUCTOR 2-4 CNCRNT ANES PROC, QX - HAND BOOTMAKER SVC W/ MD MED DIRECTION, P3 - PATIENT W/SEVERE SYS DISEASE Additional Codes: Summary - Extremes of Age - Over 70 or under 1: MDA ([id number])
--- NOTE | 2025-02-06 12:08 | P.NB_ITS ---
Nerve Block Nerve Block Time Seen by Provider: 10:21 Date Seen: 02/06/25 Type of block requested by surgeon for post-operative analgesia: ADAN/LFCN Side: left Time out performed: Yes Verification of patient name: Yes Verification of date of : Yes Site marking: site marked Name of person performing procedure: Carlos Continuous monitoring Was continuous monitoring of O2 sat, B/P, guidance and control system engineer, recorded every 15 minutes?: Yes Procedure Checklist: sterile prep, needles and gloves Ultrasound guided. Images saved: Yes Medications given in 5ml increments after negative aspiration: Ropivicaine %: 0.5 mL: 30 Needle gauge: 20 Precedex (mcg): 25 Patient tolerated procedure well: Yes Additional comments: Needle noted below psoas tendon needle noted adjacent to LFCN Block Charges Block Charge (with Pro Fee): Other Periph Nerve Block Use of Ultrasound Machine for Block: Yes- US Guidance/pain block
--- NOTE | 2025-02-06 12:21 | SUR.PHASEI ---
patient met discharge criteria per anesthesia
[2025-02-06] MEDS: LEVOTHYROXINE 100 MCG TABLET PO (13:41)
[2025-02-06] MEDS: LACTATED RINGERS 1000 ML 1,000 ML 75 ML IV (13:52)
[2025-02-06] MEDS: CEFAZOLIN 2 GM in 0.9 % SODIUM CHLORIDE Mini-bag 100 ML IVPB ×2 (15:42→23:28)
[2025-02-06] MEDS: BENZOCAINE/MENTHOL 1 EACH LOZENGE MUCOUS MEM (15:42)
--- NOTE | 2025-02-06 19:12 | PC.NURSE ---
End of Shift: Patient pleasant and cooperative, A&O. VSS, afebrile. SpO2 maintained above 90% on RA while awake, pt needing supplemental O2 when she falls asleep. Dressing to left hip C/D/I. Pt reports pain on her left hip, managed with PRN medications, see AUG. SCD's on. Patient appears to be resting comfortably in bed with call light within reach.
[2025-02-06] MEDS: PIOGLITAZONE HCL 15 MG TABLET 30 MG PO (21:16)
[2025-02-06] MEDS: ATORVASTATIN CALCIUM 10 MG TABLET 20 MG PO (21:16)
[2025-02-06] MEDS: SENNOSIDES 1 TAB TABLET 2 TAB PO (21:16)
[2025-02-06] MEDS: SODIUM CHLORIDE 0.9 % (FLUSH) 10 ML SYRINGE 5 ML IVF (21:19)
[2025-02-06] MEDS: INSULIN ASPART 100 UNIT/ML SUBCUT (23:28)
[2025-02-07] VITALS (9 sets, daily range): BP systolic 132–159; BP diastolic 63–78; PULSE 65–79; RESP 16–18; TEMP 36.7–37.1; O2SAT 92–97; BMI 34.9
--- NOTE | 2025-02-07 06:06 | PC.NURSE ---
Arrived to find the patient alert and oriented and vitally stable without oxygen. Without oxygen she dips below 90 when asleep. Using an oxymask PRN. Left leg incision site covered with a clean, dry, and intact dressing. The surrounding tissue is of a normal coloration and not swollen. However, the patient has been unable to move her left leg to any significant degree. Neither up and down nor left and right. Purewick is in place for urination overnight. Plus two pitting edema of the ankles. No pain while at rest until the morning around 0500 when pain became a seven out of ten. Pain located in the left upper femur near the hip. Left wrist appears swollen but is nonpitting.
[2025-02-07] MEDS: OMEPRAZOLE 20 MG CAPSULE DR PO (06:37)
[2025-02-07 06:56] LABS: Hematocrit 28.8 % (33.0-51.0); Hemoglobin* 9.5 gm/dL (12.0-16.0); Immature Granulocytes Abs Auto 0.02 K/uL (0.00-0.30); Immature Granulocytes Pct Auto 0.2 %; Mean Corpuscular HGB Conc 33 gm/dL (32-36); Mean Corpuscular Hemoglobin 30 pg (26-34); Mean Corpuscular Volume 92 fL (80-100); RDW Coefficient of Variation % 14.1 % (11.5-15.5); Red Blood Count 3.14 m/uL (4.00-5.20); White Blood Count* 9.27 K/uL (4.50-11.00)
[2025-02-07 07:02] LABS: Lymphocytes Absolute Auto 1.30 K/uL (0.90-2.90); Slide Review Reflex No
[2025-02-07 07:09] LABS: Chloride* 101 mmol/L (96-114); Potassium* 4.1 mmol/L (3.6-5.1); Sodium* 135 mmol/L (135-149)
[2025-02-07 07:12] LABS: Anion Gap 3 mEq/L (7-15); Blood Urea Nitrogen* 22 mg/dL (7-30); Carbon Dioxide* 31 mmol/L (20-32); Creatinine* 0.9 mg/dL (0.5-1.5); Est. Creatinine Clearance* 45.50; Estimated Glomerular Filt Rate 67 ml/min
[2025-02-07 07:13] LABS: Calcium* 9.1 mg/dL (8.4-10.6); Glucose* 99 mg/dL (60-115)
--- NOTE | 2025-02-07 08:10 | P.ORPN_ITS ---
Subjective Subjective Time Seen by Provider: 07:35 Date Seen: 02/07/25 Principal diagnosis: Day 1 s/p left hip ORIF (DOS: 02/06/25, Dr. Zurita) Interval history: Gracia is resting in bed. She c/o severe nausea this morning due to the dose of hydromorphone that she received approximately 45 minutes prior to our visit. Gracia explains that she does not tolerate medications well. Regarding her operative hip, she is doing well with minimal pain. Her right knee is the most bothersome. Yesterday evening, she was unable to ambulate or weightbear due to left lower extremity weakness and left knee pain. Left knee images were negative for acute fractures and there is no left knee effusion. Prior to her fall, Gracia had the same troubles regarding her left knee. At home, she wears a bamboo knee brace. Denies chest pain, SOB. Patient is on O2 via face mask. Upon removal of this mask, her sats dropped to 89%. Patient denies postop bowel movement and flatulence. Patient's daughter, Shirlene, arrived at the end of our conversation. 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 Charge Gang Weigher will be consulted to discuss this further. I told Gracia and Shirlene that I anticipate she will require a fpc facility upon discharge. I was also able to review left knee images and left hip images (pre- op and post-op) with Shirlene and Gracia. Ortho Exam Narrative Exam Narrative: She converses with nonlabored breathing with a face mask in place. Patient is alert and oriented x3. No acute distress. Patient is able to make decisions and demonstrates good insight. Patient is pleasant and cooperative. Affect is full range and appropriate for the circumstances. Patient is quite nausea and dry heaving during our visit with the emesis bag nearby. Incision/Dressing: Dressing appears clean and dry. No drainage present. Mepilex intact. Left hip appears moderately swollen but supple with no obvious erythema, fluctuance or excessive warmth. No ecchymosis or erythematous streaking. Warmth around the wound is appropriate. Ice is being utilized. CMS: Intact distally with 2+ Dorsalis pedis and Posterior Tibial pulses. Sensation intact distally. Calf: Bilateral calves are supple, with no swelling, pain, tenderness, erythema, discoloration or coolness to the touch. Const Vital Signs, click to edit/add: Vital Signs - 24 hr 02/06/25 11:39 02/06/25 11:45 02/06/25 11:50 Temperature 98 F 98 F 98 F Pulse Rate 70 70 63 Pulse Rate [Bilateral Dorsalis Pedis] Pulse Rate [Left Pulse Oximeter] Respiratory Rate 11 L 11 L 15 Blood Pressure 107/46 L 97/50 L 101/50 L Blood Pressure [Left Arm] Blood Pressure [Right Arm] Pulse Oximetry 95 96 96 Oxygen Delivery Method OxyMask OxyMask OxyMask Oxygen Flow Rate 6 6 6 02/06/25 11:55 02/06/25 12:00 02/06/25 12:05 Temperature 98 F 98 F 98 F Pulse Rate 65 70 70 Pulse Rate [Bilateral Dorsalis Pedis] Pulse Rate [Left Pulse Oximeter] Respiratory Rate 12 12 11 L Blood Pressure 101/52 L 105/55 L 108/55 L Blood Pressure [Left Arm] Blood Pressure [Right Arm] Pulse Oximetry 97 98 90 Oxygen Delivery Method OxyMask Room Air Room Air Oxygen Flow Rate 6 02/06/25 12:10 02/06/25 12:16 02/06/25 12:30 Temperature 97.7 F 96.3 F L 96.9 F L Pulse Rate 67 66 69 Pulse Rate [Bilateral Dorsalis Pedis] Pulse Rate [Left Pulse Oximeter] Respiratory Rate 12 14 14 Blood Pressure 117/56 L 122/59 L 118/63 Blood Pressure [Left Arm] Blood Pressure [Right Arm] Pulse Oximetry 95 90 96 Oxygen Delivery Method Room Air Room Air OxyMask Oxygen Flow Rate 3 02/06/25 12:45 02/06/25 13:00 02/06/25 13:15 Temperature 96.9 F L 97.0 F L 97.1 F L Pulse Rate 70 70 73 Pulse Rate [Bilateral Dorsalis Pedis] Pulse Rate [Left Pulse Oximeter] Respiratory Rate 14 14 14 Blood Pressure 120/62 121/63 119/67 Blood Pressure [Left Arm] Blood Pressure [Right Arm] Pulse Oximetry 95 96 93 Oxygen Delivery Method OxyMask OxyMask Room Air Oxygen Flow Rate 3 3 02/06/25 14:00 02/06/25 14:30 02/06/25 15:00 Temperature Pulse Rate 72 65 Pulse Rate [Bilateral Dorsalis Pedis] Pulse Rate [Left Pulse Oximeter] Respiratory Rate 14 Blood Pressure 133/69 121/70 Blood Pressure [Left Arm] Blood Pressure [Right Arm] Pulse Oximetry 96 Oxygen Delivery Method Room Air Room Air Oxygen Flow Rate 02/06/25 15:00 02/06/25 15:00 02/06/25 15:00 Temperature 98.0 F 98.0 F Pulse Rate 75 Pulse Rate [Bilateral Dorsalis Pedis] Pulse Rate [Left Pulse Oximeter] 75 Respiratory Rate 14 16 16 Blood Pressure 125/63 Blood Pressure [Left Arm] Blood Pressure [Right Arm] 125/63 Pulse Oximetry 96 99 99 Oxygen Delivery Method Room Air OxyMask Room Air Oxygen Flow Rate 2 02/06/25 16:00 02/06/25 17:00 02/06/25 18:00 Temperature 98.0 F Pulse Rate 76 71 75 Pulse Rate [Bilateral Dorsalis Pedis] Pulse Rate [Left Pulse Oximeter] Respiratory Rate 16 16 16 Blood Pressure 129/66 133/68 131/66 Blood Pressure [Left Arm] Blood Pressure [Right Arm] Pulse Oximetry 90 97 99 Oxygen Delivery Method OxyMask OxyMask OxyMask Oxygen Flow Rate 2 2 2 02/06/25 19:23 02/06/25 23:00 02/06/25 23:30 Temperature 98.2 F Pulse Rate Pulse Rate [Bilateral Dorsalis Pedis] Pulse Rate [Left Pulse Oximeter] 78 Respiratory Rate 20 Blood Pressure Blood Pressure [Left Arm] 139/67 Blood Pressure [Right Arm] Pulse Oximetry 98 92 92 Oxygen Delivery Method Room Air Room Air Oxygen Flow Rate 02/06/25 23:35 02/06/25 23:35 02/07/25 02:18 Temperature 98.6 F 98.3 F Pulse Rate Pulse Rate [Bilateral Dorsalis Pedis] 76 Pulse Rate [Left Pulse Oximeter] 76 75 Respiratory Rate 18 18 16 Blood Pressure Blood Pressure [Left Arm] 149/69 H 138/75 Blood Pressure [Right Arm] Pulse Oximetry 92 97 Oxygen Delivery Method Room Air OxyMask Oxygen Flow Rate 1.5 02/07/25 07:00 02/07/25 07:35 02/07/25 07:35 Temperature 98.4 F Pulse Rate Pulse Rate [Bilateral Dorsalis Pedis] Pulse Rate [Left Pulse Oximeter] 77 77 Respiratory Rate 18 18 18 Blood Pressure Blood Pressure [Left Arm] Blood Pressure [Right Arm] 140/63 H Pulse Oximetry 97 97 Oxygen Delivery Method Room Air Room Air Oxygen Flow Rate Assessment and Plan Assessment and plan (1) Closed fracture of neck of left femur: Problem details: Day 1 s/p left hip ORIF (DOS: 02/06/25, Dr. Zurita). Status: Acute Assessment and Plan: - Mepilex dressing to remain in place x 7-10 days. Dressing is waterproof. May shower. If dressing becomes saturated, please remove. Sutures are dissolvable. - Weight bear as tolerated with walker for assistance. - Regarding her left knee pain, I recommend a left hinged knee brace. I spoke with our Charge Nurse that contacted to supply to order this for Gracia. Size XL. - For pain management, recommend ice, elevation, Tylenol and Oxycodone PRN. I recommend Gracia try to minimize use of hydromorphone as much as possible due to nausea and vomiting. ? - For DVT prophylaxis: aspirin 81 mg BID x 30 days. Also recommend ankle pumps when sedentary and frequent ambulation. - hotel services supervisor consult to discuss discharge planning. - I anticipate patient will be discharged to a SNF. The nursing staff at this facility will perform a wound check upon dressing removal and notify our clinic with any concerns. Depending upon her discharge date, Gracia may also contact our clinic for a follow-up appointment with myself at 2 weeks postoperative. - Patient will follow-up with Dr. Zurita at 6 weeks postoperative. - Notify Orthopedics with any questions or concerns. ([phone])
--- NOTE | 2025-02-07 09:01 | P.IMPN_ITS ---
Assessment and Plan Assessment and plan (1) Closed fracture of neck of left femur: Problem comment: Day 1 s/p left hip ORIF (DOS: 02/06/25, Dr. Zurita). Status: Acute (2) Hypothyroidism (acquired): Problem comment: Continue levothyroxine Status: Chronic (3) Normocytic anemia: Problem comment: - 02/05/25: Hgb 10.6; last Hgb was 12/13 and wnl, no recent CBC in [facility] - 02/06/25: Hgb 9.5 - no melena or GERD, has never had a colonoscopy but previous FOBT negative - source unclear (possibly renal mass/RCC); no evidence of hemorrhage; continue to follow Hgb during stay Status: Acute (4) Seizure: Problem comment: - after meningioma resection in 2013 - continue Keppra Status: Chronic (5) Essential hypertension: Problem comment: - restarted Amlodipine and Lisinopril 02/07, if continues to have normal BPs and tolerating po intake, restart HCTZ 02/08 Status: Chronic (6) Renal mass: Problem comment: - 02/05/25 CT abd/pelvis: 5.5 cm heterogeneous soft tissue mass within the right kidney, suspicious for renal cell carcinoma. - Will need outpatient imaging and f/u. Discussed with patient and her daughter on admission Status: Acute (7) Type 2 diabetes mellitus: Problem comment: - 10/27/24 HgbA1C 6.6% - On Pioglitazone, Metformin, Trulicity (takes on Tuesdays) and Glimipiride as an outpatient - 02/07: has not yet restarted full po intake with nausea; holding Trulicity and Metformin at this time Status: Chronic Plan - per above (schedule APAP for pain management, stop IV narcotics) - ppx: Xarelto 10mg daily x5 days, followed by ASA 81mg BID x25 days - daughter updated bedside, questions answered Subjective Date Seen: 02/07/25 Interval history: Gracia is a 74 yo female who was admitted to the hospital on 02/05 after a ground level mechanical fall at home; in the emergency room was diagnosed with left femoral neck fracture. She is POD #1 from a ORIF with Dr. Zurita of Orthopedic Surgery (02/06/25). Has had pain overnight; received Oxycodone, then IV Dilaudid (followed by nausea). Has not any non-opiate pain medications yet. Comorbidities: Noninsulin dependent DM2 (BG 103-185), seizure d/o (s/p meningioma resection), hyperlipidemia, hypothyroidism, essential HTN, mild normocytic anemia (current Hgb 9.5) Incidentally noted to have a renal mass on admission imaging; this was discussed with patient and daughter on admission and she will have outpatient follow-up with PCP (Dr. Deshpande). Besides mild nausea, Gracia has no concerns for hospitalist team this morning. She is seeing therapies today; likely will require SNF placement. Exam Narrative: Exam Narrative: GEN: Alert and oriented, nontoxic HEENT: EOMIs bilaterally, no scleral icterus CV: RRR, No concerning murmurs R: No tachypnea at rest, LCTA bilaterally Ext: wwp, no concerning edema Skin: No concerning skin lesions or rashes on exposed skin Neuro: Nonfocal Psych: Appropriate Const: Vital Signs, click to edit/add: Vital Signs - 24 hr 02/06/25 11:39 02/06/25 11:45 02/06/25 11:50 Temperature 98 F 98 F 98 F Pulse Rate 70 70 63 Pulse Rate [Bilate ral Dorsalis Pedis ] Pulse Rate [Left P ulse Oximeter] Respiratory Rate 11 L 11 L 15 Blood Pressure 107/46 L 97/50 L 101/50 L Blood Pressure [Le ft Arm] Blood Pressure [Ri ght Arm] Pulse Oximetry 95 96 96 Oxygen Delivery Me thod OxyMask OxyMask OxyMask Oxygen Flow Rate 6 6 6 02/06/25 11:55 02/06/25 12:00 02/06/25 12:05 Temperature 98 F 98 F 98 F Pulse Rate 65 70 70 Pulse Rate [Bilate ral Dorsalis Pedis ] Pulse Rate [Left P ulse Oximeter] Respiratory Rate 12 12 11 L Blood Pressure 101/52 L 105/55 L 108/55 L Blood Pressure [Le ft Arm] Blood Pressure [Ri ght Arm] Pulse Oximetry 97 98 90 Oxygen Delivery Me thod OxyMask Room Air Room Air Oxygen Flow Rate 6 02/06/25 12:10 02/06/25 12:16 02/06/25 12:30 Temperature 97.7 F 96.3 F L 96.9 F L Pulse Rate 67 66 69 Pulse Rate [Bilate ral Dorsalis Pedis ] Pulse Rate [Left P ulse Oximeter] Respiratory Rate 12 14 14 Blood Pressure 117/56 L 122/59 L 118/63 Blood Pressure [Le ft Arm] Blood Pressure [Ri ght Arm] Pulse Oximetry 95 90 96 Oxygen Delivery Me thod Room Air Room Air OxyMask Oxygen Flow Rate 3 02/06/25 12:45 02/06/25 13:00 02/06/25 13:15 Temperature 96.9 F L 97.0 F L 97.1 F L Pulse Rate 70 70 73 Pulse Rate [Bilate ral Dorsalis Pedis ] Pulse Rate [Left P ulse Oximeter] Respiratory Rate 14 14 14 Blood Pressure 120/62 121/63 119/67 Blood Pressure [Le ft Arm] Blood Pressure [Ri ght Arm] Pulse Oximetry 95 96 93 Oxygen Delivery Me thod OxyMask OxyMask Room Air Oxygen Flow Rate 3 3 02/06/25 14:00 02/06/25 14:30 02/06/25 15:00 Temperature Pulse Rate 72 65 Pulse Rate [Bilate ral Dorsalis Pedis ] Pulse Rate [Left P ulse Oximeter] Respiratory Rate 14 Blood Pressure 133/69 121/70 Blood Pressure [Le ft Arm] Blood Pressure [Ri ght Arm] Pulse Oximetry 96 Oxygen Delivery Me od Room Air Room Air Oxygen Flow Rate 02/06/25 15:00 02/06/25 15:00 02/06/25 15:00 Temperature 98.0 F 98.0 F Pulse Rate 75 Pulse Rate [Bilate ral Dorsalis Pedis ] Pulse Rate [Left P ulse Oximeter] 75 Respiratory Rate 14 16 16 Blood Pressure 125/63 Blood Pressure [Le ft Arm] Blood Pressure [Ri ght Arm] 125/63 Pulse Oximetry 96 99 99 Oxygen Delivery Me thod Room Air OxyMask Room Air Oxygen Flow Rate 2 02/06/25 16:00 02/06/25 17:00 02/06/25 18:00 Temperature 98.0 F Pulse Rate 76 71 75 Pulse Rate [Bilate ral Dorsalis Pedis ] Pulse Rate [Left P ulse Oximeter] Respiratory Rate 16 16 16 Blood Pressure 129/66 133/68 131/66 Blood Pressure [Le ft Arm] Blood Pressure [Ri ght Arm] Pulse Oximetry 90 97 99 Oxygen Delivery Me thod OxyMask OxyMask OxyMask Oxygen Flow Rate 2 2 2 02/06/25 19:23 02/06/25 23:00 02/06/25 23:30 Temperature 98.2 F Pulse Rate Pulse Rate [Bilate ral Dorsalis Pedis ] Pulse Rate [Left P ulse Oximeter] 78 Respiratory Rate 20 Blood Pressure Blood Pressure [Le ft Arm] 139/67 Blood Pressure [Ri ght Arm] Pulse Oximetry 98 92 92 Oxygen Delivery Me thod Room Air Room Air Oxygen Flow Rate 02/06/25 23:35 02/06/25 23:35 02/07/25 02:18 Temperature 98.6 F 98.3 F Pulse Rate Pulse Rate [Bilate ral Dorsalis Pedis ] 76 Pulse Rate [Left P ulse Oximeter] 76 75 Respiratory Rate 18 18 16 Blood Pressure Blood Pressure [Le ft Arm] 149/69 H 138/75 Blood Pressure [Ri ght Arm] Pulse Oximetry 92 97 Oxygen Delivery Mo thod Room Air OxyMask Oxygen Flow Rate 1.5 02/07/25 07:00 02/07/25 07:35 02/07/25 07:35 Temperature 98.4 F Pulse Rate Pulse Rate [Bilate ral Dorsalis Pedis ] Pulse Rate [Left P ulse Oximeter] 77 77 Respiratory Rate 18 18 18 Blood Pressure Blood Pressure [Le ft Arm] Blood Pressure [Ri ght Arm] 140/63 H Pulse Oximetry 97 97 Oxygen Delivery Me thod Room Air Room Air Oxygen Flow Rate Labs Labs: Laboratory Results - last 24 hr 02/07/25 06:16 WBC 9.27 RBC 3.14 L Hgb 9.5 L Hct 28.8 L MCV 92 MCH 30 MCHC 33 RDW Coeff of Rossi 14.1 Plt Count 219 Neut % (Auto) 77.1 H Lymph % (Auto) 14.5 L [place] % (Auto) 7.9 Eos % (Auto) 0.2 Baso % (Auto) 0.1 Neut # (Auto) 7.10 H Lymph # (Auto) 1.30 [place] # (Auto) 0.70 Eos # (Auto) 0.02 Baso # (Auto) 0.01 Abs Immat Gran (auto) 0.02 Imm/Tot Granulo (auto) 0.2 Sodium 135 Potassium 4.1 Chloride 101 Carbon Dioxide 31 Anion Gap 3 L BUN 22 Creatinine 0.9 Estimated Creat Clear 45.50 Estimated GFR 67 Glucose 99 Calcium 9.1
[2025-02-07] MEDS: ONDANSETRON 2 MG/ML inj 4 MG IVP (09:05)
[2025-02-07] MEDS: CEFAZOLIN 2 GM in 0.9 % SODIUM CHLORIDE Mini-bag 100 ML IVPB (09:05)
[2025-02-07] MEDS: RIVAROXABAN 10 MG TABLET PO (09:42)
[2025-02-07] MEDS: ACETAMINOPHEN 325 MG TABLET 975 MG PO ×3 (11:36→23:08)
[2025-02-07] MEDS: LEVOTHYROXINE 100 MCG TABLET PO (11:36)
[2025-02-07] MEDS: SENNOSIDES 1 TAB TABLET 2 TAB PO ×2 (11:36→21:34)
--- NOTE | 2025-02-07 14:46 | PC.SOCIAL ---
Addendum entered and electronically signed by Yanet Singh LCSW 02/07/25 15:18: KATY spoke with patient and daughter who accept bed at [facility]. SW notified Libia. KATY connected with who will start the prior authorization. SW to update Libia once prior auth is received. Original Note: Discharge planning: SW met with patient and patient's daughter Shirlene. 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 Daughter explains that herself, her brothers, and aunts and uncles will support in the short term, but if it ends up being longer there would need to be a different plan. SW brought information for [facility] respite as a backup plan for the family. Daughter also inquired about companionship services and SW brought information for this. SW discussed rehab options and patient and daughter would like to review and then inform SW of their choices. Patient's daughter emailed SW their choices: 1) [place] [facility] 2) [facility]? 3) [facility] 4) [facility] [place] KATY sent referral to [facility] and was informed that they have a bed tomorrow through Thursday. Patient's copay after 20 days is $214. KATY to discuss this with family. Patient does need a prior auth for insurance.
[2025-02-07] MEDS: INSULIN ASPART 100 UNIT/ML SUBCUT ×2 (17:29→21:39)
--- NOTE | 2025-02-07 19:34 | PC.NURSE ---
End of Shift: Patient pleasant and cooperative, A&O. VSS, afebrile. SpO2 maintained above 90% on RA when patient is awake, still needing supplemental O2 while asleep. This morning patient felt nauseous and had emesis x2, gave PRN medication and patient reported relief. Patient reports pain in her left hip, managed with ice pack and scheduled tylenol. Encouraged pt to use PRN medication, declined due to feeling nauseas and vomiting this morning. Patient got up to the chair with therapy this shift, pt was unable to get out of the chair this afternoon with the walker due to weakness, had to use EZ stand. Tolerating regular diet.
[2025-02-07] MEDS: ATORVASTATIN CALCIUM 10 MG TABLET 20 MG PO (21:32)
[2025-02-07] MEDS: PIOGLITAZONE HCL 15 MG TABLET 30 MG PO (21:34)
[2025-02-07] MEDS: SODIUM CHLORIDE 0.9 % (FLUSH) 10 ML SYRINGE 5 ML IVF (21:35)
[2025-02-08] VITALS (8 sets, daily range): BP systolic 123–161; BP diastolic 58–80; PULSE 69–79; RESP 16–20; TEMP 36.6–37.1; O2SAT 96–98
[2025-02-08] MEDS: ACETAMINOPHEN 325 MG TABLET 975 MG PO ×4 (05:58→23:25)
[2025-02-08] MEDS: OMEPRAZOLE 20 MG CAPSULE DR PO (05:58)
[2025-02-08 06:29] LABS: Hematocrit 30.2 % (33.0-51.0); Hemoglobin* 10.0 gm/dL (12.0-16.0); Immature Granulocytes Abs Auto 0.03 K/uL (0.00-0.30); Immature Granulocytes Pct Auto 0.4 %; Lymphocytes Absolute Auto 1.30 K/uL (0.90-2.90); Mean Corpuscular HGB Conc 33 gm/dL (32-36); Mean Corpuscular Hemoglobin 31 pg (26-34); Mean Corpuscular Volume 92 fL (80-100); RDW Coefficient of Variation % 14.1 % (11.5-15.5); Red Blood Count 3.28 m/uL (4.00-5.20); Slide Review Reflex No; White Blood Count* 8.47 K/uL (4.50-11.00)
--- NOTE | 2025-02-08 06:43 | PC.NURSE ---
End of shift note [id number]: Pt noted to be A&Ox4. VSS- pt has been afebrile. She continues to require supplemental oxygen via Oxymask when sleeping. Pt requiring assist of 2 with EZ stand when transferring and has been refusing to have external catheter removed despite education of the importance of mobility, especially following surgery. Bilateral plexi pulses worn. Dressing to L hip C/D/I and CMS to LLE intact. Bed alarm on and call light within reach.
[2025-02-08] MEDS: RIVAROXABAN 10 MG TABLET PO (09:02)
[2025-02-08] MEDS: LEVOTHYROXINE 100 MCG TABLET PO (09:02)
[2025-02-08] MEDS: GLIMEPIRIDE 4 MG TABLET 8 MG PO (09:02)
[2025-02-08] MEDS: AMLODIPINE 5 MG TABLET PO (09:02)
[2025-02-08] MEDS: SENNOSIDES 1 TAB TABLET 2 TAB PO ×2 (09:02→21:38)
[2025-02-08] MEDS: SODIUM CHLORIDE 0.9 % (FLUSH) 10 ML SYRINGE 5 ML IVF ×2 (09:05→21:39)
--- NOTE | 2025-02-08 12:24 | PM.IMPN1 ---
Assessment and Plan Assessment and plan (1) Closed fracture of neck of left femur: Problem comment: - s/p left hip ORIF (DOS: 02/06/25, Dr. Zurita) Status: Acute (2) Hypothyroidism (acquired): Problem comment: Continue levothyroxine Status: Chronic (3) Normocytic anemia: Problem comment: - 02/05/25: Hgb 10.6; last Hgb was 12/13 and wnl, no recent CBC in [facility] - 02/06/25: Hgb 9.5 - 02/08/25: Hgb 10.0 - no melena or GERD, has never had a colonoscopy but previous FOBT negative - source unclear (possibly renal mass/RCC); no evidence of hemorrhage; continue to follow Hgb during stay Status: Acute (4) Seizure: Problem comment: - after meningioma resection in 2013 - continue home dose of Keppra Status: Chronic (5) Essential hypertension: Problem comment: - restarted Amlodipine and Lisinopril 02/07 - restarting HCTZ 02/08 Status: Chronic (6) Renal mass: Problem comment: - 02/05/25 CT abd/pelvis: 5.5 cm heterogeneous soft tissue mass within the right kidney, suspicious for renal cell carcinoma. - Will need outpatient imaging and f/u. Discussed with patient and her daughter on admission Status: Acute (7) Type 2 diabetes mellitus: Problem comment: - 10/27/24 HgbA1C 6.6% - On Pioglitazone, Metformin, Trulicity (takes on Tuesdays) and Glimipiride as an outpatient - 02/07: has not yet restarted full po intake with nausea; holding Metformin at this time - 02/08: tolerating po intake, restarting Metformin Status: Chronic Plan - per above (home medications, therapies, await placement) - ppx: Xarelto 10mg daily x5 days, followed by ASA 81mg BID x25 days (ASA starts 02/12) Subjective Date Seen: 02/08/25 Interval history: Gracia is a 74 yo female who was admitted to the hospital on 02/05 after a ground level mechanical fall at home; in the emergency room was diagnosed with left femoral neck fracture. She is POD #[address] ORIF with Dr. Zurita of Orthopedic Surgery (02/06/25). Comorbidities: Noninsulin dependent DM2 (BG 103-185), seizure d/o (s/p meningioma resection), hyperlipidemia, hypothyroidism, essential HTN, mild normocytic anemia (current Hgb 9.5) Incidentally noted to have a renal mass on admission imaging; this was discussed with patient and daughter on admission and she will have outpatient follow-up with PCP (Dr. Deshpande). Gracia has no concerns for hospitalist team this morning. Pain control adequate with scheduled APAP and low dose Oxycodone. Working with therapies, SNF stay recommended, awaiting placement. Exam Narrative: Exam Narrative: GEN: Alert and oriented, nontoxic. She is sitting comfortably in bedside chair HEENT: EOMIs bilaterally, no scleral icterus CV: RRR, No concerning murmurs R: LCTA bilaterally without concerning wheezing Ext: Wearing Clark hose bilaterally Skin: No concerning skin lesions or rashes on exposed skin Neuro: Nonfocal Psych: Appropriate Const: Vital Signs, click to edit/add: Vital Signs - 24 hr 02/07/25 15:00 02/07/25 15:00 02/07/25 15:00 Temperature 98.4 F Pulse Rate [Left P ulse Oximeter] 65 65 Respiratory Rate 18 18 18 Blood Pressure [Le ft Arm] Blood Pressure [Ri ght Arm] 132/65 Pulse Oximetry 94 94 Oxygen Delivery Me thod Room Air Room Air Oxygen Flow Rate 02/07/25 20:05 02/07/25 23:00 02/07/25 23:06 Temperature 98.1 F 98.7 F Pulse Rate [Left P ulse Oximeter] 65 79 79 Respiratory Rate 18 18 18 Blood Pressure [Le ft Arm] 159/74 H 143/69 H Blood Pressure [Ri ght Arm] Pulse Oximetry 92 95 Oxygen Delivery Me thod Room Air Oxygen Flow Rate 02/07/25 23:08 02/08/25 01:00 02/08/25 03:00 Temperature 98.8 F Pulse Rate [Left P ulse Oximeter] 75 Respiratory Rate 18 20 Blood Pressure [Le ft Arm] 126/64 Blood Pressure [Ri ght Arm] Pulse Oximetry 95 96 97 Oxygen Delivery Me thod Room Air OxyMask Oxygen Flow Rate 1.5 02/08/25 08:00 02/08/25 08:00 02/08/25 08:00 Temperature 98.2 F Pulse Rate [Left P ulse Oximeter] 69 69 Respiratory Rate 20 20 20 Blood Pressure [Le ft Arm] Blood Pressure [Ri ght Arm] 140/68 H Pulse Oximetry 97 97 Oxygen Delivery Me thod Room Air OxyMask Room Air Oxygen Flow Rate Labs Labs: Laboratory Results - last 24 hr 02/08/25 06:13 WBC 8.47 RBC 3.28 L Hgb 10.0 L Hct 30.2 L MCV 92 MCH 31 MCHC 33 RDW Coeff of Rossi 14.1 Plt Count 204 Neut % (Auto) 75.4 H Lymph % (Auto) 15.3 L [place] % (Auto) 8.0 Eos % (Auto) 0.7 Baso % (Auto) 0.2 Neut # (Auto) 6.40 Lymph # (Auto) 1.30 [place] # (Auto) 0.70 Eos # (Auto) 0.06 Baso # (Auto) 0.02 Abs Immat Gran (auto) 0.03 Imm/Tot Granulo (auto) 0.4
--- NOTE | 2025-02-08 13:28 | PC.SOCIAL ---
Addendum entered and electronically signed by Yanet Singh LCSW 02/08/25 15:16: KATY obtained prior auth approval from and sent this to [facility] at [facility]. Original Note: Discharge Planning: SW received email from patient's daughter inquiring about Medicare 3-night stay. SW informed that patient doesn't technically need the 3 night stay due to having an advantage plan and that is why we need a prior authorization. KATY met with patient who inquired about transport and cost to [facility]. SW discussed that Medicare typically doesn't pay and so the cost would be $113 with our [facility]. Patient was in agreement with this and signed the EMS wheelchair form. Patient had questions about billing and SW explained she could get the number for the billing dept but SW couldn't answer her questions. KATY discussed that prior auth is still not back and so discharge won't happen today. Patient and son were understanding. KATY completed patient's PAS ([id number]) and sent this to [facility] at [facility]. Libia is aware that patient won't be able to discharge due to prior auth still pending and will plan for discharge tomorrow.
--- NOTE | 2025-02-08 19:50 | PC.NURSE ---
Up with assist of 2, gait belt, & platform walker to commode at bed/chair side. Pt needing encouragement throughout day. Pt states moving more has helped my stiff leg. Active ice to hip, thigh, & knee per pt request. Pt tolerating regular diet, denies n/v.
[2025-02-08] MEDS: PIOGLITAZONE HCL 15 MG TABLET 30 MG PO (21:38)
[2025-02-08] MEDS: ATORVASTATIN CALCIUM 10 MG TABLET 20 MG PO (21:38)
[2025-02-08] MEDS: INSULIN ASPART 100 UNIT/ML SUBCUT (21:39)
[2025-02-09 01:00] VITALS: O2SAT 95
[2025-02-09 02:36] VITALS: BP 156/87; PULSE 63; RESP 16; TEMP 36.8; O2SAT 97
[2025-02-09] MEDS: OMEPRAZOLE 20 MG CAPSULE DR PO (06:27)
[2025-02-09] MEDS: ACETAMINOPHEN 325 MG TABLET 975 MG PO (06:27)
[2025-02-09 06:42] LABS: Hematocrit 28.5 % (33.0-51.0); Hemoglobin* 9.3 gm/dL (12.0-16.0); Immature Granulocytes Abs Auto 0.02 K/uL (0.00-0.30); Immature Granulocytes Pct Auto 0.2 %; Mean Corpuscular HGB Conc 33 gm/dL (32-36); Mean Corpuscular Hemoglobin 30 pg (26-34); Mean Corpuscular Volume 93 fL (80-100); RDW Coefficient of Variation % 13.9 % (11.5-15.5); Red Blood Count 3.08 m/uL (4.00-5.20); White Blood Count* 8.13 K/uL (4.50-11.00)
[2025-02-09 06:46] LABS: Lymphocytes Absolute Auto 0.90 K/uL (0.90-2.90); Slide Review Reflex No
[2025-02-09 06:55] LABS: Chloride* 101 mmol/L (96-114); Potassium* 3.7 mmol/L (3.6-5.1); Sodium* 137 mmol/L (135-149)
--- NOTE | 2025-02-09 06:56 | PC.NURSE ---
End of shift: Pt pleasant, alert and oriented. VSS. Pain rated 6/10, prn oxy given, pt stated improvement. Pt took off wrist braces for the day and noticed the left hand was quite swollen and bruised. Pt stated it hadn't looked like this the night previous. Pt believes it was injured during the fall, thinking that it was hyperextended when bracing herself. RN offered ice, pt refused. BG 222, sliding scale protocol followed. Mild edema noted bilaterally on the LE. Dressing C/D/I. 1-2a with walker and GB to the commode. Pt in bed, appears to be resting call light within reach.?
[2025-02-09 06:58] LABS: Anion Gap 4 mEq/L (7-15); Blood Urea Nitrogen* 29 mg/dL (7-30); Carbon Dioxide* 32 mmol/L (20-32); Creatinine* 0.9 mg/dL (0.5-1.5); Est. Creatinine Clearance* 45.50; Estimated Glomerular Filt Rate 67 ml/min
[2025-02-09 06:59] LABS: Calcium* 9.1 mg/dL (8.4-10.6); Glucose* 129 mg/dL (60-115)
[2025-02-09 07:00] VITALS: RESP 18; O2SAT 100
--- NOTE | 2025-02-09 09:00 | P.DS_ITS ---
DS: Providers Provider Date Seen: 02/09/25 Date of admission: 02/06/25 00:07 Primary care physician: Miles Deshpande MD Admitting Clinician: Keli Whitehead MD Consults: Orthopedic Surgery, SW, PT, OT Attending Physician on discharge: Mary Castellano MD Date of Discharge: 02/09/25 DS: Diagnosis Discharge Diagnosis (1) Closed fracture of neck of left femur: Status: Acute Problem details: - s/p left hip ORIF (DOS: 02/06/25, Dr. Zurita) (2) Hypothyroidism (acquired): Status: Chronic Problem details: - continued levothyroxine (3) Normocytic anemia: Status: Acute Problem details: - 02/05/25: Hgb 10.6; last Hgb was 12/13 and wnl, no recent CBC in [facility] - during stay, Hgb stable with jonathon of 9.3 - no melena or GERD, has never had a colonoscopy but previous FOBT negative - source unclear (possibly renal mass/RCC); no evidence of hemorrhage (4) Seizure: Status: Chronic Problem details: - after meningioma resection in 2013 - continue home dose of Keppra (5) Essential hypertension: Status: Chronic Problem details: - restarted Amlodipine and Lisinopril 02/07 - restarted HCTZ 02/08 (6) Renal mass: Status: Acute Problem details: - 02/05/25 CT abd/pelvis: 5.5 cm heterogeneous soft tissue mass within the right kidney, suspicious for renal cell carcinoma. - Will need outpatient imaging and f/u with PCP, patient and family aware (7) Type 2 diabetes mellitus: Status: Chronic Problem details: - 10/27/24 HgbA1C 6.6% - On Pioglitazone, Metformin, Trulicity (takes on Tuesdays) and Glimipiride as an outpatient - 02/07: has not yet restarted full po intake with nausea; holding Metformin at this time - 02/08: tolerating po intake, restarted Metformin DS: Summary Hospital Course Hospital Course: Gracia is a 74 yo female who was admitted to the hospital on 02/05 after a ground level mechanical fall at home; in the ER was diagnosed with a left femoral neck fracture. She had a L hip ORIF with Dr. Zurita of Orthopedic Surgery (02/06/25). Comorbidities: Noninsulin dependent DM2 (BG 103-222 during stay), seizure d/o (s/p meningioma resection), hyperlipidemia, hypothyroidism, essential HTN, mild normocytic anemia (current Hgb 9.5) Incidentally noted to have a renal mass on admission imaging; this was discussed with patient and daughter on admission and she will have outpatient follow-up with PCP (Dr. Deshpande). Postoperatively, patient did well. Pain control was adequate with scheduled APAP and low dose Oxycodone. Worked with therapies, SNF stay recommended, [facility] bed available on 02/09/25 and she was discharged in improved/stable condition. Status at Discharge Functional status at discharge: uses cane/walker Overall status at discharge: patient is progressing back to baseline Time Spent with Patient Time attestation: Total time spent providing and/or coordinating discharge services: Time spent: Greater than 30 minutes Specific discharge activities: Medication reconciliation, pt education, multidisciplinary team meeting Exam Narrative: Exam Narrative: GEN: Alert and oriented, sitting comfortably in bedside chair HEENT: Normal external ears, EOMIs bilaterally, no scleral icterus CV: RRR, No concerning murmurs, rubs, or gallops R: LCTA bilaterally without concerning wheezing, rales, or rhonchi Ext: Mild edema of left thumb/hand, wearing brace, + ROM. Ortho following Skin: No other concerning skin lesions or rashes on exposed skin Neuro: No focal deficits, no resting tremor, using walker for ambulation Psych: Appropriate Const: Vital Signs, click to edit/add: Vital Signs - 24 hr 02/08/25 11:00 02/08/25 15:00 02/08/25 15:00 Temperature 98.2 F Pulse Rate [Left P ulse Oximeter] 73 79 Respiratory Rate 20 20 Blood Pressure [Ri ght Arm] 139/80 Pulse Oximetry 97 98 Oxygen Delivery Me thod Room Air Room Air Oxygen Flow Rate 02/08/25 15:00 02/08/25 20:37 02/08/25 23:00 Temperature 98.1 F 98.2 F Pulse Rate [Left P ulse Oximeter] 79 73 73 Respiratory Rate 20 18 18 Blood Pressure [Ri ght Arm] 123/58 L 145/72 H Pulse Oximetry 98 97 Oxygen Delivery Me thod Room Air Room Air Oxygen Flow Rate 02/08/25 23:00 02/08/25 23:27 02/09/25 01:00 Temperature 97.9 F Pulse Rate [Left P ulse Oximeter] 76 Respiratory Rate 18 16 Blood Pressure [Ri ght Arm] 161/76 H Pulse Oximetry 97 96 95 Oxygen Delivery Me thod Room Air Room Air Oxygen Flow Rate 1.5 02/09/25 02:36 Temperature 98.2 F Pulse Rate [Left P ulse Oximeter] 63 Respiratory Rate 16 Blood Pressure [Ri ght Arm] 156/87 H Pulse Oximetry 97 Oxygen Delivery Me thod Room Air Oxygen Flow Rate DS: Data Data Completed and Pending Labs on day of discharge: Labs from last 24 hours 02/09/25 06:26 WBC 8.13 RBC 3.08 L Hgb 9.3 L Hct 28.5 L MCV 93 MCH 30 MCHC 33 RDW Coeff of Rossi 13.9 Plt Count 207 Neut % (Auto) 81.6 H Lymph % (Auto) 11.2 L [place] % (Auto) 6.0 Eos % (Auto) 0.9 Baso % (Auto) 0.1 Neut # (Auto) 6.60 Lymph # (Auto) 0.90 [place] # (Auto) 0.50 Eos # (Auto) 0.07 Baso # (Auto) 0.01 Abs Immat Gran (auto) 0.02 Imm/Tot Granulo (auto) 0.2 Sodium 137 Potassium 3.7 Chloride 101 Carbon Dioxide 32 Anion Gap 4 L BUN 29 Creatinine 0.9 Estimated Creat Clear 45.50 Estimated GFR 67 Glucose 129 H Calcium 9.1 Discharge Plan Discharge Disposition: [facility] Date of Admission: 02/06/25 00:07 Attending Provider on Discharge: Mary Castellano Consulting Providers: Gurpreet Holland Primary Care Provider: Miles Deshpande Condition: Improved Anticipated Discharge Date/Time: 02/09/25 08:20 Discharge Medications: New sennosides [Senna Lax] 8.6 mg Tablet 8.6 mg PO BID PRN (Reason: constipation) Qty: 60 0RF acetaminophen 325 mg Tablet 975 mg PO Q6H Qty: 60 0RF Rx Instructions: scheduled, can move to prn when pain better controlled omeprazole 20 mg Capsule,Delayed Release(Dr/Ec) 20 mg PO DAILY@0700 Qty: 30 0RF Rx Instructions: while on Xarelto/ASA oxycodone 5 mg Tablet 2.5 mg PO Q6H PRN (Reason: Pain) Qty: 30 0RF Xarelto 10 mg Tablet 10 mg PO DAILY 2 Days Qty: 2 0RF aspirin 81 mg tablet 81 mg PO BID Qty: 50 0RF Rx Instructions: start on 02/12, continue through 03/09 for DVT ppx Continued hydrochlorothiazide 50 mg tablet 50 mg PO DAILY levothyroxine 100 mcg tablet 100 mcg PO QAM glimepiride 4 mg tablet 8 mg PO DAILY lisinopril 40 mg tablet 40 mg PO DAILY metformin 500 mg tablet extended release 24 hr 2,000 mg PO DAILY Rx Instructions: Takes 1 in the morning and 3 at night levetiracetam 1,000 mg tablet 1,000 mg PO BID diclofenac sodium 1 % gel 2 g topical QID PRN Trulicity 3 mg/0.5 mL pen injector 3 mg subcut Q7D Rx Instructions: Tuesdays cetirizine 10 mg tablet 10 mg PO DAILY PRN atorvastatin 20 mg tablet 20 mg PO DAILY amlodipine 5 mg tablet 5 mg PO DAILY pioglitazone 30 mg tablet 30 mg PO HS Discharge Orders: Discharge Order (Routine); Ordered 02/09/25 Ordered By: Mary Castellano Activity Level: Weight Bearing as Tolerated and Use Walker Activity Detail: - Mepilex dressing to remain in place x 7-10 days. Dressing is waterproof. May shower. If dressing becomes saturated, please remove. Sutures are dissolvable. - Weight bear as tolerated with walker for assistance. - Regarding her left knee pain, patient will wear a left hinged knee brace as needed. - For pain management, recommend ice, elevation, Tylenol and Oxycodone PRN. - For DVT prophylaxis: Xarelto 10mg x5 days; on 02/12 you will start ASA 81mg twice/day x25 days. Also recommend ankle pumps when sedentary and frequent ambulation. - At SNF: The nursing staff to perform a wound check upon dressing removal and notify our clinic with any concerns. Depending upon her discharge date, Gracia may also contact our clinic for a follow-up appointment with myself at 2 weeks postop. - Patient will follow-up with Dr. Zurita at 6 weeks postoperative. - Notify Orthopedics with any questions or concerns. ([phone]) Discharge Diet: Diabetic Follow Up Appointments: Louis Zurita MD [Staff Physician, Orthopedics] Referral Note: Follow-up at 6 weeks postop. Judit Austin PA-C [Physician [facility], Orthopedics] Referral Note: Follow-up at 2 weeks postop. Miles Deshpande MD [Primary Care Provider, [facility]] Referral Note: Call [facility] and make an appt with Dr. Deshpande within a week after leaving [facility]. You can then discuss your kidney mass, anemia, fracture, etc Forms: [facility] Instructions Admit to: SNF Discharge Potential: Good Length of Stay: <30 days Can use facility standing orders?: Yes Code Status: Full Code TEDs: Bilateral Knee Rehab Potential: Good Therapy: Physical Therapy and Occupational Therapy Therapy Orders: Evaluate and Treat Therapy Orders Additional Information: recent hip fracture and ORIF Oxygen: No Urinary Catheter: No Orders are good >30 days: Yes Signature: Mary Castellano MD
[2025-02-09] MEDS: AMLODIPINE 5 MG TABLET PO (09:27)
[2025-02-09] MEDS: GLIMEPIRIDE 4 MG TABLET 8 MG PO (09:27)
[2025-02-09] MEDS: LEVOTHYROXINE 100 MCG TABLET PO (09:27)
[2025-02-09] MEDS: RIVAROXABAN 10 MG TABLET PO (09:28)
[2025-02-09 09:30] VITALS: BP 129/65; PULSE 71; RESP 18; TEMP 36.8; O2SAT 100
[2025-02-09] MEDS: SENNOSIDES 1 TAB TABLET 2 TAB PO (09:41)
[2025-02-09] MEDS: SODIUM CHLORIDE 0.9 % (FLUSH) 10 ML SYRINGE 5 ML IVF (09:42)
[2025-02-09] MEDS: METFORMIN ER 500 MG 2000 MG PO (09:42)
[2025-02-09 11:00] VITALS: BP 128/66; PULSE 74; RESP 18; TEMP 37; O2SAT 95
[2025-02-09] MEDS: INSULIN ASPART 100 UNIT/ML SUBCUT (11:38)
--- NOTE | 2025-02-09 12:00 | PC.SOCIAL ---
Discharge planning: Met with pt regarding d/c plan to [facility] for rehab. Pt is aware and pleased with this plan. Pt shared she is pleased her family has stepped up to figure out a plan for care for her at home as she has been the caregiver for him. Provided pt with copy of the Important Message from Medicare and explained her right to appeal discharge. Pt shared she is pleased with the care at this facility and has no concerns regarding d/c today. Discharge information was secure emailed to [facility] and EMS transportation has been arranged at patient's request.
--- NOTE | 2025-02-09 12:53 | PC.NURSE ---
Discharge: Patient pleasant and cooperative, A&O. VSS, afebrile. SpO2 maintained above 90% on RA. Dressing to left hip C/D/I. IV removed with tip intact. going to [facility] via EMS
== END 2025-02-09 12:30 | DRG 482 ==
LOC: ED 22:48 → MEDSURG 23:09
PROVIDERS: Family Medicine; Orthopaedic Surgery Sports Medicine; Admitting Provider Family Medicine; Emergency Provider Emergency Medicine; PCP Family Medicine; Visit Provider Family Medicine
PROC: 0QS704Z Reposition Left Upper Femur with Internal Fixation Device, Open Approach (ICD-10-PCS; principal; 2025-02-06 10:00)
DX: S72.002A Fracture of unspecified part of neck of left femur, initial encounter for closed fracture (principal); G89.18 Other acute postprocedural pain; D41.01 Neoplasm of uncertain behavior of right kidney; E11.9 Type 2 diabetes mellitus without complications; D64.9 Anemia, unspecified; S99.911A Unspecified injury of right ankle, initial encounter; S69.92XA Unspecified injury of left wrist, hand and finger(s), initial encounter; G40.909 Epilepsy, unspecified, not intractable, without status epilepticus; I10 Essential (primary) hypertension; Z79.85 Long-term (current) use of injectable non-insulin antidiabetic drugs; Z79.84 Long term (current) use of oral hypoglycemic drugs; Z79.01 Long term (current) use of anticoagulants; Z79.82 Long term (current) use of aspirin; W01.0XXA Fall on same level from slipping, tripping and stumbling without subsequent striking against object, initial encounter; Y93.G1 Activity, food preparation and clean up; Y92.000 Kitchen of unspecified non-institutional (private) residence as the place of occurrence of the external cause; M54.50 Low back pain, unspecified; G89.29 Other chronic pain; E03.9 Hypothyroidism, unspecified; E78.5 Hyperlipidemia, unspecified
CPT/HCPCS: 01210; 01230; 36415; 64450; 71260; 73501; 73502; 73560; 73610; 74177; 76000; 76942; 80048; 82565; 82962; 85025; 85610; 93005; 94761; 97110; 97116; 97161; 97165; 97530; 97535; 99100; 99284; 99285; A9270; C1713; J0690; J1100; J1171; J2250; J2405; J2704; J2765; J2795; J3010; J3490; J7030; J7120; Q9967

== ENCOUNTER 2025-02-09 12:30 | Outpatient (CLI) | payer MEDICARE, SELFPAY | END 2025-02-09 12:31 | disposition home or self-care (01) | PROVIDERS: PCP Family Medicine; Visit Provider Family Medicine | DX: R53.1 Weakness (principal); Z99.3 Dependence on wheelchair | CPT/HCPCS: A0425; A0428 ==

== ENCOUNTER 2025-06-19 13:38 | Outpatient (CLI) | payer MEDICARE, SELFPAY ==
--- NOTE | 2025-06-19 14:00 | CRLHL7_ITS ---
For Patients: As a result of the Century Cures Act, medical imaging exams and procedure reports are released immediately into your electronic medical record. You may view this report before your referring provider. If you have questions, please contact your health care provider. Indication: Renal cell carcinoma Technique: Postcontrast CT chest, abdomen and pelvis. 99 cc Isovue 370 intravenous contrast. Please note that all CT scans at this facility use dose modulation, iterative reconstruction, and/or weight-based dosing when appropriate to reduce radiation dose to as low as reasonably achievable. Comparison: 02/05/2025 Findings: In the chest, no pulmonary nodule is present. Mild dependent atelectasis. No pleural effusion. No pericardial effusion. No mediastinal, hilar or axillary adenopathy. Incidental calcification within the right thyroid lobe. Chronic compression deformity of T12, mild. No infiltrate. In the abdomen, postoperative changes of right nephrectomy noted. Left kidney normal. No adenopathy. No adrenal nodule. Chronic calcification within the spleen. Benign fat density lesion in the right hepatic lobe. Mild atrophy of the pancreas. Gallbladder normal. Atherosclerotic disease. No aneurysm. No enlarged lymph nodes. In the pelvis, the bladder is incompletely distended. No pelvic mass. No adenopathy. No bowel obstruction or free air. No free fluid. No abscess. Postop changes to the left proximal femur. Impression: No evidence of metastatic disease. Please note that all CT scans at this facility use dose modulation, iterative reconstruction, and/or weight-based dosing when appropriate to reduce radiation dose to as low as reasonably achievable. Dictated by Stu Montgomery MD @ 06/20/2025 11:21:52 AM (Electronically Signed)
[2025-06-19 14:16] LABS: Creatinine* 1.7 mg/dL (0.5-1.5); Estimated Glomerular Filt Rate 31 ml/min
== END 2025-06-19 13:39 | disposition home or self-care (01) ==
LOC: CT 13:39
PROVIDERS: PCP Family Medicine; Visit Provider Nurse Practitioner Adult Health
DX: C64.1 Malignant neoplasm of right kidney, except renal pelvis (principal)
CPT/HCPCS: 36415; 71260; 74177; 82565; Q9967